=== PATIENT | female | born 1960 | race Caucasian/White ===

== ENCOUNTER → 2024-03-02 13:55 | Outpatient (REF) | payer OTHER, SELFPAY | LOC: RAD 13:55 | PROVIDERS: ATTENDING PHYSICIAN Nurse Practitioner Family; FAMILY PHYSICIAN Family Medicine | DX: R10.9 Unspecified abdominal pain (principal) | CPT/HCPCS: 76775 ==

== ENCOUNTER → 2024-04-20 11:39 | Outpatient (REF) | payer OTHER, SELFPAY | LOC: WDC 11:39 | PROVIDERS: ATTENDING PHYSICIAN Obstetrics & Gynecology; FAMILY PHYSICIAN Family Medicine | DX: Z12.31 Encounter for screening mammogram for malignant neoplasm of breast (principal) | CPT/HCPCS: 77063; 77067 ==

== ENCOUNTER → 2024-05-05 08:34 | Outpatient (REF) | payer OTHER, SELFPAY | LOC: WDC 08:34 | PROVIDERS: ATTENDING PHYSICIAN Obstetrics & Gynecology; FAMILY PHYSICIAN Family Medicine | DX: R92.8 Other abnormal and inconclusive findings on diagnostic imaging of breast (principal) | CPT/HCPCS: 76642 ==

== ENCOUNTER → 2024-05-20 08:13 | Outpatient (REF) | payer OTHER, SELFPAY ==
--- NOTE | 2024-05-20 13:37 | OID.BR.INTR ---
[facility] Breast Navigator - Initial
- -
Date of Contact: 05/20/24
Met with patient. Patient given written information on navigator services available at [facility]. Will follow up as needed per protocol.
== END ==
LOC: WDC 08:13
PROVIDERS: ATTENDING PHYSICIAN Obstetrics & Gynecology; FAMILY PHYSICIAN Family Medicine
DX: N63.14 Unspecified lump in the right breast, lower inner quadrant (principal)
CPT/HCPCS: 88305; 19083; 88341; 88342; 88360; A4648

== ENCOUNTER 2024-06-19 06:33 | Day surgery (SDC) | payer OTHER, SELFPAY ==
[2024-06-19] VITALS (10 sets, daily range): BP systolic 110–146; BP diastolic 57–82; BMI 22.5
[2024-06-19] MEDS: TYLENOL 1000 MG PO (09:55)
[2024-06-19] MEDS: VANCOCIN 200 IV (09:55)
[2024-06-19] MEDS: LOVENOX 40 MG SC (09:59)
== END 2024-06-19 13:19 | disposition home or self-care (01) ==
LOC: SDS 06:33
PROVIDERS: ATTENDING PHYSICIAN Surgery; FAMILY PHYSICIAN Family Medicine
DX: C50.911 Malignant neoplasm of unspecified site of right female breast (principal); N60.11 Diffuse cystic mastopathy of right breast; Z17.0 Estrogen receptor positive status [ER+]
CPT/HCPCS: 38525; 19301; 88305; 88307; 88332; 76098; 88331; 88333; 88342; A4648; L8000

== ENCOUNTER → 2024-07-16 13:53 | Outpatient (REF) | payer OTHER, SELFPAY | LOC: MRI 3T 13:53 | PROVIDERS: ATTENDING PHYSICIAN Physician Assistant; FAMILY PHYSICIAN Family Medicine | DX: D32.9 Benign neoplasm of meninges, unspecified (principal) | CPT/HCPCS: 70553; A9575 ==

== ENCOUNTER 2024-12-02 07:55 | Outpatient (RCR) | payer OTHER, SELFPAY | END 2024-12-02 23:59 | disposition home or self-care (01) | LOC: RPT 07:55 | PROVIDERS: ATTENDING PHYSICIAN Radiology Radiation Oncology; FAMILY PHYSICIAN Family Medicine | DX: C50.111 Malignant neoplasm of central portion of right female breast (principal); Z17.0 Estrogen receptor positive status [ER+]; L90.5 Scar conditions and fibrosis of skin; M62.81 Muscle weakness (generalized); Z98.890 Other specified postprocedural states | CPT/HCPCS: 97140; 97163; 97530 ==

== ENCOUNTER → 2024-12-04 09:37 | Outpatient (REF) | payer OTHER, SELFPAY | LOC: WOUND 09:37 | PROVIDERS: ATTENDING PHYSICIAN Surgery; FAMILY PHYSICIAN Family Medicine | DX: T81.31XA Disruption of external operation (surgical) wound, not elsewhere classified, initial encounter (principal); L59.8 Other specified disorders of the skin and subcutaneous tissue related to radiation; Z98.890 Other specified postprocedural states; Z86.011 Personal history of benign neoplasm of the brain; D25.9 Leiomyoma of uterus, unspecified; Y83.8 Other surgical procedures as the cause of abnormal reaction of the patient, or of later complication, without mention of misadventure at the time of the procedure | CPT/HCPCS: 99204 ==

== ENCOUNTER 2024-12-22 09:46 | Outpatient (RCR) | payer OTHER, SELFPAY | END 2024-12-22 23:59 | disposition home or self-care (01) | LOC: RPT 09:46 | PROVIDERS: ATTENDING PHYSICIAN Radiology Radiation Oncology; FAMILY PHYSICIAN Family Medicine | DX: C50.111 Malignant neoplasm of central portion of right female breast (principal); Z17.0 Estrogen receptor positive status [ER+]; L90.5 Scar conditions and fibrosis of skin; M62.81 Muscle weakness (generalized) | CPT/HCPCS: 97110; 97140 ==

== ENCOUNTER → 2025-01-26 11:23 | Outpatient (REF) | payer OTHER, SELFPAY | LOC: RAD 11:23 | PROVIDERS: ATTENDING PHYSICIAN Specialist; FAMILY PHYSICIAN Family Medicine | DX: N28.1 Cyst of kidney, acquired (principal) | CPT/HCPCS: 76775 ==

== ENCOUNTER → 2025-02-26 09:45 | Outpatient (REF) | payer OTHER, SELFPAY | LOC: RAD 09:45 | PROVIDERS: ATTENDING PHYSICIAN Obstetrics & Gynecology | DX: Z78.0 Asymptomatic menopausal state (principal) | CPT/HCPCS: 77080 ==

== ENCOUNTER → 2025-04-16 12:03 | Outpatient (REF) | payer OTHER, SELFPAY | LOC: MRI 12:03 | PROVIDERS: ATTENDING PHYSICIAN Specialist; FAMILY PHYSICIAN Family Medicine | DX: N28.89 Other specified disorders of kidney and ureter (principal) | CPT/HCPCS: 74183; A9575 ==

== ENCOUNTER → 2025-04-21 10:32 | Outpatient (REF) | payer OTHER, SELFPAY | LOC: WDC 10:32 | PROVIDERS: ATTENDING PHYSICIAN Family Medicine Geriatric Medicine; FAMILY PHYSICIAN Family Medicine | DX: Z12.31 Encounter for screening mammogram for malignant neoplasm of breast (principal); Z85.3 Personal history of malignant neoplasm of breast | CPT/HCPCS: 77063; 77067 ==

== ENCOUNTER → 2025-04-22 08:57 | Outpatient (REF) | payer OTHER, SELFPAY | LOC: RAD 08:57 | PROVIDERS: ATTENDING PHYSICIAN Obstetrics & Gynecology; FAMILY PHYSICIAN Family Medicine | DX: D21.9 Benign neoplasm of connective and other soft tissue, unspecified (principal); R14.0 Abdominal distension (gaseous) | CPT/HCPCS: 76830; 76856 ==

== ENCOUNTER → 2025-05-12 09:37 | Outpatient (REF) | payer OTHER, SELFPAY | LOC: WDC 09:37 | PROVIDERS: ATTENDING PHYSICIAN Family Medicine Geriatric Medicine; FAMILY PHYSICIAN Family Medicine | DX: R92.333 Mammographic heterogeneous density, bilateral breasts (principal) | CPT/HCPCS: 76641 ==

== ENCOUNTER 2025-07-07 17:36 | Inpatient (IN) | payer OTHER, SELFPAY ==
[2025-07-07] VITALS (14 sets, daily range): BP systolic 99–121; BP diastolic 45–83; BMI 24.6
[2025-07-07 12:17] LABS: Hematocrit 36.7 % (37.0-47.0); Hemoglobin 12.6 g/dL (12.0-16.0); Mean Corp Hgb Conc. 34.3 g/dL (33.0-37.0); Mean Corpuscular Volume 87.4 fL (81.0-99.0); Nucleated Red Blood Cells % 0 %; Platelet Count 259 10^3/uL (130-400); Red Cell Dist. Width 12.2 % (11.5-14.5)
[2025-07-07 12:35] LABS: ALT (SGPT) 29 U/L (0-35); AST (SGOT) 102 U/L (14-36); Albumin 4.3 g/dl (3.5-5.0); Alkaline Phosphatase 77 U/L (38-126); Blood Urea Nitrogen 26 mg/dl (7-17); Calcium 9.4 mg/dl (8.4-10.2); Carbon Dioxide 27 mmol/L (22-30); Chloride 101 mmol/L (98-107); Glucose 146 mg/dl (70-99); Lipase 96 U/L (23-300); Potassium 4.4 mmol/L (3.5-5.1); Sodium 136 mmol/L (135-145); Total Protein 6.9 g/dl (6.3-8.2); eGFR > 60.00
[2025-07-07 12:49] LABS: Troponin I 9.400 ng/ml
[2025-07-07 12:50] LABS: COVID-19 Antigen Negative (Negative)
[2025-07-07] MEDS: NSS 1000 IV (12:55)
[2025-07-07] MEDS: LOW STRENGTH ASPIRIN 324 MG PO (13:06)
[2025-07-07] MEDS: ZOFRAN 4 MG IV (13:06)
[2025-07-07] MEDS: MORPHINE SULFATE 2 MG IV (13:09)
--- NOTE | 2025-07-07 13:25 | ED.GENMED ---
History of Present Illness
<DO America Gupta Last Filed: 07/09/25 15:17>
General
Chief Complaint: Chest Pain
Time Seen by Provider: 07/07/25 12:19
History of Present Illness
History of Present Illness:
see MDM
Past History
<DO America Gupta Last Filed: 07/09/25 15:17>
Past History
ED Past Medical History: Other (Fibroids, diverticulosis)
ED Past Surgical History: Other (Neurosurgery at [facility] 2 resected meningioma on February 22.)
Social History
Tobacco: Non-smoker
Alcohol: Occasional
Drug: None
Personal:
Living: with family
Employment: Not employed
Family History
Family History: Other (Noncontributory)
Phy Exam
<DO America Gupta Last Filed: 07/09/25 15:17>
Physical Exam
Physical Exam:
see MDM
Scores
<DO America Gupta Last Filed: 07/09/25 15:17>
Heart Score for Chest Pain Patients
STEMI patient?: No
History: Highly Suspicious
ECG: Significant ST-Depression
Age: >45 - <65 years
Risk Factors: 1 or 2 Risk Factors
Troponin: >/= 3 x Normal Limit
Heart Score for Chest Pain Patients: 8
Heart Score Risk: 72.7 % MACE over next 6 weeks
<Julia Gonzalez PA-C - Last Filed: 07/10/25 15:41>
Heart Score for Chest Pain Patients
Heart Score for Chest Pain Patients: 8
Heart Score Risk: 72.7 % MACE over next 6 weeks
Course
<DO America Gupta Last Filed: 07/09/25 15:17>
Orders/Labs/Results
Orders:
Orders
07/07/25 11:48
Electrocardiogram (*1) Urgent
Reason for Study: Chest Pain
EKG- Treatment ONCE
07/07/25 12:07
Complete Blood Count/With Diff Urgent
Comprehensive Metabolic Panel Urgent
Lipase Urgent
Troponin I Urgent
07/07/25 12:08
COVID-19 Antigen Urgent
Source: Nasal Swab
Influenza A+B Rapid Molecular Urgent
PRASANTH Source: Nasal Swab
Specimen Description:
07/07/25 12:29
Electrocardiogram (*1) Urgent
Reason for Study: Chest Pain
EKG- Treatment ONCE
07/07/25 12:30
CT Head W/o Iv Contrast Urgent
Comment:
Reason For Exam: MENINGIOMA RESECTION, AMS, FEVER, L ARM WEAK
07/07/25 12:36
Lactic Acid Urgent
Blood Culture Q30M
PRASANTH Source: Blood/Venous
Specimen Description:
07/07/25 12:37
0.9% Sodium Chloride 1000 ml [Nss] 1,000 ml IV BOLUS
07/07/25 12:56
Aspirin Chewable [Low Strength Aspirin] 324 mg PO NOW STA
07/07/25 13:01
Morphine Sulfate 2 mg IV NOW STA
Ondansetron Injectable [Zofran] 4 mg IV NOW STA
07/07/25 13:06
CT Chest PE Study Urgent
Comment:
Reason For Exam: NSTEMI,
07/07/25 13:18
Blood Culture Q30M
PRASANTH Source: Blood/Venous
Specimen Description:
07/07/25 13:54
Echo 2D MMode Color/Doppler Urgent
Reason for Study: chest pain, Troponin 9
Cardiology Consult: Kwaku Quigley
07/07/25 14:[address] Non Medication Order As Directed
Physician Order: PTT 6 hours after initial start of Heparin infusion
Above order entered?: Yes
07/07/25 14:30
Heparin 99443 Units/250 ml 25,000 units in 250 ml IV PER PROTOCOL
Weight to be used for heparin protocol in kilograms (kg):: 59
Protocol:: Cardiac Tx/Acute Coronary
PTT Goal Range to be used:: PTT 73 to 111 seconds
Order type:: Initial
INITIAL Infusion Dose (UNITS/KG/hr) & then follow protocol:: 15 units/kg/hr
Infusion Dose in UNITS/hr & then follow protocol (UNITS/hr):: 900
INFUSION RATE in mL/hr & then follow protocol (mL/hr):: 9
PTT less than or equal to 64 seconds:: Increase rate by 200 units/hr (+ 2 mL/hr)
PTT 64.1 to 72.9 seconds:: Increase rate by 100 units/hr (+ 1 mL/hr)
PTT 73 to 111 seconds:: Target Range. No change in rate.
PTT 111.1 to 130.9 seconds:: Decrease rate by 100 units/hr (- 1 mL/hr)
PTT 131 to 199.9 seconds:: HOLD for 1 hr. Then decrease rate by 200 units/hr (- 2 mL/hr)
PTT greater than or equal to 200 seconds:: HOLD for 2 hrs & Notify Provider. Then decrease by 200 units/hr (-
2 mL/hr)
Lab follow-up:: Each change, PTT q6h until 2 consecutive are therapeutic. Then PTT
daily.
07/07/25 14:34
PTT Urgent
Comment: Obtain baseline before beginning heparin infusion if not already collected
Troponin I Urgent
07/07/25 14:35
Cefepime HCl [Maxipime] 1,000 mg IV NOW STA
Vancomycin [Vancocin] 1,500 mg 0.9% Sodium Chloride 500 ml [Nss] 500 ml IV NOW
07/07/25 14:57
Urinalysis Reflex To Culture Urgent
Date Specimen was Collected: 07/07/25
Time Specimen was Collected: 14:52
Urine Microscopic Reflex Cult Urgent
Urine Culture Urgent
PRASANTH Source: U
Specimen Description:
Date Specimen was Collected: 07/07/25
Time Specimen was Collected: 14:52
07/07/25 Dinner
Cholesterol Lowering
At Your Request: Limited Participation
Cholesterol Lowering: Sodium, 2 Gram
Cholesterol Lowering
At Your Request: Limited Participation
Cholesterol Lowering: Sodium, 2 Gram
07/07/25 15:01
Sterile Water [Sterile Water For Injection] 10 ml .ROUTE .STK-MED ONE
07/07/25 15:26
Verapamil Injectable [Isoptin/Verapamil Injection] 5 mg .ROUTE .STK-MED ONE
07/07/25 15:27
Fentanyl Citrate/Pf [Sublimaze] 100 mcg .ROUTE .STK-MED ONE
Heparin 10,000 units .ROUTE .STK-MED ONE
Heparin 1000 Units/500 ml [Heparin] 1,000 units in 500 ml .ROUTE .STK-MED
Heparin Sodium,Porcine/Ns/Pf [Heparin 2000 Units/1000 ml] 2,000 unit in 1,000 ml .ROUTE .STK-MED
Midazolam HCl [Versed] 2 mg .ROUTE .STK-MED ONE
Nitroglycerin [Tridil] 1,500 mcg .ROUTE .STK-MED ONE
07/07/25 15:28
Lidocaine HCl/Pf [Xylocaine-Mpf 1% Vial] See Dose Instructions .ROUTE .STK-MED ONE
07/07/25 15:39
Verapamil Injectable [Isoptin/Verapamil Injection] 5 mg .ROUTE .STK-MED ONE
07/07/25 15:40
Heparin 1000 Units/500 ml [Heparin] 1,000 units in 500 ml .ROUTE .STK-MED
Heparin Sodium,Porcine/Ns/Pf [Heparin 2000 Units/1000 ml] 2,000 unit in 1,000 ml .ROUTE .STK-MED
Nitroglycerin [Tridil] 1,500 mcg .ROUTE .STK-MED ONE
07/07/25 15:41
Lidocaine HCl/Pf [Xylocaine-Mpf 1% Vial] 50 mg .ROUTE .STK-MED ONE
07/07/25 16:34
Admit/Transfer Patient As Directed
Co-Sign Provider:
Level of Care: Inpatient admission
Assign to:: IVU
Physician / Group: Hospitalist
Diagnosis: NSTEMI
Reason for Hospitalization: NSTEMI
Expected length of stay greater than two midnights?: Yes
ELOS- Estimated Length of Stay in days: 3
I certify the patient meets the requirements for IP care: Yes
PRN Pain Medication Management As Directed
May give lesser potent ordered pain med per pt: Yes
preference::
Protocol:: Medication orders for pain may be administered in a
manner that supports deferring to patient preference
when the pt is:
- Requesting an ordered lesser potent pain medication.
Least to most potent pain medications are defined
as: acetaminophen < NSAID < tramadol < opioids
(morphine, oxycodone, hydromorphone).
- Requesting a lesser dose of the same medication IF
ORDERED.
- Requesting a less intrusive route of administration
if both routes are prescribed by the provider (PO <
IV).
07/07/25 16:36
Code Status As Directed
Resuscitation Status: Full Code
07/07/25 16:38
Lidocaine HCl/Pf [Xylocaine-Mpf 1% Vial] 100 mg .ROUTE .STK-MED ONE
07/07/25 17:06
Lactic Acid Urgent
07/07/25 17:18
Electrocardiogram (*1) Urgent
Reason for Study: Other
Other Reason for Exam: s/p intervention
Comment: dca
CARDIAC REHAB CONSULT Routine
Co-Sign Provider:
Cardiac Rehab & Exercise Evaluation Referral
Type of Cardiac Rehab Referral: Outpatient
Diagnosis: NSTEMI
Date of Diagnosis/Surgery: 07/07/25
Referring Provider: Kami Shearer
[facility]ensive Cardiac Rehab Exercise Prescription
The above named person is capable of participating in an intensive cardiac rehab exercise therapy program
under the guidance of the [facility] cardiac rehab staff, outpatient registered dieticians and
supervision of a physician.
ICR Program Objectives:
Provide supervised exercise, cooking classes, nutritional counseling and healthy mind-set education to
improve the function/symptom free work capacity to an optimal level as well as control risk factors to
prevent the progression of heart disease. During the supervised exercise therapy session some or all of
the following may be included in the cardiac rehab session: ECG telemetry, BP, heart rate, rate of
perceived exertion, symptoms/tolerance, cholesterol testing and education. Exercise modalities may
include: treadmill, upright or recumbent bike, spin bike, rowing machine, elliptical, recumbent
elliptical, arm-bike machine, recumbent stepper and free weights.
Intensity:
All CR staff will use ACSM guidelines: Most patients will exercise in the following range: Heart Rate
[place] range of 40% to 80% & Oxygen Uptake reserve range 40-80% (VO2R). Peak heart rate and VO2 are
derived from the cardiac rehab submaximal graded exercise test at RPE of 13/14 out of 20. Initial
intensity range: RPE 11 to 14/20 and may expand to 11 to 16/20.
Duration & Frequency:
If appropriate the patient will be progressed up to 40 minutes of exercise therapy. Patients will be
instructed to come three times a week in cardiac rehab and at a home/other gym to achieve optimal
physical activity/exercies i.e. 4000-10,000 steps per day.
Education:
The patient will receive one-on-one education during their orientation, initial exercise evaluation, ITP
reassessments and discharge session. Each exercise session will also include an education class (30-40
minutes).
Acetaminophen [Tylenol] 650 mg PO Q4HPRN PRN
Activity As Directed
Activity Level: Bedrest
Comment: refer to hemostasis device used for bedrest duration, then ambulate ad brittney
Site Project Manager Procedure As Directed
Cardiac Cath Procedure: percutaneous coronary intervention
Femoral Artery Hemostasis Method As Directed
Procedure performed:: Percutaneous Coronary Int
Type of femoral hemostasis method used:: Internal Closure Device
Duration of bedrest (hours):: 4
Call provider if:: hematoma present after hemostasis achieved
Head of Bed-Restrictions As Directed
Comment: may elevate head of bed 30 degrees
Intake/ Output As Directed
Frequency: Per unit guidelines
Notify MD As Directed
Notify physician if: immediately for chest pain or bleeding from access site(s)
Site Checks As Directed
Check access site for bleeding/hematoma: Yes
Comment: on arrival, Q15min x4, Q30min x2, Q1 hr x2, Q2 hr x2, Q4 hr or per
protocol
Vascular Checks As Directed
Location: distal to access site - pulse check
Frequency: Other
Comment: on arrival, Q15min x4, Q30min x2, Q1 hr x2, Q2 hr x2, Q4 hr or per protocol
Vital Signs As Directed
Frequency: Other
Additional Instructions:: on arrival, Q15min x4, Q30min x2, Q1 hr x2, Q2 hr x2, then Q4 hr or per unit
protocol
07/07/25 17:30
0.9% Sodium Chloride 1000 ml [Nss] 1,000 ml IV PER PROTOCOL
Infusion rate in mL/kg/hr:: 1.5
Infusion rate in mL/hr:: 89
Duration of infusion (hours):: 5
07/07/25 18:26
Acetaminophen [Tylenol] 1,000 mg PO Q6H PRN MILD PAIN
Bisacodyl [Dulcolax] 10 mg RECTAL [id number] PRN
CLONAZepam [CLONAZepam ODT] 0.5 mg PO DAILYPRN PRN SEIZURES
Docusate W/Senna [Senokot-S] 1 tablet PO BIDPRN PRN
Heparin 44664 Units/250 ml 25,000 units in 250 ml IV PER PROTOCOL
Weight to be used for heparin protocol in kilograms (kg):: 59
Protocol:: Cardiac Tx/Acute Coronary
PTT Goal Range to be used:: PTT 73 to 111 seconds
Order type:: Initial
INITIAL Infusion Dose (UNITS/KG/hr) & then follow protocol:: 12 units/kg/hr
Infusion Dose in UNITS/hr & then follow protocol (UNITS/hr):: 700
INFUSION RATE in mL/hr & then follow protocol (mL/hr):: 7
PTT less than or equal to 64 seconds:: Increase rate by 200 units/hr (+ 2 mL/hr)
PTT 64.1 to 72.9 seconds:: Increase rate by 100 units/hr (+ 1 mL/hr)
PTT 73 to 111 seconds:: Target Range. No change in rate.
PTT 111.1 to 130.9 seconds:: Decrease rate by 100 units/hr (- 1 mL/hr)
PTT 131 to 199.9 seconds:: HOLD for 1 hr. Then decrease rate by 200 units/hr (- 2 mL/hr)
PTT greater than or equal to 200 seconds:: HOLD for 2 hrs & Notify Provider. Then decrease by 200 units/hr (-
2 mL/hr)
Lab follow-up:: Each change, PTT q6h until 2 consecutive are therapeutic. Then PTT
daily.
Polyethylene Glycol Powder [Miralax] 17 grams PO DAILYPRN PRN
Rosuvastatin Calcium [Crestor] 10 mg PO QPM
VANCOMYCIN Pharmacy to Dose [VANCOCIN Pharmacy to Dose] 1 each Pharmacy To Prepare [Call Pharmacy To Prepare] 0 ml IV PER PROTOCOL
07/07/25 18:26
CARDIOLOGY CONSULT Urgent
Consulting Provider: Kwaku Quigley
Was physician already notified: Yes
INFECTIOUS DISEASE CONSULT Routine
Consulting Provider: Avelina Kapadia
Was physician already notified: Yes
Heparin Protocol- PTT Orders As Directed
PTT per Heparin protocol: -Obtain CBC and baseline PTT - if not already collected.
-Obtain PTT 6 hours from start of infusion. Then, every 6 hours until 2 consecutive
PTT's are therapeutic. Then, PTT Daily.
-With each rate change, obtain PTT every 6 hours until 2 consecutive PTT's are
therapeutic. Then, PTT Daily.
Activity As Directed
Activity Level: Out of Bed-Early Mobility
Intake/ Output As Directed
Frequency: Per unit guidelines
Notify MD As Directed
Notify physician if: PTT is greater than or equal to 200.
Vital Signs As Directed
Frequency: Per unit guidelines
Weight As Directed
Frequency: Daily
07/07/25 19:48
Lactic Acid Q6H
Troponin I Q6H
07/07/25 20:00
CefTRIAXone [Rocephin] 2,000 mg IV Q24H
Levetiracetam [Keppra] 750 mg PO BID
07/07/25 22:00
Gabapentin [Neurontin] 600 mg PO HS
07/08/25 00:44
Lactic Acid Q6H
Troponin I Q6H
07/08/25 06:00
Electrocardiogram (*1) IN AM
Reason for Study: Other
Other Reason for Exam: s/p intervention
Comment: dca
07/08/25 06:10
Complete Blood Count/With Diff IN AM
PTT IN AM
Troponin I Q6H
07/08/25 08:00
Ezetimibe [Zetia] 10 mg PO DAILY
Ticagrelor [Brilinta] 90 mg PO BID
07/09/25 04:29
Complete Blood Count/No Diff Q2D
Comment: Notify MD if platelet count is <130,000 or decreases by 50% from baseline
07/11/25 06:00
Complete Blood Count/No Diff Q2D
Comment: Notify MD if platelet count is <130,000 or decreases by 50% from baseline
07/13/25 06:00
Complete Blood Count/No Diff Q2D
Comment: Notify MD if platelet count is <130,000 or decreases by 50% from baseline
07/15/25 06:00
Complete Blood Count/No Diff Q2D
Comment: Notify MD if platelet count is <130,000 or decreases by 50% from baseline
07/17/25 06:00
Complete Blood Count/No Diff Q2D
Comment: Notify MD if platelet count is <130,000 or decreases by 50% from baseline
07/19/25 06:00
Complete Blood Count/No Diff Q2D
Comment: Notify MD if platelet count is <130,000 or decreases by 50% from baseline
07/21/25 06:00
Complete Blood Count/No Diff Q2D
Comment: Notify MD if platelet count is <130,000 or decreases by 50% from baseline
07/23/25 06:00
Complete Blood Count/No Diff Q2D
Comment: Notify MD if platelet count is <130,000 or decreases by 50% from baseline
Abnormal Lab Results
07/07/25 07/07/25 07/07/25
12:07 12:36 14:34
WBC 13.2 H 10^3/uL
(4.8-10.8)
Hct 36.7 L %
(37.0-47.0)
Abs Immat Gran (auto) 0.1 H 10^3/uL
(0-0.05)
Absolute Neuts (auto) 11.1 H 10^3/uL
(1.4-6.5)
Absolute Lymphs (auto) 1.1 L 10^3/uL
(1.2-3.4)
Absolute Monos (auto) 0.9 H 10^3/uL
(0.1-0.6)
Neutrophils % 84.0 H %
(42.2-75.2)
Lymphocytes % 8.6 L %
(20.5-51.1)
BUN 26 H mg/dl
(7-17)
Glucose 146 H mg/dl
(70-99)
Lactic Acid 2.7 H mmol/L
(0.7-2.0)
AST 102 H U/L
(14-36)
Troponin I 9.400 H* ng/ml 16.100 H* D ng/ml
Urine Ketones
Ur Occult Blood Reflex
Urine RBC
Urine WBC (Reflex)
Urine Bacteria (Reflex)
Urine Albumin (Reflex)
POC ACT Low Range
07/07/25 07/07/25 07/07/25
14:57 16:56 17:05
WBC
Hct
Abs Immat Gran (auto)
Absolute Neuts (auto)
Absolute Lymphs (auto)
Absolute Monos (auto)
Neutrophils %
Lymphocytes %
BUN
Glucose
Lactic Acid
AST
Troponin I
Urine Ketones 1+ A
(Negative)
Ur Occult Blood Reflex 4+ A
(Negative)
Urine RBC 21-25 A /HPF
(0-2)
Urine WBC (Reflex) 11-15 A /HPF
(0-5)
Urine Bacteria (Reflex) Few A
(Negative)
Urine Albumin (Reflex) 2+ A
(Neg - Trace)
POC ACT Low Range 216 H Seconds 276 H Seconds
(116-155) (116-155)
07/07/25
17:20
WBC
Hct
Abs Immat Gran (auto)
Absolute Neuts (auto)
Absolute Lymphs (auto)
Absolute Monos (auto)
Neutrophils %
Lymphocytes %
BUN
Glucose
Lactic Acid
AST
Troponin I
Urine Ketones
Ur Occult Blood Reflex
Urine RBC
Urine WBC (Reflex)
Urine Bacteria (Reflex)
Urine Albumin (Reflex)
POC ACT Low Range 295 H Seconds
(116-155)
07/07/25 12:07
07/07/25 12:07
Vital Signs
Initial and Last Documented VS:
Initial Vital Signs
Temp Pulse Resp BP Pulse Ox
36.9 C 58 18 106/58 99
07/07/25 11:56 07/07/25 11:56 07/07/25 11:56 07/07/25 11:56 07/07/25 11:56
Last Documented Vital Signs
Temp Pulse Resp BP Pulse Ox
37.2 C 87 18 97/55 98
07/10/25 12:16 07/10/25 13:00 07/10/25 12:16 07/10/25 12:18 07/10/25 12:16
<Julia Gonzalez PA-C - Last Filed: 07/10/25 15:41>
Orders/Labs/Results
Orders:
Orders
07/07/25 11:48
Electrocardiogram (*1) Urgent
Reason for Study: Chest Pain
EKG- Treatment ONCE
07/07/25 12:07
Complete Blood Count/With Diff Urgent
Comprehensive Metabolic Panel Urgent
Lipase Urgent
Troponin I Urgent
07/07/25 12:08
COVID-19 Antigen Urgent
Source: Nasal Swab
Influenza A+B Rapid Molecular Urgent
PRASANTH Source: Nasal Swab
Specimen Description:
07/07/25 12:29
Electrocardiogram (*1) Urgent
Reason for Study: Chest Pain
EKG- Treatment ONCE
07/07/25 12:30
CT Head W/o Iv Contrast Urgent
Comment:
Reason For Exam: MENINGIOMA RESECTION, AMS, FEVER, L ARM WEAK
07/07/25 12:36
Lactic Acid Urgent
Blood Culture Q30M
PRASANTH Source: Blood/Venous
Specimen Description:
07/07/25 12:37
0.9% Sodium Chloride 1000 ml [Nss] 1,000 ml IV BOLUS
07/07/25 12:56
Aspirin Chewable [Low Strength Aspirin] 324 mg PO NOW STA
07/07/25 13:01
Morphine Sulfate 2 mg IV NOW STA
Ondansetron Injectable [Zofran] 4 mg IV NOW STA
07/07/25 13:06
CT Chest PE Study Urgent
Comment:
Reason For Exam: NSTEMI,
07/07/25 13:18
Blood Culture Q30M
PRASANTH Source: Blood/Venous
Specimen Description:
07/07/25 13:54
Echo 2D MMode Color/Doppler Urgent
Reason for Study: chest pain, Troponin 9
Cardiology Consult: Kwaku Quigley
07/07/25 14:[address] Non Medication Order As Directed
Physician Order: PTT 6 hours after initial start of Heparin infusion
Above order entered?: Yes
07/07/25 14:30
Heparin [id number] Units/250 ml 25,000 units in 250 ml IV PER PROTOCOL
Weight to be used for heparin protocol in kilograms (kg):: 59
Protocol:: Cardiac Tx/Acute Coronary
PTT Goal Range to be used:: PTT 73 to 111 seconds
Order type:: Initial
INITIAL Infusion Dose (UNITS/KG/hr) & then follow protocol:: 15 units/kg/hr
Infusion Dose in UNITS/hr & then follow protocol (UNITS/hr):: 900
INFUSION RATE in mL/hr & then follow protocol (mL/hr):: 9
PTT less than or equal to 64 seconds:: Increase rate by 200 units/hr (+ 2 mL/hr)
PTT 64.1 to 72.9 seconds:: Increase rate by 100 units/hr (+ 1 mL/hr)
PTT 73 to 111 seconds:: Target Range. No change in rate.
PTT 111.1 to 130.9 seconds:: Decrease rate by 100 units/hr (- 1 mL/hr)
PTT 131 to 199.9 seconds:: HOLD for 1 hr. Then decrease rate by 200 units/hr (- 2 mL/hr)
PTT greater than or equal to 200 seconds:: HOLD for 2 hrs & Notify Provider. Then decrease by 200 units/hr (-
2 mL/hr)
Lab follow-up:: Each change, PTT q6h until 2 consecutive are therapeutic. Then PTT
daily.
07/07/25 14:34
PTT Urgent
Comment: Obtain baseline before beginning heparin infusion if not already collected
Troponin I Urgent
07/07/25 14:35
Cefepime HCl [Maxipime] 1,000 mg IV NOW STA
Vancomycin [Vancocin] 1,500 mg 0.9% Sodium Chloride 500 ml [Nss] 500 ml IV NOW
07/07/25 14:57
Urinalysis Reflex To Culture Urgent
Date Specimen was Collected: 07/07/25
Time Specimen was Collected: 14:52
Urine Microscopic Reflex Cult Urgent
Urine Culture Urgent
PRASANTH Source: U
Specimen Description:
Date Specimen was Collected: 07/07/25
Time Specimen was Collected: 14:52
07/07/25 Dinner
Cholesterol Lowering
At Your Request: Limited Participation
Cholesterol Lowering: Sodium, 2 Gram
Cholesterol Lowering
At Your Request: Limited Participation
Cholesterol Lowering: Sodium, 2 Gram
07/07/25 15:01
Sterile Water [Sterile Water For Injection] 10 ml .ROUTE .STK-MED ONE
07/07/25 15:26
Verapamil Injectable [Isoptin/Verapamil Injection] 5 mg .ROUTE .STK-MED ONE
07/07/25 15:27
Fentanyl Citrate/Pf [Sublimaze] 100 mcg .ROUTE .STK-MED ONE
Heparin 10,000 units .ROUTE .STK-MED ONE
Heparin 1000 Units/500 ml [Heparin] 1,000 units in 500 ml .ROUTE .STK-MED
Heparin Sodium,Porcine/Ns/Pf [Heparin 2000 Units/1000 ml] 2,000 unit in 1,000 ml .ROUTE .STK-MED
Midazolam HCl [Versed] 2 mg .ROUTE .STK-MED ONE
Nitroglycerin [Tridil] 1,500 mcg .ROUTE .STK-MED ONE
07/07/25 15:28
Lidocaine HCl/Pf [Xylocaine-Mpf 1% Vial] See Dose Instructions .ROUTE .STK-MED ONE
07/07/25 15:39
Verapamil Injectable [Isoptin/Verapamil Injection] 5 mg .ROUTE .STK-MED ONE
07/07/25 15:40
Heparin 1000 Units/500 ml [Heparin] 1,000 units in 500 ml .ROUTE .STK-MED
Heparin Sodium,Porcine/Ns/Pf [Heparin 2000 Units/1000 ml] 2,000 unit in 1,000 ml .ROUTE .STK-MED
Nitroglycerin [Tridil] 1,500 mcg .ROUTE .STK-MED ONE
07/07/25 15:41
Lidocaine HCl/Pf [Xylocaine-Mpf 1% Vial] 50 mg .ROUTE .STK-MED ONE
07/07/25 16:34
Admit/Transfer Patient As Directed
Co-Sign Provider:
Level of Care: Inpatient admission
Assign to:: IVU
Physician / Group: Hospitalist
Diagnosis: NSTEMI
Reason for Hospitalization: NSTEMI
Expected length of stay greater than two midnights?: Yes
ELOS- Estimated Length of Stay in days: 3
I certify the patient meets the requirements for IP care: Yes
PRN Pain Medication Management As Directed
May give lesser potent ordered pain med per pt: Yes
preference::
Protocol:: Medication orders for pain may be administered in a
manner that supports deferring to patient preference
when the pt is:
- Requesting an ordered lesser potent pain medication.
Least to most potent pain medications are defined
as: acetaminophen < NSAID < tramadol < opioids
(morphine, oxycodone, hydromorphone).
- Requesting a lesser dose of the same medication IF
ORDERED.
- Requesting a less intrusive route of administration
if both routes are prescribed by the provider (PO <
IV).
07/07/25 16:36
Code Status As Directed
Resuscitation Status: Full Code
07/07/25 16:38
Lidocaine HCl/Pf [Xylocaine-Mpf 1% Vial] 100 mg .ROUTE .STK-MED ONE
07/07/25 17:06
Lactic Acid Urgent
07/07/25 17:18
Electrocardiogram (*1) Urgent
Reason for Study: Other
Other Reason for Exam: s/p intervention
Comment: dca
CARDIAC REHAB CONSULT Routine
Co-Sign Provider:
Cardiac Rehab & Exercise Evaluation Referral
Type of Cardiac Rehab Referral: Outpatient
Diagnosis: NSTEMI
Date of Diagnosis/Surgery: 07/07/25
Referring Provider: Kami Shearer
[facility] Intensive Cardiac Rehab Exercise Prescription
The above named person is capable of participating in an intensive cardiac rehab exercise therapy program
under the guidance of the [facility] cardiac rehab staff, outpatient registered dieticians and
supervision of a physician.
ICR Program Objectives:
Provide supervised exercise, cooking classes, nutritional counseling and healthy mind-set education to
improve the function/symptom free work capacity to an optimal level as well as control risk factors to
prevent the progression of heart disease. During the supervised exercise therapy session some or all of
the following may be included in the cardiac rehab session: ECG telemetry, BP, heart rate, rate of
perceived exertion, symptoms/tolerance, cholesterol testing and education. Exercise modalities may
include: treadmill, upright or recumbent bike, spin bike, rowing machine, elliptical, recumbent
elliptical, arm-bike machine, recumbent stepper and free weights.
Intensity:
All CR staff will use ACSM guidelines: Most patients will exercise in the following range: Heart Rate
[place] range of 40% to 80% & Oxygen Uptake reserve range 40-80% (VO2R). Peak heart rate and VO2 are
derived from the cardiac rehab submaximal graded exercise test at RPE of 13/14 out of 20. Initial
intensity range: RPE 11 to 14/20 and may expand to 11 to 16/20.
Duration & Frequency:
If appropriate the patient will be progressed up to 40 minutes of exercise therapy. Patients will be
instructed to come three times a week in cardiac rehab and at a home/other gym to achieve optimal
physical activity/exercies i.e. 4000-10,000 steps per day.
Education:
The patient will receive one-on-one education during their orientation, initial exercise evaluation, ITP
reassessments and discharge session. Each exercise session will also include an education class (30-40
minutes).
Acetaminophen [Tylenol] 650 mg PO Q4HPRN PRN
Activity As Directed
Activity Level: Bedrest
Comment: refer to hemostasis device used for bedrest duration, then ambulate ad brittney
Site Project Manager Procedure As Directed
Cardiac Cath Procedure: percutaneous coronary intervention
Femoral Artery Hemostasis Method As Directed
Procedure performed:: Percutaneous Coronary Int
Type of femoral hemostasis method used:: Internal Closure Device
Duration of bedrest (hours):: 4
Call provider if:: hematoma present after hemostasis achieved
Head of Bed-Restrictions As Directed
Comment: may elevate head of bed 30 degrees
Intake/ Output As Directed
Frequency: Per unit guidelines
Notify MD As Directed
Notify physician if: immediately for chest pain or bleeding from access site(s)
Site Checks As Directed
Check access site for bleeding/hematoma: Yes
Comment: on arrival, Q15min x4, Q30min x2, Q1 hr x2, Q2 hr x2, Q4 hr or per
protocol
Vascular Checks As Directed
Location: distal to access site - pulse check
Frequency: Other
Comment: on arrival, Q15min x4, Q30min x2, Q1 hr x2, Q2 hr x2, Q4 hr or per protocol
Vital Signs As Directed
Frequency: Other
Additional Instructions:: on arrival, Q15min x4, Q30min x2, Q1 hr x2, Q2 hr x2, then Q4 hr or per unit
protocol
07/07/25 17:30
0.9% Sodium Chloride 1000 ml [Nss] 1,000 ml IV PER PROTOCOL
Infusion rate in mL/kg/hr:: 1.5
Infusion rate in mL/hr:: 89
Duration of infusion (hours):: 5
07/07/25 18:26
Acetaminophen [Tylenol] 1,000 mg PO Q6H PRN MILD PAIN
Bisacodyl [Dulcolax] 10 mg RECTAL [id number] PRN
CLONAZepam [CLONAZepam ODT] 0.5 mg PO DAILYPRN PRN SEIZURES
Docusate W/Senna [Senokot-S] 1 tablet PO BIDPRN PRN
Heparin 40552 Units/250 ml 25,000 units in 250 ml IV PER PROTOCOL
Weight to be used for heparin protocol in kilograms (kg):: 59
Protocol:: Cardiac Tx/Acute Coronary
PTT Goal Range to be used:: PTT 73 to 111 seconds
Order type:: Initial
INITIAL Infusion Dose (UNITS/KG/hr) & then follow protocol:: 12 units/kg/hr
Infusion Dose in UNITS/hr & then follow protocol (UNITS/hr):: 700
INFUSION RATE in mL/hr & then follow protocol (mL/hr):: 7
PTT less than or equal to 64 seconds:: Increase rate by 200 units/hr (+ 2 mL/hr)
PTT 64.1 to 72.9 seconds:: Increase rate by 100 units/hr (+ 1 mL/hr)
PTT 73 to 111 seconds:: Target Range. No change in rate.
PTT 111.1 to 130.9 seconds:: Decrease rate by 100 units/hr (- 1 mL/hr)
PTT 131 to 199.9 seconds:: HOLD for 1 hr. Then decrease rate by 200 units/hr (- 2 mL/hr)
PTT greater than or equal to 200 seconds:: HOLD for 2 hrs & Notify Provider. Then decrease by 200 units/hr (-
2 mL/hr)
Lab follow-up:: Each change, PTT q6h until 2 consecutive are therapeutic. Then PTT
daily.
Polyethylene Glycol Powder [Miralax] 17 grams PO DAILYPRN PRN
Rosuvastatin Calcium [Crestor] 10 mg PO QPM
VANCOMYCIN Pharmacy to Dose [VANCOCIN Pharmacy to Dose] 1 each Pharmacy To Prepare [Call Pharmacy To Prepare] 0 ml IV PER PROTOCOL
07/07/25 18:26
CARDIOLOGY CONSULT Urgent
Consulting Provider: Kwaku Quigley
Was physician already notified: Yes
INFECTIOUS DISEASE CONSULT Routine
Consulting Provider: Avelina Kapadia
Was physician already notified: Yes
Heparin Protocol- PTT Orders As Directed
PTT per Heparin protocol: -Obtain CBC and baseline PTT - if not already collected.
-Obtain PTT 6 hours from start of infusion. Then, every 6 hours until 2 consecutive
PTT's are therapeutic. Then, PTT Daily.
-With each rate change, obtain PTT every 6 hours until 2 consecutive PTT's are
therapeutic. Then, PTT Daily.
Activity As Directed
Activity Level: Out of Bed-Early Mobility
Intake/ Output As Directed
Frequency: Per unit guidelines
Notify MD As Directed
Notify physician if: PTT is greater than or equal to 200.
Vital Signs As Directed
Frequency: Per unit guidelines
Weight As Directed
Frequency: Daily
07/07/25 19:48
Lactic Acid Q6H
Troponin I Q6H
07/07/25 20:00
CefTRIAXone [Rocephin] 2,000 mg IV Q24H
Levetiracetam [Keppra] 750 mg PO BID
07/07/25 22:00
Gabapentin [Neurontin] 600 mg PO HS
07/08/25 00:44
Lactic Acid Q6H
Troponin I Q6H
07/08/25 06:00
Electrocardiogram (*1) IN AM
Reason for Study: Other
Other Reason for Exam: s/p intervention
Comment: dca
07/08/25 06:10
Complete Blood Count/With Diff IN AM
PTT IN AM
Troponin I Q6H
07/08/25 08:00
Ezetimibe [Zetia] 10 mg PO DAILY
Ticagrelor [Brilinta] 90 mg PO BID
07/09/25 04:29
Complete Blood Count/No Diff Q2D
Comment: Notify MD if platelet count is <130,000 or decreases by 50% from baseline
07/11/25 06:00
Complete Blood Count/No Diff Q2D
Comment: Notify MD if platelet count is <130,000 or decreases by 50% from baseline
07/13/25 06:00
Complete Blood Count/No Diff Q2D
Comment: Notify MD if platelet count is <130,000 or decreases by 50% from baseline
07/15/25 06:00
Complete Blood Count/No Diff Q2D
Comment: Notify MD if platelet count is <130,000 or decreases by 50% from baseline
07/17/25 06:00
Complete Blood Count/No Diff Q2D
Comment: Notify MD if platelet count is <130,000 or decreases by 50% from baseline
07/19/25 06:00
Complete Blood Count/No Diff Q2D
Comment: Notify MD if platelet count is <130,000 or decreases by 50% from baseline
07/21/25 06:00
Complete Blood Count/No Diff Q2D
Comment: Notify MD if platelet count is <130,000 or decreases by 50% from baseline
07/23/25 06:00
Complete Blood Count/No Diff Q2D
Comment: Notify MD if platelet count is <130,000 or decreases by 50% from baseline
Abnormal Lab Results
07/07/25 07/07/25 07/07/25
12:07 12:36 14:34
WBC 13.2 H 10^3/uL
(4.8-10.8)
Hct 36.7 L %
(37.0-47.0)
Abs Immat Gran (auto) 0.1 H 10^3/uL
(0-0.05)
Absolute Neuts (auto) 11.1 H 10^3/uL
(1.4-6.5)
Absolute Lymphs (auto) 1.1 L 10^3/uL
(1.2-3.4)
Absolute Monos (auto) 0.9 H 10^3/uL
(0.1-0.6)
Neutrophils % 84.0 H %
(42.2-75.2)
Lymphocytes % 8.6 L %
(20.5-51.1)
BUN 26 H mg/dl
(7-17)
Glucose 146 H mg/dl
(70-99)
Lactic Acid 2.7 H mmol/L
(0.7-2.0)
AST 102 H U/L
(14-36)
Troponin I 9.400 H* ng/ml 16.100 H* D ng/ml
Urine Ketones
Ur Occult Blood Reflex
Urine RBC
Urine WBC (Reflex)
Urine Bacteria (Reflex)
Urine Albumin (Reflex)
POC ACT Low Range
07/07/25 07/07/25 07/07/25
14:57 16:56 17:05
WBC
Hct
Abs Immat Gran (auto)
Absolute Neuts (auto)
Absolute Lymphs (auto)
Absolute Monos (auto)
Neutrophils %
Lymphocytes %
BUN
Glucose
Lactic Acid
AST
Troponin I
Urine Ketones 1+ A
(Negative)
Ur Occult Blood Reflex 4+ A
(Negative)
Urine RBC 21-25 A /HPF
(0-2)
Urine WBC (Reflex) 11-15 A /HPF
(0-5)
Urine Bacteria (Reflex) Few A
(Negative)
Urine Albumin (Reflex) 2+ A
(Neg - Trace)
POC ACT Low Range 216 H Seconds 276 H Seconds
(116-155) (116-155)
07/07/25
17:20
WBC
Hct
Abs Immat Gran (auto)
Absolute Neuts (auto)
Absolute Lymphs (auto)
Absolute Monos (auto)
Neutrophils %
Lymphocytes %
BUN
Glucose
Lactic Acid
AST
Troponin I
Urine Ketones
Ur Occult Blood Reflex
Urine RBC
Urine WBC (Reflex)
Urine Bacteria (Reflex)
Urine Albumin (Reflex)
POC ACT Low Range 295 H Seconds
([id number])
07/07/25 12:07
07/07/25 12:07
Vital Signs
Initial and Last Documented VS:
Initial Vital Signs
Temp Pulse Resp BP Pulse Ox
36.9 C 58 18 106/58 99
07/07/25 11:56 07/07/25 11:56 07/07/25 11:56 07/07/25 11:56 07/07/25 11:56
Last Documented Vital Signs
Temp Pulse Resp BP Pulse Ox
37.2 C 87 18 97/55 98
07/10/25 12:16 07/10/25 13:00 07/10/25 12:16 07/10/25 12:18 07/10/25 12:16
<Serafin Dixon, DO - Last Filed: 07/07/25 16:47>
Orders/Labs/Results
Orders:
Orders
07/07/25 11:48
Electrocardiogram (*1) Urgent
Reason for Study: Chest Pain
EKG- Treatment ONCE
07/07/25 12:07
Complete Blood Count/With Diff Urgent
Comprehensive Metabolic Panel Urgent
Lipase Urgent
Troponin I Urgent
07/07/25 12:08
COVID-19 Antigen Urgent
Source: Nasal Swab
Influenza A+B Rapid Molecular Urgent
PRASANTH Source: Nasal Swab
Specimen Description:
07/07/25 12:29
Electrocardiogram (*1) Urgent
Reason for Study: Chest Pain
EKG- Treatment ONCE
07/07/25 12:30
CT Head W/o Iv Contrast Urgent
Comment:
Reason For Exam: MENINGIOMA RESECTION, AMS, FEVER, L ARM WEAK
07/07/25 12:36
Lactic Acid Urgent
Blood Culture Q30M
PRASANTH Source: Blood/Venous
Specimen Description:
07/07/25 12:37
0.9% Sodium Chloride 1000 ml [Nss] 1,000 ml IV BOLUS
07/07/25 12:56
Aspirin Chewable [Low Strength Aspirin] 324 mg PO NOW STA
07/07/25 13:01
Morphine Sulfate 2 mg IV NOW STA
Ondansetron Injectable [Zofran] 4 mg IV NOW STA
07/07/25 13:06
CT Chest PE Study Urgent
Comment:
Reason For Exam: NSTEMI,
07/07/25 13:18
Blood Culture Q30M
PRASANTH Source: Blood/Venous
Specimen Description:
07/07/25 13:54
Echo 2D MMode Color/Doppler Urgent
Reason for Study: chest pain, Troponin 9
Cardiology Consult: Kwaku Quigley
07/07/25 14:[address] Non Medication Order As Directed
Physician Order: PTT 6 hours after initial start of Heparin infusion
Above order entered?: Yes
07/07/25 14:30
Heparin 43790 Units/250 ml 25,000 units in 250 ml IV PER PROTOCOL
Weight to be used for heparin protocol in kilograms (kg):: 59
Protocol:: Cardiac Tx/Acute Coronary
PTT Goal Range to be used:: PTT 73 to 111 seconds
Order type:: Initial
INITIAL Infusion Dose (UNITS/KG/hr) & then follow protocol:: 15 units/kg/hr
Infusion Dose in UNITS/hr & then follow protocol (UNITS/hr):: 900
INFUSION RATE in mL/hr & then follow protocol (mL/hr):: 9
PTT less than or equal to 64 seconds:: Increase rate by 200 units/hr (+ 2 mL/hr)
PTT 64.1 to 72.9 seconds:: Increase rate by 100 units/hr (+ 1 mL/hr)
PTT 73 to 111 seconds:: Target Range. No change in rate.
PTT 111.1 to 130.9 seconds:: Decrease rate by 100 units/hr (- 1 mL/hr)
PTT 131 to 199.9 seconds:: HOLD for 1 hr. Then decrease rate by 200 units/hr (- 2 mL/hr)
PTT greater than or equal to 200 seconds:: HOLD for 2 hrs & Notify Provider. Then decrease by 200 units/hr (-
2 mL/hr)
Lab follow-up:: Each change, PTT q6h until 2 consecutive are therapeutic. Then PTT
daily.
07/07/25 14:34
PTT Urgent
Comment: Obtain baseline before beginning heparin infusion if not already collected
Troponin I Urgent
07/07/25 14:35
Cefepime HCl [Maxipime] 1,000 mg IV NOW STA
Vancomycin [Vancocin] 1,500 mg 0.9% Sodium Chloride 500 ml [Nss] 500 ml IV NOW
07/07/25 14:57
Urinalysis Reflex To Culture Urgent
Date Specimen was Collected: 07/07/25
Time Specimen was Collected: 14:52
Urine Microscopic Reflex Cult Urgent
Urine Culture Urgent
PRASANTH Source: U
Specimen Description:
Date Specimen was Collected: 07/07/25
Time Specimen was Collected: 14:52
07/07/25 Dinner
Cholesterol Lowering
At Your Request: Limited Participation
Cholesterol Lowering: Sodium, 2 Gram
Cholesterol Lowering
At Your Request: Limited Participation
Cholesterol Lowering: Sodium, 2 Gram
07/07/25 15:01
Sterile Water [Sterile Water For Injection] 10 ml .ROUTE .STK-MED ONE
07/07/25 15:26
Verapamil Injectable [Isoptin/Verapamil Injection] 5 mg .ROUTE .STK-MED ONE
07/07/25 15:27
Fentanyl Citrate/Pf [Sublimaze] 100 mcg .ROUTE .STK-MED ONE
Heparin 10,000 units .ROUTE .STK-MED ONE
Heparin 1000 Units/500 ml [Heparin] 1,000 units in 500 ml .ROUTE .STK-MED
Heparin Sodium,Porcine/Ns/Pf [Heparin 2000 Units/1000 ml] 2,000 unit in 1,000 ml .ROUTE .STK-MED
Midazolam HCl [Versed] 2 mg .ROUTE .STK-MED ONE
Nitroglycerin [Tridil] 1,500 mcg .ROUTE .STK-MED ONE
07/07/25 15:28
Lidocaine HCl/Pf [Xylocaine-Mpf 1% Vial] See Dose Instructions .ROUTE .STK-MED ONE
07/07/25 15:39
Verapamil Injectable [Isoptin/Verapamil Injection] 5 mg .ROUTE .STK-MED ONE
07/07/25 15:40
Heparin 1000 Units/500 ml [Heparin] 1,000 units in 500 ml .ROUTE .STK-MED
Heparin Sodium,Porcine/Ns/Pf [Heparin 2000 Units/1000 ml] 2,000 unit in 1,000 ml .ROUTE .STK-MED
Nitroglycerin [Tridil] 1,500 mcg .ROUTE .STK-MED ONE
07/07/25 15:41
Lidocaine HCl/Pf [Xylocaine-Mpf 1% Vial] 50 mg .ROUTE .STK-MED ONE
07/07/25 16:34
Admit/Transfer Patient As Directed
Co-Sign Provider:
Level of Care: Inpatient admission
Assign to:: IVU
Physician / Group: Hospitalist
Diagnosis: NSTEMI
Reason for Hospitalization: NSTEMI
Expected length of stay greater than two midnights?: Yes
ELOS- Estimated Length of Stay in days: 3
I certify the patient meets the requirements for IP care: Yes
PRN Pain Medication Management As Directed
May give lesser potent ordered pain med per pt: Yes
preference::
Protocol:: Medication orders for pain may be administered in a
manner that supports deferring to patient preference
when the pt is:
- Requesting an ordered lesser potent pain medication.
Least to most potent pain medications are defined
as: acetaminophen < NSAID < tramadol < opioids
(morphine, oxycodone, hydromorphone).
- Requesting a lesser dose of the same medication IF
ORDERED.
- Requesting a less intrusive route of administration
if both routes are prescribed by the provider (PO <
IV).
07/07/25 16:36
Code Status As Directed
Resuscitation Status: Full Code
07/07/25 16:38
Lidocaine HCl/Pf [Xylocaine-Mpf 1% Vial] 100 mg .ROUTE .STK-MED ONE
07/07/25 17:06
Lactic Acid Urgent
07/07/25 17:18
Electrocardiogram (*1) Urgent
Reason for Study: Other
Other Reason for Exam: s/p intervention
Comment: dca
CARDIAC REHAB CONSULT Routine
Co-Sign Provider:
Cardiac Rehab & Exercise Evaluation Referral
Type of Cardiac Rehab Referral: Outpatient
Diagnosis: NSTEMI
Date of Diagnosis/Surgery: 07/07/25
Referring Provider: Kami Shearer
[facility]ensive Cardiac Rehab Exercise Prescription
The above named person is capable of participating in an intensive cardiac rehab exercise therapy program
under the guidance of the [facility] cardiac rehab staff, outpatient registered dieticians and
supervision of a physician.
ICR Program Objectives:
Provide supervised exercise, cooking classes, nutritional counseling and healthy mind-set education to
improve the function/symptom free work capacity to an optimal level as well as control risk factors to
prevent the progression of heart disease. During the supervised exercise therapy session some or all of
the following may be included in the cardiac rehab session: ECG telemetry, BP, heart rate, rate of
perceived exertion, symptoms/tolerance, cholesterol testing and education. Exercise modalities may
include: treadmill, upright or recumbent bike, spin bike, rowing machine, elliptical, recumbent
elliptical, arm-bike machine, recumbent stepper and free weights.
Intensity:
All CR staff will use ACSM guidelines: Most patients will exercise in the following range: Heart Rate
[place] range of 40% to 80% & Oxygen Uptake reserve range 40-80% (VO2R). Peak heart rate and VO2 are
derived from the cardiac rehab submaximal graded exercise test at RPE of 13/14 out of 20. Initial
intensity range: RPE 11 to 14/20 and may expand to 11 to 16/20.
Duration & Frequency:
If appropriate the patient will be progressed up to 40 minutes of exercise therapy. Patients will be
instructed to come three times a week in cardiac rehab and at a home/other gym to achieve optimal
physical activity/exercies i.e. 4000-10,000 steps per day.
Education:
The patient will receive one-on-one education during their orientation, initial exercise evaluation, ITP
reassessments and discharge session. Each exercise session will also include an education class (30-40
minutes).
Acetaminophen [Tylenol] 650 mg PO Q4HPRN PRN
Activity As Directed
Activity Level: Bedrest
Comment: refer to hemostasis device used for bedrest duration, then ambulate ad brittney
Site Project Manager Procedure As Directed
Cardiac Cath Procedure: percutaneous coronary intervention
Femoral Artery Hemostasis Method As Directed
Procedure performed:: Percutaneous Coronary Int
Type of femoral hemostasis method used:: Internal Closure Device
Duration of bedrest (hours):: 4
Call provider if:: hematoma present after hemostasis achieved
Head of Bed-Restrictions As Directed
Comment: may elevate head of bed 30 degrees
Intake/ Output As Directed
Frequency: Per unit guidelines
Notify MD As Directed
Notify physician if: immediately for chest pain or bleeding from access site(s)
Site Checks As Directed
Check access site for bleeding/hematoma: Yes
Comment: on arrival, Q15min x4, Q30min x2, Q1 hr x2, Q2 hr x2, Q4 hr or per
protocol
Vascular Checks As Directed
Location: distal to access site - pulse check
Frequency: Other
Comment: on arrival, Q15min x4, Q30min x2, Q1 hr x2, Q2 hr x2, Q4 hr or per protocol
Vital Signs As Directed
Frequency: Other
Additional Instructions:: on arrival, Q15min x4, Q30min x2, Q1 hr x2, Q2 hr x2, then Q4 hr or per unit
protocol
07/07/25 17:30
0.9% Sodium Chloride 1000 ml [Nss] 1,000 ml IV PER PROTOCOL
Infusion rate in mL/kg/hr:: 1.5
Infusion rate in mL/hr:: 89
Duration of infusion (hours):: 5
07/07/25 18:26
Acetaminophen [Tylenol] 1,000 mg PO Q6H PRN MILD PAIN
Bisacodyl [Dulcolax] 10 mg RECTAL [id number] PRN
CLONAZepam [CLONAZepam ODT] 0.5 mg PO DAILYPRN PRN SEIZURES
Docusate W/Senna [Senokot-S] 1 tablet PO BIDPRN PRN
Heparin 21499 Units/250 ml 25,000 units in 250 ml IV PER PROTOCOL
Weight to be used for heparin protocol in kilograms (kg):: 59
Protocol:: Cardiac Tx/Acute Coronary
PTT Goal Range to be used:: PTT 73 to 111 seconds
Order type:: Initial
INITIAL Infusion Dose (UNITS/KG/hr) & then follow protocol:: 12 units/kg/hr
Infusion Dose in UNITS/hr & then follow protocol (UNITS/hr):: 700
INFUSION RATE in mL/hr & then follow protocol (mL/hr):: 7
PTT less than or equal to 64 seconds:: Increase rate by 200 units/hr (+ 2 mL/hr)
PTT 64.1 to 72.9 seconds:: Increase rate by 100 units/hr (+ 1 mL/hr)
PTT 73 to 111 seconds:: Target Range. No change in rate.
PTT 111.1 to 130.9 seconds:: Decrease rate by 100 units/hr (- 1 mL/hr)
PTT 131 to 199.9 seconds:: HOLD for 1 hr. Then decrease rate by 200 units/hr (- 2 mL/hr)
PTT greater than or equal to 200 seconds:: HOLD for 2 hrs & Notify Provider. Then decrease by 200 units/hr (-
2 mL/hr)
Lab follow-up:: Each change, PTT q6h until 2 consecutive are therapeutic. Then PTT
daily.
Polyethylene Glycol Powder [Miralax] 17 grams PO DAILYPRN PRN
Rosuvastatin Calcium [Crestor] 10 mg PO QPM
VANCOMYCIN Pharmacy to Dose [VANCOCIN Pharmacy to Dose] 1 each Pharmacy To Prepare [Call Pharmacy To Prepare] 0 ml IV PER PROTOCOL
07/07/25 18:26
CARDIOLOGY CONSULT Urgent
Consulting Provider: Kwaku Quigley
Was physician already notified: Yes
INFECTIOUS DISEASE CONSULT Routine
Consulting Provider: Avelina Kapadia
Was physician already notified: Yes
Heparin Protocol- PTT Orders As Directed
PTT per Heparin protocol: -Obtain CBC and baseline PTT - if not already collected.
-Obtain PTT 6 hours from start of infusion. Then, every 6 hours until 2 consecutive
PTT's are therapeutic. Then, PTT Daily.
-With each rate change, obtain PTT every 6 hours until 2 consecutive PTT's are
therapeutic. Then, PTT Daily.
Activity As Directed
Activity Level: Out of Bed-Early Mobility
Intake/ Output As Directed
Frequency: Per unit guidelines
Notify MD As Directed
Notify physician if: PTT is greater than or equal to 200.
Vital Signs As Directed
Frequency: Per unit guidelines
Weight As Directed
Frequency: Daily
07/07/25 19:48
Lactic Acid Q6H
Troponin I Q6H
07/07/25 20:00
CefTRIAXone [Rocephin] 2,000 mg IV Q24H
Levetiracetam [Keppra] 750 mg PO BID
07/07/25 22:00
Gabapentin [Neurontin] 600 mg PO HS
07/08/25 00:44
Lactic Acid Q6H
Troponin I Q6H
07/08/25 06:00
Electrocardiogram (*1) IN AM
Reason for Study: Other
Other Reason for Exam: s/p intervention
Comment: dca
07/08/25 06:10
Complete Blood Count/With Diff IN AM
PTT IN AM
Troponin I Q6H
07/08/25 08:00
Ezetimibe [Zetia] 10 mg PO DAILY
Ticagrelor [Brilinta] 90 mg PO BID
07/09/25 04:29
Complete Blood Count/No Diff Q2D
Comment: Notify MD if platelet count is <130,000 or decreases by 50% from baseline
07/11/25 06:00
Complete Blood Count/No Diff Q2D
Comment: Notify MD if platelet count is <130,000 or decreases by 50% from baseline
07/13/25 06:00
Complete Blood Count/No Diff Q2D
Comment: Notify MD if platelet count is <130,000 or decreases by 50% from baseline
07/15/25 06:00
Complete Blood Count/No Diff Q2D
Comment: Notify MD if platelet count is <130,000 or decreases by 50% from baseline
07/17/25 06:00
Complete Blood Count/No Diff Q2D
Comment: Notify MD if platelet count is <130,000 or decreases by 50% from baseline
07/19/25 06:00
Complete Blood Count/No Diff Q2D
Comment: Notify MD if platelet count is <130,000 or decreases by 50% from baseline
07/21/25 06:00
Complete Blood Count/No Diff Q2D
Comment: Notify MD if platelet count is <130,000 or decreases by 50% from baseline
07/23/25 06:00
Complete Blood Count/No Diff Q2D
Comment: Notify MD if platelet count is <130,000 or decreases by 50% from baseline
Abnormal Lab Results
07/07/25 07/07/25 07/07/25
12:07 12:36 14:34
WBC 13.2 H 10^3/uL
(4.8-10.8)
Hct 36.7 L %
(37.0-47.0)
Abs Immat Gran (auto) 0.1 H 10^3/uL
(0-0.05)
Absolute Neuts (auto) 11.1 H 10^3/uL
(1.4-6.5)
Absolute Lymphs (auto) 1.1 L 10^3/uL
(1.2-3.4)
Absolute Monos (auto) 0.9 H 10^3/uL
(0.1-0.6)
Neutrophils % 84.0 H %
(42.2-75.2)
Lymphocytes % 8.6 L %
(20.5-51.1)
BUN 26 H mg/dl
(7-17)
Glucose 146 H mg/dl
(70-99)
Lactic Acid 2.7 H mmol/L
(0.7-2.0)
AST 102 H U/L
(14-36)
Troponin I 9.400 H* ng/ml 16.100 H* D ng/ml
Urine Ketones
Ur Occult Blood Reflex
Urine RBC
Urine WBC (Reflex)
Urine Bacteria (Reflex)
Urine Albumin (Reflex)
POC ACT Low Range
07/07/25 07/07/25 07/07/25
14:57 16:56 17:05
WBC
Hct
Abs Immat Gran (auto)
Absolute Neuts (auto)
Absolute Lymphs (auto)
Absolute Monos (auto)
Neutrophils %
Lymphocytes %
BUN
Glucose
Lactic Acid
AST
Troponin I
Urine Ketones 1+ A
(Negative)
Ur Occult Blood Reflex 4+ A
(Negative)
Urine RBC 21-25 A /HPF
(0-2)
Urine WBC (Reflex) 11-15 A /HPF
(0-5)
Urine Bacteria (Reflex) Few A
(Negative)
Urine Albumin (Reflex) 2+ A
(Neg - Trace)
POC ACT Low Range 216 H Seconds 276 H Seconds
(116-155) (116-155)
07/07/25
17:20
WBC
Hct
Abs Immat Gran (auto)
Absolute Neuts (auto)
Absolute Lymphs (auto)
Absolute Monos (auto)
Neutrophils %
Lymphocytes %
BUN
Glucose
Lactic Acid
AST
Troponin I
Urine Ketones
Ur Occult Blood Reflex
Urine RBC
Urine WBC (Reflex)
Urine Bacteria (Reflex)
Urine Albumin (Reflex)
POC ACT Low Range 295 H Seconds
(116-155)
07/07/25 12:07
07/07/25 12:07
Vital Signs
Initial and Last Documented VS:
Initial Vital Signs
Temp Pulse Resp BP Pulse Ox
36.9 C 58 18 106/58 99
07/07/25 11:56 07/07/25 11:56 07/07/25 11:56 07/07/25 11:56 07/07/25 11:56
Last Documented Vital Signs
Temp Pulse Resp BP Pulse Ox
37.2 C 87 18 97/55 98
07/10/25 12:16 07/10/25 13:00 07/10/25 12:16 07/10/25 12:18 07/10/25 12:16
<Julia Gonzalez PA-C - Last Filed: 07/10/25 15:41>
MDM/Problems Addressed
Differential Diagnosis Includes:
see MDM
MDM/Problems Addressed:
Note:
CHIEF COMPLAINT(S)
Persistent focal aware seizures, fever, and chest heaviness.
HISTORY OF PRESENT ILLNESS
The patient 65 y/o F with a history of a meningioma brain tumor, which was surgically resected twice within the past decade, most recently in October of this year. Following the surgery, the patient has experienced focal aware seizures, typically
occurring a couple of times per month, which manifest as paralysis on the left side due to focal seizure from the right-sided meningioma.
over the past monh pt has been having more of these seizures.
Recently, she developed a fever of 101-102�F starting yesterday, and despite administration of Tylenol, the fever persisted. She vomited this morning after attempting to consume tea and toast, and her left-sided paralysis appears to be more
prolonged or occurring as multiple episodes instead of resolving in the usual 20 minutes. The patient tried a rescue medication, clonazepam, for the first time last night, with unknown effectiveness.
She has a past surgical history of breast cancer treated with a lumpectomy last year. The patient is scheduled for revision surgery due to incomplete healing of a cranial wound, which has led to some exposure of hardware.
She reports having undergone recent neuroimaging, including MRIs and a CT scan, with clean results apart from the unhealed wound.
PAST MEDICAL AND SURIGICAL HISTORY
- Meningioma brain tumor resection twice in the past decade
- Breast cancer with lumpectomy last year
- Gamma Knife radiation for meningioma treatment
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
The patient received her flu shot but has not had recent COVID-19 vaccination.
MEDICATIONS
- Keppra: taken one tablet in the morning, but the effectiveness today is uncertain due to vomiting.
- Clonazepam: used for seizures as a rescue medication.
PHYSICAL EXAM
- Vital signs reviewed.
GENERAL: Alert , in no apparent distress, generalized discomfort
head: open incision top of scalp, no leakage currently
EYE: pupils equal and reactive
NECK: Supple
ENT: o/p clr, dry mouth
CARDIAC: Regular rate and rhythm .
LUNGS: Clear breath sounds bilaterally, no acute respiratory distress, no wheezes/rales/rhonchi
ABDOMEN: Soft, without focal tenderness, no r/g, no cvat, normal bowel sounds
NEUROLOGICAL: Alert and oriented, LUE weakness; RUE normal, RLE normal, mild L facial fold flattening and L eyebrow weakness;
SKIN: Warm and dry, skin intact.
MUSCULOSKELETAL: No edema, well perfused. neg zaira's sign
PSYCH: Normal and appropriate interaction.
PROBLEM LIST
Acute:
- Fever
- Persistent seizures
- Chest heaviness
Chronic:
- Meningioma
- Seizure disorder
- Breast cancer history
PLAN
- Repeat EKG as previous results indicated possible abnormal findings, recommended by cardiology.
- Continue to monitor neurological status and seizure activity.
- Evaluate fever with consideration of potential infectious causes due to exposed cranial hardware.
- Prepare for revision surgery on the cranial wound as scheduled.
DIFFERENTIAL DIAGNOSIS
The Differential Diagnosis includes, in no particular order and is not limited to:
1. Infection related to cranial hardware
2. Recurrent meningioma
3. Seizure exacerbation
4. Medication-related side effects
5. Cardiac abnormalities
6. Myocardial infarction
7. Stroke
8. Temporal lobe epilepsy
9. Viral infection
10. Intracranial hemorrhage
65 y/o F
h/o cranciotomy for meningioma, [facility] october 2024 [facility]
here with fever, nausea/vomiting, lethargy, worse LUE weakness than normal weakness
has open scalp crani inicision that neeeds revision next week
but mild headache, no neck stiffness
not acutely altered
has h/o focal LUE seizures which feel more freuqnelty happening and worse today
she also developed chest pressure last night that has been constant today as well 11/12
no pleurutic pain, sob, cough
here afebrlie
mildly weak
her LUE weakness is noticeable
no abd tendenrses
lungs clear
no meningismus
ekg in the WR was concerning to cards who read it and noticed st elevation III, avF
we repeated to find the same pattern of mild ST elevation and T wave inv I, AVL
this is new for pt
her trop was 9
spoke with kwasi supervisor cell operation who recommended that we speak with NSG regarding heparinization; yuri did not feelt his was STEMI
i spoke with dr. pantoja from [place] who said ok to anticoagluate, no heparin bolus
cards in with patient
ed attending saw pt as well
she has soft bp, and inferior changes, holding nitro
morphien for pain
also note leukotcytosis and lactic, so josie straight cath and give IV abx
Note that her head CT read postoperative changes of right frontoparietal craniotomy with a 6.6 mm hypodense collection which could be chronic collection versus postoperative infection. Patient is awake and alert. This finding was not reviewed with
the neurosurgeon on-call as the CT scan was not resulted. Patient says she has a chronic problem with this incision and was scheduled for wound revision next week. Initially it seemed as if the hospitalist and the mixing engineer would prefer to
transfer the patient but ultimately patient was able to stay for her cath which would be probably done more timely here than if we transferred her. At this point it seems like this is the more pressing concern for ACS. I will empirically give her
antibiotics. She may need to be transferred for neurosurgery consultation in the future
<DO America Gupta Filed: 07/09/25 15:17>
*Pulse Oximetry
SaO2: 99
Oxygen Mode of Delivery: Room air
Patient hypoxic: no
*Critical Care Note
Total Time (30-74mins, 75-104mins- exclusive of procedures): 47
comment:
The high probability of a clinically significant, sudden or life threatening deterioration of the cardiac system(s), ACS, required my full and direct attention, intervention and personal management. The aggregate critical care time was 47 minutes.
This time is in addition to time spent performing reported procedures but includes the following:
[x] Data Review and interpretation
[x] Patient assessment and monitoring of vital signs
[x] Documentation
[x] Medication orders and management
ED Attending Note
<DO America Gupta Filed: 07/09/25 15:17>
ED Attending Note
Patient seen and examined by attending physician: Yes
I performed the substantive portion of visit, reviewed & personally made and approve the management plan that is documented in note by myself or LAY.: Yes
I performed a history and physical exam of patient and discussed management with resident, I reviewed resident's note and agree with documented findings and plan of care.: Yes
ED Attending Note:
65-year-old female with complex past medical history including meningioma status post resection (however inappropriate healing, scheduled for revision surgery next week with [facility]), history of breast cancer status post lumpectomy,
history of focal seizures from right sided meningioma (to L-UE) presenting to the emergency department for multiple issues. Patient reports last evening she started to have severe chest pressure with nausea. at bedside also notes fever of
102. She has been having chronic issues with the meningioma with leakage of CSF, however has been ongoing issue since October, scheduled for revision next week. and patient deny any change to the drainage. No report of any cough. Denying
any abdominal pain, some upper abdominal discomfort. Denies any known history of cardiac events or issues. Vital signs on arrival are normal.
Patient initially evaluated in triage with EKG obtained. EKG abnormal with some slight ST elevation inferiorly with T wave inversions laterally. Without STEMI criteria, however abnormal, particularly in a patient with active chest pain.
Examination room EKG repeated. Dyspnea interval change. At this time however, patient is continued chest pain, now 4 out of 10, concern for acute coronary syndrome. Lungs are clear to auscultation. On examination of the scalp, scabbing to the
right superior portion of the scalp. No active drainage. Currently afebrile, however family does note antipyretics prior to arrival. Unclear etiology of the fever. During evaluation, troponin came back elevated at 9. Cardiology subsequently
consulted, agree that it is non-STEMI criteria, suspected NSTEMI. Will come to evaluate, recommending neurosurgery input regarding heparin.
14:00 -physician procurement assistant did discuss case with patient's neurosurgeon, cleared for heparin and dual antiplatelet therapy. Cardiology at bedside. Plan for urgent echo and plan for admission for NSTEMI. Lactate noted to be elevated, so infection
remains a consideration. Starting fluids. Culture sent. Pending urinalysis
-
Portions of this chart may have been created with voice recognition software.� Occasional wrong word or��sound alike� substitutions may have occurred due to the inherent limitations of voice recognition software.
<Serafin Dixon, DO - Last Filed: 07/07/25 16:47>
ED Attending Note
ED Attending Note:
I spoke to neurosurgeon at [facility] given the CT findings from today of the brain. Neurosurgeon is not concerned and doubt infectious etiology. Recommends patient stay at [facility] for cath and no clear indication for transfer at this time depending.
Discharge Plan
Departure
Patient Disposition: Admit
Date of Disposition: 07/07/25
Time of Disposition: 14:10
Admit to: IVU
Presentation/result/management discussed w/ accepting MD/DO: Hospitalist
Patient with high blood pressure during this ER visit?: No
Condition: Fair
Discharge Problem:
Non-ST elevation OR (NSTEMI), SIRS (systemic inflammatory response syndrome)
Interventions
Interventions:
*General Assessment Last Done: 07/07/25 11:56
*Neglect/Abuse Screening Last Done: 07/07/25 16:44
*ED Influenza Vaccine History Last Done: 07/07/25 11:56
*Nursing Disposition Last Done: 07/07/25 16:44
ED- Cardiac Assessment Last Done: 07/07/25 15:00
Discharge Date and Time
Discharge Date/Time: 07/07/25 16:44
--- NOTE | 2025-07-07 13:59 | CON.CAR ---
Addendum entered and electronically signed by Kwaku Quigley MD 07/07/25 15:04:
I saw and examined the patient.
The DIRECTOR HUMAN SERVICES or PA's note was reviewed and I agree with the note.
Comment: General: Well developed, well nourished in NAD.
Neck: Supple, no JVD, HJR, carotids +2 B/L, no bruits bilaterally.
Heart: Non displaced PMI, RRR, no murmurs, No S3, S4, no rubs.
Lungs: Clear to auscultation bilaterally, no wheeze, rhonchi, rubs bilaterally,
normal expiratory phase.
Extremities: No clubbing, cyanosis or edema bilaterally.
Neuro: Grossly nonfocal, awake, alert and oriented x3.
Deanna has a history of meningioma with craniotomy and resection in October 2024 at [facility], focal seizures, breast cancer status postlumpectomy. She presents for evaluation of fever, nausea, vomiting. Also had chest discomfort in center of chest and
right side of chest. Troponin was 9 and cardiology consulted. She feels her pain has improved but she continues with chest pain.
Echocardiogram at the bedside was normal.
Discussed in detail with ER staff, , [facility] neurosurgery. They are okay with heparin and okay with boluses. We initially discussed possibly transferring to [facility] but elected to keep her here for now. Neurosurgery is willing to take her if
needed. Will plan on cardiac catheterization if continues with chest discomfort. Will follow troponins. Neurosurgery felt there were no contraindications to getting blood thinners at the current time. Of note she has elective procedure planned
for a poorly healing craniotomy wound that may have to be delayed. She will be admitted to the hospital service with nausea vomiting and fever as well.
Original Note:
Consultation
Consultation Request
Date/Time Consultation Requested: 07/07/25
Date/Time Consultation Performed: 07/07/25
Requesting Provider: Dr. Johnson
Performing Provider: Dr. Qiugley
Reason for Consultation: Chest pain, elevated Troponin
Medical History
-
History of Present Illness:
Patient came to the ER today with chest pain and cardiology consulted for elevated Troponin. Patient's helps with bulk of HPI. Patient had initial right frontal craniotomy for meningioma in 2013 and had a recurrent craniotomy and resection
10/2024. Patient's wound didn't heal well superficially and patient has had continued drainage of CSF so she is scheduled to have incision revision procedure at [facility] 07/13/25. Also since her last craniotomy patient developed focal seizures with
symptoms of paresthesias and paralysis of her LUE and sometimes face. Patient follows with a neurologist at [facility] and is now on Keppra. Patient started with one of her focal seizures yesterday afternoon, but she also had symptoms of central and right
sided chest pain. Symptoms lasted for hours and patient's noted that she was lethargic and not acting herself. This morning patient started with nausea and vomiting and so her called their care team at [facility], but didn't feel
comfortable driving her to [facility] ER so they came here. Initial ECG was concerning for inferior infarct. Initial Troponin 9.
PMH:
FH premature CAD with h/o calcium score of 66 05/31/23
Recurrent meningioma
s/p right frontal craniotomy and XRT at [facility] 2013
s/p repeat right frontal craniotomy at [facility] 10/2024
Focal seizures
following with neurology at [facility], symptoms are left arm paralysis and paresthesias
h/o right breast lumpectomy and XRT
Past Medical History
Past Medical History: Other (in HPI)
Past Surgical History: Brain (meningioma resection 2013 and 10/2024) and Gynecological (right lumpectomy 2023)
Social History
Tobacco: Non-Smoker
Alcohol: None
Drug: None
Personal:
Living: With Family
Family History
Family History: CAD (brother with PCI) and Other (sister with frontal lobe dementia)
Allergies / Home Medications
Allergy/AdvReac Type Severity Reaction Status Date / Time
nitrofurantoin (From Allergy Severe Shortness Verified 07/07/25 12:01
Macrobid) of Breath
nitrofurantoin Allergy Severe Shortness Verified 07/07/25 12:01
macrocrystalline (From of Breath
Macrobid)
Latex, Natural Rubber Allergy Mild Rash Verified 07/07/25 12:01
ampicillin Allergy Rash Verified 07/07/25 12:01
erythromycin base Allergy RASH,ITCHIN Verified 07/07/25 12:01
(Erythromycin Base) G
Penicillins Allergy RASH,ITCHIN Verified 07/07/25 12:01
G
Sulfa (Sulfonamide Allergy ITCHING,JEFERSON Verified 07/07/25 12:01
Antibiotics) (Sulfa H
(Sulfonamides))
�Medication �Instructions �Recorded �Confirmed �Type
rosuvastatin 10 mg tablet 10 mg PO QPM 10/20/18 07/07/25 History
ezetimibe 10 mg tablet (Zetia) 10 mg PO DAILY 06/16/24 07/07/25 History
acetaminophen 500 mg tablet 1,000 mg PO Q6H PRN MILD PAIN 07/07/25 07/07/25 History
(Tylenol Extra Strength)
clonazepam 0.5 mg disintegrating 0.5 mg PO DAILYPRN PRN SEIZURES 07/07/25 07/07/25 History
tablet
gabapentin 300 mg capsule 600 mg PO HS 07/07/25 07/07/25 History
levetiracetam 750 mg tablet 750 mg PO BID Seizures 07/07/25 07/07/25 History
Review of Systems
-
History Source: Patient and Family (bulk of HPI obtained with help of sitting bedside)
All other systems: Negative unless noted
Physical Exam
Vital Signs
Temp Pulse Resp BP Pulse Ox
98.5 F 58 18 106/58 99
07/07/25 11:56 07/07/25 11:56 07/07/25 11:56 07/07/25 11:56 07/07/25 13:25
GEN: NAD. AAOx3
HEENT: EOMI, MMM
LUNGS: RA. Clear anterolaterally without wheeze
CV: SR on tele. Reg, S1/S2, no murmur
ABD: ND
EXT: No edema B/L LE
NEURO: Gross non-focal
SKIN: No rash
Lab Results
07/07/25 12:07
07/07/25 12:07
Troponin I 9.400 ng/ml H* 07/07/25 12:07
Impression / Plan
-
PCP: Dr. Benítez
Card: Dr. Leslie Anglin
Neurosurgeon: Dr. Hussein Biggs
Impression:
Admitted with chest pain and elevated Troponin
Chest pain, possible ACS
Elevated Troponin
FH premature CAD with h/o calcium score of 66 05/31/23
Recurrent meningioma
s/p right frontal craniotomy and XRT at [facility] 2013
s/p repeat right frontal craniotomy at [facility] 10/2024
Focal seizures
following with neurology at [facility], symptoms are left arm paralysis and paresthesias
h/o right breast lumpectomy and XRT
Echo 08/02/23: EF 55-60%, no WMA, mild MR
Echo 07/07/25: Prelim report, preserved EF without WMA
Plan:
-Patient came to the ER today with chest pain and cardiology consulted for elevated Troponin. Patient's helps with bulk of HPI. Patient had initial right frontal craniotomy for meningioma in 2013 and had a recurrent craniotomy and resection
10/2024. Patient's wound didn't heal well superficially and patient has had continued drainage of CSF so she is scheduled to have incision revision procedure at [facility] 07/13/25. Also since her last craniotomy patient developed focal seizures with
symptoms of paresthesias and paralysis of her LUE and sometimes face. Patient follows with a neurologist at [facility] and is now on Keppra. Patient started with one of her focal seizures yesterday afternoon, but she also had symptoms of central and right
sided chest pain. Symptoms lasted for hours and patient's noted that she was lethargic and not acting herself. This morning patient started with nausea and vomiting and so her called their care team at [facility], but didn't feel
comfortable driving her to [facility] ER so they came here. Initial ECG was concerning for inferior infarct. Initial Troponin 9.
-ECG with inferior ST changes and possible old inferior infarct
-Initial Troponin 9. Check another Troponin at 1500.
-Patient with ongoing pain. ER called and spoke with patient's neurosurgeon and they gave permission for patient to receive heparin without bolus.
-Case reviewed with interventional cardiology and informed that patient will need clearance to receive heparin boluses for cardiac cath, I called and talked with Dr. Biggs and he feels that patient is 9 months out from craniotomy and is low risk
at this point so that benefits of heparin outweigh risks and patient can have boluses if needed for cath. Patient can also receive DAPT.
-No BB given due to hypotension.
-Check urgent echo, prelim noted above
-Check CVE, cont Crestor and Zetia.
--- NOTE | 2025-07-07 14:38 | HPS.HSE ---
Addendum entered and electronically signed by Rosanna Winter MD 07/07/25 18:58:
This is an addendum to the H&P written by Miranda Kim on 07/07/25. �Patient seen examined dependently with resident.
65-year-old female past medical history of meningioma status postresection 10 years ago and October 2024 done at [facility], chronic weakness of left side/facial droop, history of focal aware seizures every month, spinal stenosis, diverticulosis, breast
cancer, osteoporosis, hyperlipidemia, presenting with fever of 102, nausea vomiting, chest pressure mild headache.
Yesterday she had a focal aware seizure and gets numbness in her left upper extremity with worsening weakness, left lower extremity resolving within 20 minutes usually but lasted longer yesterday. �Also weakness in the legs.
Complaining of neck stiffness now.�
She is scheduled for craniotomy repair next week.
Vital signs unremarkable.
Labs show leukocytosis of 13. �Lactic acid 2.7. �Troponin of 9.4. �EKG shows sinus bradycardia heart rate 58, nonspecific T wave inversions in leads V4, V5. �Second EKG shows sinus bradycardia with premature supraventricular complexes. �COVID and
influenza negative. �CT head shows postoperative changes of right frontoparietal craniotomy. �There is underlying 6.6 mm predominantly hyperdense extra-axial collection with mild linear hyperdensity medially. �No mass effect. �This may represent a
chronic postoperative collection with underlying dural thickening infection cannot be excluded. �CT chest unremarkable.
Echo today shows moderate tricuspid regurgitation.
Urinalysis shows 11-15 WBC.
Patient with NSTEMI. �Aspirin given. �Heparin drip. �Check A1c and lipid panel. �Trend troponins. �Check echocardiogram. �Cardiology consulted. �Patient taken to [facility] today.
Patient with sepsis unclear etiology. �Possible source of infection could be�fluid collection from meningioma resection although emergency room spoke with neurosurgery at [facility] and they state that finding is stable and patient does not require
transfer for this indication. �Possible meningitis. �Check blood cultures. �IV fluids. �Vancomycin/ceftriaxone.� ID consulted and check lactate.�
Discussed MRI and LP with her but they are not interested in pursuing this at this time.�
Original Note:
Family Physician
-
Family Physician: Elgin Benítez
Chief Complaint
-
Headache, vomiting
History of Present Illness
65-year-old female with recurrent meningioma s/p recent resection in October 2024, first resection was 10 years ago, focal aware seizures, hyperlipidemia presents with headache, vomiting, fever. History obtained from patient and her . Patient
has been noted in the past 24 hours patient has progressive decline she started to have a headache yesterday and had an episode of vomiting. She started to have focal aware seizures which developed after second resection of meningioma. She usually
has these episodes/seizures for about 20 minutes but yesterday this lasted for more than 20 minutes. Patient was extremely weak in her bilateral lower extremities and was not able to stand on her own. Patient has been also noted that she was
lethargic and not acting herself. This morning patient started to have nausea and vomiting and right-sided chest pain. Pain was pressure like and non radiating. and her called care team at [facility] but did not feel comfortable driving her at
[facility] ER so they came to [facility] ED.
Medical History
Past Medical History
Past Medical History: Reports Other (Meningioma brain tumor resection twice in the past decade - Breast cancer with lumpectomy last year - Gamma Knife radiation for meningioma treatment)
Past Surgical History: Reports Other (Meningioma resection 10/2024)
Social History
Tobacco: Non-smoker
Alcohol: None
Drug: None
Personal:
Living: With Family
Family History
Family History: Not pertinent
Allergies / Home Medications
Allergies reflects when Allergies were last updated in [facility].
Home Medications with original date entered in [facility]
Allergy/Medication List:
Allergies
Allergy/AdvReac Type Severity Reaction Status Date / Time
nitrofurantoin (From Allergy Severe Shortness Verified 07/07/25 12:01
Macrobid) of Breath
nitrofurantoin Allergy Severe Shortness Verified 07/07/25 12:01
macrocrystalline (From of Breath
Macrobid)
Latex, Natural Rubber Allergy Mild Rash Verified 07/07/25 12:01
ampicillin Allergy Rash Verified 07/07/25 12:01
erythromycin base Allergy RASH,ITCHIN Verified 07/07/25 12:01
(Erythromycin Base) G
Penicillins Allergy RASH,ITCHIN Verified 07/07/25 12:01
G
Sulfa (Sulfonamide Allergy ITCHING,JEFERSON Verified 07/07/25 12:01
Antibiotics) (Sulfa H
(Sulfonamides))
Home Medications
rosuvastatin 10 mg tablet 10 mg PO QPM 10/20/18
ezetimibe 10 mg tablet (Zetia) 10 mg PO DAILY 06/16/24
acetaminophen 500 mg tablet (Tylenol Extra Strength) 1,000 mg PO Q6H PRN MILD PAIN 07/07/25
clonazepam 0.5 mg disintegrating tablet 0.5 mg PO DAILYPRN PRN SEIZURES 07/07/25
gabapentin 300 mg capsule 600 mg PO HS 07/07/25
levetiracetam 750 mg tablet 750 mg PO BID Seizures 07/07/25
Review of Systems
-
History Source: Patient
A 12 point ROS was completed and negative except as noted: Yes
Physical Exam
Vital Signs
Vital Signs
Temp Pulse Resp BP Pulse Ox
98.5 F 58 18 106/58 99
07/07/25 11:56 07/07/25 11:56 07/07/25 11:56 07/07/25 11:56 07/07/25 13:25
Physical Exam
General: Conversant and Appears Chronically Ill
HEENT: NormoCephalic, Anicteric and Other (Head/scalp: open incision top of scalp, no leakage currently)
Respiratory: Clear
Cardiac: S1/S2 and Regular Rhythm
GI: Soft, Non Tender and Non Distended
Musculoskeletal: No Edema
Neuro: AO x 3 and Other (Chronic left upper extremity and lower extremity motor deficit, 2/5 motor strength, weak actuarial mathematician strength left , no sensory deficits, chronic left facial droop mild.)
Hematologic/Lymphatic: No Lymphadenopathy
Psych: Calm
Laboratory Results
-
07/07/25 12:07
07/07/25 12:07
Laboratory Results
Lactic Acid 2.7 mmol/L (0.7-2.0) H 07/07/25 12:36
Total Bilirubin 0.8 mg/dl (0.2-1.3) 07/07/25 12:07
AST 102 U/L (14-36) H 07/07/25 12:07
ALT 29 U/L (0-35) 07/07/25 12:07
Alkaline Phosphatase 77 U/L (38-126) 07/07/25 12:07
Troponin I 9.400 ng/ml H* 07/07/25 12:07
Lipase 96 U/L (23-300) 07/07/25 12:07
Data Reviewed
-
CT Scan: Report Reviewed by me and Discussed with Physician
Medical Tests (Nuc Med, Echo, EKG etc): Report Reviewed by me and Discussed with Physician
Lab Data: Labs Reviewed by me and Discussed with Physician
Impression/Plan
-
IMPRESSION:
Chest pain, nausea, vomiting
Sepsis with unclear source.
Lactic acidosis
History of recurrent meningioma s/p meningioma resection in October 2024
History of focal aware seizures
Hyperlipidemia
Anxiety
PLAN:
Chest pain/nausea/vomiting
Suspect NSTEMI vs stable angina
EKG no acute changes, no ST elevation or depression
Elevated troponin. Initial troponin 9, second troponin at 3 pm is 16
Patient taken to Elevator Worker
Chest CT negative for PE
IV heparin, aspirin, Plavix
Soft BP, hold beta-heidi
Check echocardiogram
Continue Crestor and Zetia
Sepsis with Unclear source
Lactic acidosis. Afebrile. Leukocytosis 13,200
Came to hospital with GAVIRIA, nausea, vomiting. No fever, chills, neck stiffness or acute focal deficit.
Recent craniotomy in October 2024 for recurrent meningioma. Previous craniotomy 10 years ago.
Questionable for meningitis vs encephalitis
Consult ID for further evaluation
Start IV ceftriaxone and vancomycin
Trend lactic acid.
Await blood culture and urine culture results
Monitor WBC and temperature curve
History of recurrent meningioma
Initial resection 10 years ago
second resection in October 2024
History of focal aware seizure
This started after second craniotomy
Chronic, no acute focal deficit
Continue Keppra
Hyperlipidemia
Continue Zetia and Crestor
Anxiety
Continue home dose clonazepam
Full code
IV heparin
Cholesterol-lowering diet
[2025-07-07] MEDS: HEPARIN 25000 UNITS/250 ML IV (14:40)
[2025-07-07 14:55] LABS: APTT 28.2 Sec (23.4-35.0)
[2025-07-07] MEDS: MAXIPIME 1000 MG IV (15:02)
[2025-07-07 15:18] LABS: Urine Character Slightly Cloudy (Clear)
[2025-07-07] MEDS: VANCOCIN 530 MG IV (15:30)
[2025-07-07 15:44] LABS: Troponin I 16.100 ng/ml
[2025-07-07 16:19] LABS: Urine Red Blood Cell 21-25 /HPF (0-2)
[2025-07-07 16:57] LABS: ACT-LR - POC 137 Seconds (116-155)
[2025-07-07 17:12] LABS: ACT-LR - POC 216 Seconds (116-155)
[2025-07-07 17:36] LABS: ACT-LR - POC 295 Seconds (116-155)
--- NOTE | 2025-07-07 18:05 | ITS.CL.CATH ---
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
Cardiac Catheterization
Procedure Report:
LEFT AND RIGHT HEART CATHETERIZATION
Date of Procedure: July 07, 2025
Referring: Kwaku Quigley MD
PROCEDURES:
1. Left heart catheterization, coronary angiogram.
2. Moderate sedation.
3. Right heart catheterization.
4. Successful percutaneous coronary artery intervention of 100% proximally occluded RCA (Type C lesion, LIZET 0 flow) with 1 IVUS guided 3.0 x 34 mm Medtronic Yusuf frontier drug-eluting stent, postdilated using a 3.0 mm NC balloon at high pressures
with an excellent angiographic result.
5. Intravascular Ultrasound (IVUS)
INDICATION: Late presenting inferior PA
ACCESS: Right radial artery access was attempted but we could not advance the wire so this was aborted. Right common femoral arterial access was obtained using a 6 Colombian sheath and a micropuncture kit under ultrasound guidance. Right common
femoral vein, 6 Colombian sheath, under ultrasound guidance using a micropuncture kit.
HEMODYNAMICS : (mmHg)
RA (m) : 16
RV (s/d,m) : 33/12, 21
PA (s/d, m) : 32/19, 24
PCWP (m) : 16
PA saturation: 70.4% on room air
AO saturation: 97.6% on room air
Cardiac Output : 4.51 L/min
Cardiac Index : 2.86 L/min/m-2
Systemic vascular resistance: 1508 dsc^(-5)
Pulmonary vascular resistance: 1.78 davila unit
AO (s/d) : 142/70
LVEDP : 20
No significant gradient across the aortic valve to suggest aortic stenosis.
CORONARY FINDINGS
Dominance: Right
Left Main Trunk (LMT): Large caliber vessel that gives rise to the LAD and LCx branches and is free of angiographic disease.
Left Anterior Descending Artery (LAD): Large caliber vessel that gives off 2 major diagonal branches as it courses along the anterior inter-ventricular groove before wrapping around the cardiac apex. Mid LAD just distal to the takeoff of D2 has a
focal 80% stenosis just distal to the takeoff of D2. D2 is a small to medium caliber vessel. Ostial D2 has a 70% stenosis and proximal D2 has 60 to 70% stenosis.
Left Circumflex Artery (LCx): Large caliber vessel that gives off 2 major obtuse marginal (OM) branches as it courses along the atrio-ventricular (AV) groove. Ostial left circumflex has a 20% stenosis. There is mild diffuse atherosclerotic plaque.
Right Coronary Artery (RCA): Large caliber dominant vessel that gives rise to the posterior descending artery (RPDA) and postero-lateral ventricular (RPLV) branches distally. The proximal RCA is 100% occluded with LIZET 0.
CORONARY INTERVENTION: Additional heparin was given to maintain a therapeutic ACT throughout the case. Given the EKG findings with ongoing chest pain and rising troponins, decision was made to proceed with percutaneous coronary artery intervention
of 100% proximal RCA occlusion with LIZET 0 flow. A 6 Colombian JR4 guide catheter was utilized to selectively engaged the right coronary artery. A 190 cm 0.014 run-through wire was carefully navigated across the proximal occlusion into the distal
vessel. The lesion was predilated using a 2.5 x 12 mm semi-compliant balloon with full expansion. The lesion was subsequently stented using a 3.0 x 34 mm Medtronic Yusuf frontier drug-eluting stent and postdilated using IVUS guidance with a 3.0 x
20 mm NC balloon at 16 kan distally and 20 kan proximally with an excellent angiographic and IVUS based result. The patient tolerated the procedure well and was loaded with 180 mg of Brilinta at the end of the case. No acute complications
SEDATION: 57 minutes of procedural sedation was utilized. IV Midazolam and IV Fentanyl were administered. An independent medical center representative was present to assist with and help manage the patient's level of consciousness and physiologic status.
Closure Device: 6Fr angioseal over RCFA with successful hemostasis. Manual pressure was held over the right common femoral venous access site with successful hemostasis.
CONCLUSIONS
1. Successful percutaneous coronary artery intervention of 100% proximally occluded RCA (Type C lesion, LIZET 0 flow) with 1 IVUS guided 3.0 x 34 mm Medtronic [place] frontier drug-eluting stent, postdilated using a 3.0 mm NC balloon at high pressures
with an excellent angiographic result.
RECOMMENDATIONS
1. Wean radial band per protocol. Monitor right hand perfusion and for bleeding from the radial site following removal of the vascular-band following trans-radial access.
2. Continue aggressive medical therapy and risk factor modification for secondary CAD prevention.
3. Continue ASA 81 mg daily for life.
4. Continue Brilinta for at least 12 months of uninterrupted dual anti-platelet therapy given drug-eluting stent (JASON) implantation to mitigate the risk of stent thrombosis. This is not to be stopped for any reason without the guidance of a
coordinator of online programs.
5. Hydrate with normal saline to mitigate the risk of contrast-induced acute kidney injury.
6. Referral for outpatient cardiac rehab.
7.Plan for staged LAD PCI as an outpatient after ensuring that patient tolerates dual antiplatelet therapy and after discussion with neurosurgery.
Kami Shearer MD, [facility], [facility]
Copy to: Kwaku Quigley MD and Leslie Anglin MD
[2025-07-07] MEDS: KEPPRA 750 MG PO (19:22)
[2025-07-07] MEDS: TYLENOL 650 MG PO (20:44)
[2025-07-07] MEDS: CRESTOR 10 MG PO (20:44)
[2025-07-07 20:45] LABS: Troponin I 90.900 ng/ml
[2025-07-07] MEDS: ROCEPHIN 2000 MG IV (20:45)
[2025-07-07] MEDS: NEURONTIN 600 MG PO (20:45)
[2025-07-07] MEDS: STERILE WATER FOR INJECTION 20 ML IV (20:45)
--- NOTE | 2025-07-07 22:03 | PHA.VAN.IN ---
Assessment
- Assessment
Renal Function: Appears similar to baseline
Concomitant Antimicrobials: CEFTRIAXONE
AUC Dosing Plan
- Dosing Variables
Dosing Weight (kg): 59
Dosing CrCl (ml/min): 54
Vd coefficient (L/kg): 0.7
- Empiric Dosing
Initial / Loading Dose: VANCOMYCIN 1500 MG IV ~ 1530
Maintenance Regimen: VANCOMYCIN 1000 MG IV Q24H
Estimated AUC (mcg*h/mL): 504
Estimated Peak (mcg*h/mL): 34.9
Estimated Trough (mcg/ml): 11.3
Estimated Half Life (H): 14
- Monitoring
No levels ordered at this time: Please consider levels in next few days.
Pharmacokinetics Vancomycin I
- -
Patient Age: 65
Patient Sex: Female
Vancomycin Day #: 1
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
Requesting Provider: Dr Edinson Jean (Resident)
Pertinent Antimicrobial Allergies:
Pcn, sulfa, erythromycin w. rash and itching. Ampicillin w. rash and Nitrofurantoin w. shortness of breath.
Height / Weight:
Height 5 ft 1 in
Actual Weight 59 kg
Pertinent Past Medical History: Sepsis with unclear source.
- Vital Signs / Lab Results
Temp Pulse Resp BP Pulse Ox
98.6 F 58 20 99/57 100
07/07/25 19:58 07/07/25 19:15 07/07/25 19:58 07/07/25 19:00 07/07/25 19:58
Lab Results - Hematology
07/07/25 07/07/25
12:07 18:26
WBC 13.2 H Cancelled
Lab Results - Chemistry
07/07/25
12:07
BUN 26 H
Creatinine 0.8
Albumin 4.3
07/07/25 07/07/25 07/07/25
12:36 17:06 19:48
Lactic Acid 2.7 H 0.9 1.7
Lab Results - Urine
07/07/25
14:57
Urine Nitrite (Reflex) Negative
Leukocyte Esterase Rfl Negative
Urine WBC (Reflex) 11-15 A
Ur Squamous Epith Cells 6-10
Urine Bacteria (Reflex) Few A
Microbiology Results
07/07/25 12:08 Influenza Types A & B (JOHN) - Final
Nasal Swab Negative for Influenza A & B, NAAT
Negative results must be combined with clinical observations
and patient history.
Nucleic Acid Amplification test (NAAT)performed on the
[employer] platform.
--- NOTE | 2025-07-07 23:00 | PTCARENOTE ---
report received from previous RN, walking rounds done. pt in bed, sleeping. VSS. SR/SB on monitor, HR 50s-60s. +peripheral pulses. B/L breath sounds present. POX 98% on room air. R radial site and R groin site stable, CDI. PIV x2 intact and patent.
see worklist for full assessment, VS, and interventions.
--- NOTE | 2025-07-07 23:04 | PTCARENOTE ---
Received pt @ change of shift. Pt on bed rest post cath-- right groin clean, dry, and intact. No ecchymosis, oozing, or hematoma present at this time. Discussed staying flat, keeping leg straight, and expected ambulation time of 2144. Pt verbalizes
understanding. Assessment completed, medication given-- see OCT. Seizure precautions in place-- bed rails padded w/ blanket, lights kept low, bed in lowest position, high fall risk protocol initiated-- no bed alarm needed as pt is AAOx3 and calls
appropriately. Discussed care for the morning. Plan of care ongoing. Call esparza within reach.
[2025-07-08] VITALS (8 sets, daily range): BP systolic 99–119; BP diastolic 48–65; BMI 24.4
[2025-07-08 01:35] LABS: Troponin I 50.500 ng/ml
[2025-07-08] MEDS: VANCOCIN 200 IV (06:14)
[2025-07-08 06:36] LABS: APTT 20.7 Sec (23.4-35.0)
[2025-07-08 06:41] LABS: Hematocrit 32.4 % (37.0-47.0); Hemoglobin 10.8 g/dL (12.0-16.0); Mean Corp Hgb Conc. 33.3 g/dL (33.0-37.0); Mean Corpuscular Volume 88.8 fL (81.0-99.0); Nucleated Red Blood Cells % 0 %; Red Cell Dist. Width 12.3 % (11.5-14.5)
[2025-07-08 07:11] LABS: Troponin I 37.900 ng/ml
[2025-07-08] MEDS: BRILINTA 90 MG PO ×2 (07:47→19:42)
[2025-07-08] MEDS: TYLENOL 650 MG PO ×2 (07:48→15:32)
[2025-07-08] MEDS: KEPPRA 750 MG PO ×2 (07:48→19:43)
[2025-07-08 07:59] LABS: ACT-LR - POC 276 Seconds (116-155)
--- NOTE | 2025-07-08 08:16 | W.PN.CARDCBS ---
Addendum entered and electronically signed by Jerad Vela MD 07/08/25 16:40:
I saw and examined the patient.
The Payroll Master's note was reviewed and I agree with the note.
Comment: Briefly, 65-year-old woman who presented yesterday following a seizure with nausea vomiting and chest discomfort who was found to have late presentation of an inferior STEMI and subsequently underwent RCA PCI 07/07/2025.
Overall she is doing well today and does not have recurrent symptoms
Troponin peaked overnight at 90, no need to trend further
Echo showed normal LV function
No evidence of acute heart failure on physical exam
Maintaining sinus rhythm on telemetry
Recommend aspirin/Brilinta, high intensity statin and metoprolol
Tentative plan to address residual disease in the LAD as a staged procedure
Eventual cardiac rehab
Will defer management of antibiotics to primary team and infectious disease
Addendum entered and electronically signed by Tiff Vann PA-C 07/08/25 14:35:
I called and talked with the nurse at Dr. Cotto's office, the patient's neurosurgeon at [facility], to make them aware that the patient had PCI and will now be on aspirin and Brilinta therapy. The patient had already called as well and talked with
the nurse at the neurosurgery office and was told that surgery might be delayed. No additional information was taken from me then I was told that the doctor was aware.
Original Note:
Today's Communication / Plan
-
Increase Crestor to 20 mg daily
Start aspirin 81 mg daily
Check follow-up echo study
Will discuss with her neurosurgeon at [facility] later today the results of cardiac cath and try to get a sense of whether or not her previously planned craniotomy incision revision surgery for this upcoming Saturday needs to be rescheduled
Impression / Plan
-
PCP: Dr. Benítez
Card: Dr. Leslie Anglin
Neurosurgeon: Dr. Hussein Biggs
Impression:
Admitted with chest pain and elevated Troponin 07/07/25
Late presentation of acute IWMI, peak troponin 90.9
CAD
s/p 3 mm Currie JASON to 100% proximal occlusion of the RCA 07/07/2025
Residual 80% mid LAD lesion by cardiac cath 07/07/2025
FH premature CAD with h/o calcium score of 66 05/31/23
Recurrent meningioma
s/p right frontal craniotomy and XRT at [facility] 2013
s/p repeat right frontal craniotomy at [facility] 10/2024
Focal seizures
following with neurology at [facility], symptoms are left arm paralysis and paresthesias
h/o right breast lumpectomy and XRT
Echo 08/02/23: EF 55-60%, no WMA, mild MR
Echo 07/07/25: EF 55 to 60%, normal LV size and function, no WMA, no significant change compared to echo 07/2023
Plan:
-Patient came to the ER with symptoms of chest pain, nausea and vomiting and was admitted with a troponin of 9 and cardiology was consulted.
-Symptoms on admission included chest pain, nausea and vomiting. Initial troponin was 9. Bedside echo showed preserved EF, but ECG with inferior ST changes. Following consultation with the patient's primary neurosurgeon at [facility] the patient was
allowed to start heparin gtt including boluses for cardiac catheterization. Due to ongoing chest pain, increasing troponin and ECG changes the patient was taken to the Sales Leader where she was found to have 100% occlusion of the proximal RCA with
LIZET 0 flow. Patient had PTCA and stenting with a 3 mm Yusuf JASON.
-Patient noted to have residual 80% mid LAD lesion by cardiac cath 07/07/2025 and plan at this time is for staged intervention as an outpatient in the next several weeks to allow for healing following late presentation IN and to ensure that the
patient is tolerating DAPT.
-Patient is new to aspirin 81 mg daily and Brilinta 90 mg BID.
-Troponin peaked at 90.9. Echo from 07/07/2025 prior to cardiac catheterization showed preserved EF without WMA. Recheck echo as a follow-up study on 07/08/2025 to reassess EF and look for any WMA. Orders placed by me.
-Cardiac rehab consulted
-Check CVE, orders placed by me 07/08/2025. Outpatient doses of Crestor 10 mg daily and Zetia 10 mg daily were continued on admission, will increase Crestor to 20 mg daily, orders placed by me.
-BP a bit improved compared to 07/07/2025, will try adding Toprol-XL 12.5 mg daily.
-Pending response to the addition of BB we can consider adding KWESI/ARB on 07/09/2025
-Check HgbA1c, orders placed by me
-Patient's updated at the bedside by me on 07/08/2025. Follow on telemetry for another 24 hours and pending telemetry review, echo and labs patient can likely be discharged to home on 07/09/2025. Await discussion with the patient's
neurosurgeon at [facility], Dr. Biggs, later on 07/08/2025 to see if patient is still going to have her craniotomy incision revision procedure that had been scheduled for 07/13/2025.
HPI: Patient came to the ER today with chest pain and cardiology consulted for elevated Troponin. Patient's helps with bulk of HPI. Patient had initial right frontal craniotomy for meningioma in 2013 and had a recurrent craniotomy and
resection 10/2024. Patient's wound didn't heal well superficially and patient has had continued drainage of CSF so she is scheduled to have incision revision procedure at [facility] 07/13/25. Also since her last craniotomy patient developed focal seizures
with symptoms of paresthesias and paralysis of her LUE and sometimes face. Patient follows with a neurologist at [facility] and is now on Keppra. Patient started with one of her focal seizures yesterday afternoon, but she also had symptoms of central and
right sided chest pain. Symptoms lasted for hours and patient's noted that she was lethargic and not acting herself. This morning patient started with nausea and vomiting and so her called their care team at [facility], but didn't feel
comfortable driving her to [facility] ER so they came here. Initial ECG was concerning for inferior infarct. Initial Troponin 9.
Progress Note - Basketball Commentator
Subjective
Date of Service: July 08, 2025
Patient reports some ongoing chest discomfort that is different than her symptoms from admission, patient also noting right toe paresthesias
Objective
Labs:
07/08/25 06:10
Labs
Hgb 10.8 g/dL (12.0-16.0) L 07/08/25 06:10
Hct 32.4 % (37.0-47.0) L 07/08/25 06:10
Plt Count Cancelled 07/07/25 18:26
APTT 20.7 Sec (23.4-35.0) L 07/08/25 06:10
Sodium Cancelled 07/08/25 06:10
Potassium Cancelled 07/08/25 06:10
BUN Cancelled 07/08/25 06:10
Creatinine Cancelled 07/08/25 06:10
Glucose Cancelled 07/08/25 06:10
Troponins
07/07/25 07/07/25 07/07/25
12:07 14:34 19:48
Troponin I 9.400 H* 16.100 H* D 90.900 H* D
07/08/25 07/08/25
00:44 06:10
Troponin I 50.500 H* D 37.900 H*
Vital Signs and I&O:
Vital Signs
Temp Pulse Resp BP Pulse Ox
98.5 F 71 20 115/53 100
07/08/25 06:54 07/08/25 07:00 07/08/25 06:54 07/08/25 06:54 07/08/25 07:56
Vital Signs
Temp Pulse Resp BP Pulse Ox
98.5 F 71 20 115/53 100
07/08/25 06:54 07/08/25 07:00 07/08/25 06:54 07/08/25 06:54 07/08/25 07:56
Intake & Output
07/06/25 07/07/25 07/08/25 07/09/25
06:59 06:59 06:59 06:59
Intake Total 240 / 240
Balance 240 / 240
Physical Exam
Physical Exam
GEN: NAD. AAOx3
HEENT: EOMI, MMM
LUNGS: RA. No wheeze
CV: SR on tele.
[2025-07-08 08:17] LABS: Platelet Count 205 10^3/uL (130-400)
[2025-07-08 09:23] LABS: Blood Urea Nitrogen 20 mg/dl (7-17); Calcium 9.0 mg/dl (8.4-10.2); Carbon Dioxide 28 mmol/L (22-30); Chloride 106 mmol/L (98-107); Estimated Creatinine Clearance 62 ml/min; Glucose 115 mg/dl (70-99); HDL Cholesterol 55 mg/dl; LDL Cholesterol, Calculated 33 mg/dl; Potassium 4.1 mmol/L (3.5-5.1); Sodium 137 mmol/L (135-145); Very Low Density Lipoprotein 15 mg/dl (0-30); eGFR > 60.00
[2025-07-08] MEDS: LOW STRENGTH ASPIRIN 81 MG PO (10:25)
[2025-07-08] MEDS: TOPROL XL 12.5 MG PO (10:25)
--- NOTE | 2025-07-08 10:44 | CON.ID ---
Consultation
-
Date/Time Consultation Requested: 07/07/25 18:26
Date/Time Consultation Performed: 07/07/25 10:45
Requesting Provider: Dr Neves
Performing Provider: Dr Kapadia
Reason for Consultation: fever
Chief Complaint / Past History
Chief Complaint
headache, vomiting
History of Present Illness
Ms Johnson is a 65 year old female with recurrent meningioma s/p resection October 2024 at [facility] with focal aware seizure who presented here yesterday for fever (101-102) on and off for several hours, headache and vomiting. Symptoms began the day
before arrival with headache and episode of vomiting. She had a seizure that was longer than her typical 20 minutes. She typically has a few seizures per month. She noted weakness in the bilateral lower extremities and was not able to stand, she
was lethargic. Then the am of arrival she developed nausea, vomiting and right sided chest pain. These symptoms lasted for hours so she presented here. She admits to being around a toddler with a cold as recently as last saturday, she was visiting
family in [place] and flew back saturday. Denies: sinus tenderness, sore throat, cough, sputum production, diarrhea, constipation, dysuria, new rashes or joint pains. She has noticed some new numbness in the toes of the right foot.
Note poor healing of her right frontal craniotomy. She has a scab in the scalp about 1 cm x about 2 cm, not currently with any active CSF leaking. She estimates that it last leaked about 2 weeks ago, the scab came off and a screw was visible, then
it spontaneously scabbed over again- there is no visible hardwear at this moment. She has no neck stiffness or photophobia. She is currently planned for craniotomy incision revision surgery next saturday.
Since arrival here she has been afebrile, bp overall stable, wbc 8.6, hgb 10.8, plt 205, no L shift, na 137, cr 0.7, initial troponin 9 with a peak at 90 yesterday. lactic acid initially 2.7 which normalized quickly, t bili 0.8, ast 102, alt 29,
alk phos 77, ua 11-15 wbc/hpf, EKG with inferior ST changes. Echo without wall motion abnormalities, She was taken to the cardiac catheterization technician where 100% occlusion of the proximal RCA with LIZET 0 flow was noted, had PTCA and stenting, also with 80% mid LAD
lesion with plan for staged intervention as outpatient, CT PE no acute PE of changes in the chest, CT head without IV contrast: 6.6 mm hypodense extra-axial collection without mass effect - possibly a chronic collection with underlying dural
thickening, infection cannot be excluded. ER and cardiology services spoke with her [facility] neurosurgery team and indicated that the extra-axial collection is stable and transfer is not required. blood cultures x2 in progress, urine culture no growth,
influenza negative, covid ag negative, MRI and LP were discussed in the ER and refused by patient. She was started on cefepime/vancomycin initially and then switched to ceftriaxone 2 gm IV q24 and vancomycin.
Past History
Additional Past Medical History:
Meningioma brain tumor resection twice in the past decade - Breast cancer with lumpectomy last year - Gamma Knife radiation for meningioma treatment
Additional Past Surgical History:
as per hpi
Allergy History:
ampicillin Allergy (Verified 07/07/25 12:01)
Rash
erythromycin base (Erythromycin Base) Allergy (Verified 07/07/25 12:01)
RASH,ITCHING
Latex, Natural Rubber Allergy (Verified 07/07/25 18:29)
Rash-nose red and itchy
nitrofurantoin (From Macrobid) Allergy (Verified 07/07/25 18:29)
Shortness of Breath
nitrofurantoin macrocrystalline (From Macrobid) Allergy (Verified 07/07/25 18:29)
Shortness of Breath
Penicillins Allergy (Verified 07/07/25 12:01)
RASH,ITCHING
Sulfa (Sulfonamide Antibiotics) (Sulfa (Sulfonamides)) Allergy (Verified 07/07/25 12:01)
ITCHING,RASH
Medications Reviewed: Yes
Social History
Tobacco: Non-Smoker
Alcohol: None
Drug: None
Family History
Family History: Not Pertinent
Review of Systems
Vital Signs
Temp Pulse Resp BP Pulse Ox
98.5 F 78 20 99/56 100
07/08/25 06:54 07/08/25 10:25 07/08/25 06:54 07/08/25 10:25 07/08/25 07:56
Physical Exam
Physical Exam
Constitutional: No Acute Distress
Head: Other (crusting about 1 cm x about 2 cm, no visible drainage or hardwear, no surrounding erythema; neck is supple, lights are on in the room)
Cardiovascular: Regular Rate and S1/S2; Negative Murmur or Rub
Pulmonary: Clear and Symmetric; Negative Wheezes, Rales or Rhonchi
Gastrointestinal: Soft, Non Tender, Non Distended and Normal Bowel Sounds
Skin: Warm and Dry; Negative Rash or Jaundice
Lab / Diagnostic Study Results
07/08/25 06:10
07/08/25 08:20
Abs Immat Gran (auto) 0.0 10^3/uL (0-0.05) 07/08/25 06:10
Absolute Neuts (auto) 5.8 10^3/uL (1.4-6.5) 07/08/25 06:10
Absolute Lymphs (auto) 1.5 10^3/uL (1.2-3.4) 07/08/25 06:10
Absolute Monos (auto) 1.1 10^3/uL (0.1-0.6) H 07/08/25 06:10
Absolute Basos (auto) 0.0 10^3/uL (0-0.2) 07/08/25 06:10
Immature Gran % 0.5 % (0-0.5) 07/08/25 06:10
Neutrophils % 68.0 % (42.2-75.2) 07/08/25 06:10
Lymphocytes % 17.8 % (20.5-51.1) L 07/08/25 06:10
Monocytes % 12.7 % (1.7-9.3) H 07/08/25 06:10
Eosinophils % 0.5 % (0-6) 07/08/25 06:10
Basophils % 0.5 % (0-2) 07/08/25 06:10
Lactic Acid 1.1 mmol/L (0.7-2.0) 07/08/25 00:44
Ur Squamous Epith Cells 6-10 /LPF (Few) 07/07/25 14:57
Microbiology Results
Micro:
07/07/25 13:18 Blood Culture - Pending
Blood/Venous
07/07/25 14:57 Urine Culture - Pending
Urine
07/07/25 12:36 Blood Culture - Pending
Blood/Venous
07/07/25 12:08 Influenza Types A & B (JOHN) - Final
Nasal Swab Negative for Influenza A & B, NAAT
Negative results must be combined with clinical observations
and patient history.
Nucleic Acid Amplification test (NAAT)performed on the
[employer] platform.
Assessment / Plan
Fever - possibly resolved
Intermittent CSF leak - no leakage for the last two weeks
chronic extraaxial collection - reportedly unchanged
Allergies: penicillin/ampicillin, erythromycin, sulfa and latex - rash and itching; nitrofurantoin - shortness of breath
- no focal symptoms at this time, also no fevers have been identified in the last 24 hours on vancomycin and cefepime
- does report recent exposure to a toddler with a cold
- no active CSF leakage for about 2 weeks, no stiff neck or photo phobia - no compelling need for LP at this moments and risks would include her need for brillanta post cardiac stenting
- blood cultures x2 in progress no growth to date
- UA minimal pyuria, urine culture negative
- covid and influenza screens negative
- would observe overnight on vancomycin and ceftriaxone, if further fevers would consider additional workup, if no further fevers and cultures remain negative could consider discharge off of antibiotics; she understands that she should return to the
ER if fevers relapse
--- NOTE | 2025-07-08 10:49 | CM ---
Reviewed chart. Met with and Mrs. Johnson to review discharge plans. She states prior to admission she resides with her spouse in a two story home with one step to enter. She states she has a full flight of steps to get to bedroom/full
bathroom. She states she has a powder room on the first floor. She states prior to admission she was independent with ambulation and adls. She states she does not have any DME in the home. She has a prescription pplan and uses [facility].
Telephone call to call to [facility] to check on co-pay for Brilinta/ Ticagrelor 90 mg po bid. [facility] has Ticagrelor in stock and she has a zero co-pay for Ticagrelor. Medical work-up in progress. The discharge plan is to return home with
her spiuse when medically stable.
[2025-07-08 14:07] LABS: Glycohemoglobin (HgbA1c) 5.5 % (4.0-5.9)
--- NOTE | 2025-07-08 14:29 | W.PN.HOSP.TC ---
Today's Communication/Plan
-
Assessment / Plan
Assessment / Plan
NAD
Scleral Anicteric
MMM
No JVD
CTABL
RRR, S1/S2
Soft, NT, ND, BS+
Warm, Dry
AAOx3
Calm
NSTEMI secondary CAD s/p JASON to RCA on 07/07
mLAD pci to be completed as and outpatient
Continue bb, dapt, statin and zetia
Sepsis unclear source
Evaluated by infectious disease there is no further fevers no further CSF leak following 2 weeks
Monitor off of antibiotics
If no fevers then likely able to discharge tomorrow otherwise if noted fevers then will need
History of recurrent meningioma
Second resection October 2024
Outpatient neurosurgery follow-up
Focal unaware seizure
Started after second cranial neurotomy
Continue Keppra
Hyperlipidemia
Continue statin
Anxiety
Continue clonazepam
Anticipated Discharge: 24 - 48 hours
Subjective/Interval History
-
Date of Service: July 08, 2025
Seen and examined. No new complaints. No acute overnight events
Objective Data
-
Labs:
Laboratory Results
07/08/25 07/08/25
06:10 08:20
WBC 8.6
Hgb 10.8 L
Hct 32.4 L
Plt Count 205 D
APTT 20.7 L
Sodium Cancelled 137
Potassium Cancelled 4.1
Chloride Cancelled 106
Carbon Dioxide Cancelled 28
BUN Cancelled 20 H
Creatinine Cancelled 0.7
Glucose Cancelled 115 H
Calcium Cancelled 9.0
Vital Signs:
Vital Signs
Temp Pulse Resp BP Pulse Ox
97.9 F 75 20 110/59 97
07/08/25 11:10 07/08/25 11:10 07/08/25 11:10 07/08/25 11:10 07/08/25 11:10
I&O
07/07/25 07/08/25 07/09/25
06:59 06:59 06:59
Intake Total 240 / 240
Balance 240 / 240
--- NOTE | 2025-07-08 16:55 | PHA.VAN.FU ---
Vancomycin Assessment / Plan
- Assessment
Renal Function: Stable
WBC's are: WNL
In the past 24 hrs, patient has been: Afebrile
Concomitant Antimicrobials: ceftriaxone
- Dosing Plan
Continue: Vanc 1000mg Q24H
- Monitoring Plan
No level(s) ordered at this time: consider levels in next few days
- Follow Up
Pharmacy will continue to follow.
Vancomycin Follow UP
- -
Patient Age: 65
Patient Sex: Female
Vancomycin Day #: 2
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
Requesting Provider: Dr Edinson Jean (Resident)
Pertinent Antimicrobial Allergies:
ampicillin - rash
erythromycin - rash, itching
nitrofurantoin - SOB
penicillin - rash, itching
sulfonamide antibiotics - itching, rash
Height / Weight:
Height 5 ft 1 in
Actual Weight 58.6 kg
Pertinent Past Medical History: BMI ~24
- Vital Signs / Lab Results
Temp Pulse Resp BP Pulse Ox
99.4 F 76 20 119/59 99
07/08/25 15:08 07/08/25 15:09 07/08/25 15:08 07/08/25 15:09 07/08/25 15:08
Lab Results - Hematology
07/07/25 07/07/25 07/08/25
12:07 18:26 06:10
WBC 13.2 H Cancelled 8.6
Lab Results - Chemistry
07/07/25 07/08/25 07/08/25
12:07 06:10 08:20
BUN 26 H Cancelled 20 H
Creatinine 0.8 Cancelled 0.7
Estimated Creat Clear Cancelled 62
Albumin 4.3
07/07/25 07/07/25 07/07/25
12:36 17:06 19:48
Lactic Acid 2.7 H 0.9 1.7
07/08/25
00:44
Lactic Acid 1.1
Microbiology Results
07/07/25 13:18 Blood Culture - Preliminary
Blood/Venous No Growth in 24 hours- Final report to follow
07/07/25 12:36 Blood Culture - Preliminary
Blood/Venous No Growth in 24 hours- Final report to follow
07/07/25 14:57 Urine Culture - Final
Urine NO GROWTH
07/07/25 12:08 Influenza Types A & B (JOHN) - Final
Nasal Swab Negative for Influenza A & B, NAAT
Negative results must be combined with clinical observations
and patient history.
Nucleic Acid Amplification test (NAAT)performed on the
[employer] platform.
[2025-07-08] MEDS: CRESTOR 20 MG PO (18:43)
[2025-07-08] MEDS: ZETIA 10 MG PO (18:43)
--- NOTE | 2025-07-08 19:22 | PTCARENOTE ---
Pt c/o headache on top of her head which improved after tylenol, pt also reported some vague chest discomfort in the morning which waxed and waned and resolved. Pt also reports tingling in her feet. Pt encouraged to walk in halls which she did with
her without problem. Telemetry shows sinus rhythm with one run of 4bts NSVT. Antibiotics continue, maximum temp today 99.4.
[2025-07-08 19:36] LABS: Hepatitis C Antibody Negative (Negative)
[2025-07-08] MEDS: STERILE WATER FOR INJECTION 20 ML IV (19:44)
[2025-07-08] MEDS: ROCEPHIN 2000 MG IV (19:44)
[2025-07-08] MEDS: NEURONTIN 600 MG PO (21:05)
--- NOTE | 2025-07-08 21:56 | PTCARENOTE ---
Pt. complaining of intermittent SOB at rest, worse when she lays on her left side,as well as intermittent chest pressure. Room air pulse ox 97-99%, lungs diminished with very faint crackles left base. States pressure comes and goes and is not the
same discomfort she had with initial NSTEMI. NSR on the monitor. 2L O2 applied for comfort and hospitalist APPLICATION PROGRAMMER ANALYST Carlee Loomis notified. Pro-BNP ordered for AM. Pt. states O2 helps, currently resting quietly in bed.
[2025-07-09 04:20] VITALS: BP 110/63
[2025-07-09 04:33] VITALS: BMI 23.8
[2025-07-09 04:46] LABS: Hematocrit 28.6 % (37.0-47.0); Hemoglobin 9.9 g/dL (12.0-16.0); Mean Corp Hgb Conc. 34.6 g/dL (33.0-37.0); Mean Corpuscular Volume 88.0 fL (81.0-99.0); Platelet Count 194 10^3/uL (130-400); Red Cell Dist. Width 12.3 % (11.5-14.5)
[2025-07-09] MEDS: VANCOCIN 200 IV (06:26)
[2025-07-09 07:18] VITALS: BP 113/63
[2025-07-09] MEDS: TOPROL XL 12.5 MG PO (08:08)
[2025-07-09] MEDS: LOW STRENGTH ASPIRIN 81 MG PO (08:08)
[2025-07-09] MEDS: KEPPRA 750 MG PO ×2 (08:08→19:38)
[2025-07-09] MEDS: BRILINTA 90 MG PO ×2 (08:09→20:00)
--- NOTE | 2025-07-09 09:01 | W.PN.ID1 ---
Date of Service
Date of Service: July 09, 2025
Today's Communication
- no further fevers and cultures remain negative - could consider discharge off of antibiotics; she understands that she should return to the ER if fevers relapse
Assessment / Plan
Fever - likely resolved
Intermittent CSF leak - no leakage for the last two weeks
chronic extraaxial collection - reportedly unchanged
Allergies: penicillin/ampicillin, erythromycin, sulfa and latex - rash and itching; nitrofurantoin - shortness of breath
- no definite evidence of infection, some intermittent headache responsive to tylenol and intermittent shortness of breath with elevated pro-BNP, blood cultures remain negative, also no fevers have been identified in the last 2 days on vancomycin
and cefepime - stopped
-slight rash on the forearm only while vancomycin was being infused - nothing visible at this time, not likely to be allergic
- fevers are occasionally associated with WI
- no further fevers and cultures remain negative - could consider discharge off of antibiotics; she understands that she should return to the ER if fevers relapse
Chief Complaint
-: Fever
Subjective / Review of Systems
remains afebrile
bp stable
had some intermittent shortness of breath at rest
headache last night resolved with tyenol, minimal headache today, no neck stiffness or photophobia
vague chest discomfort that waxed and waned
slight rash on the forearm only while vancomycin was being infused - nothing visible at this time, not likely to be allergic
Vital Signs / Physical Exam
Vital Signs
Vital Signs
Temp Pulse Resp BP Pulse Ox
98.9 F 71 20 113/63 98
07/09/25 07:18 07/09/25 07:18 07/09/25 07:18 07/09/25 08:08 07/09/25 08:02
Physical Exam
Constitutional: No Acute Distress
Cardiovascular: Regular Rate and S1/S2; Negative Murmur or Rub
Pulmonary: Clear and Symmetric; Negative Wheezes or Rales
Gastrointestinal: Soft, Non Tender, Non Distended and Normal Bowel Sounds
Skin: Warm and Dry; Negative Rash or Jaundice
Wound: Other (scab on the scalp remains, no drainage or erythema)
Objective Data
Lab Data
Lab Results
07/09/25 04:29
07/08/25 08:20
APTT 20.7 Sec (23.4-35.0) L 07/08/25 06:10
Estimated Creat Clear 62 ml/min 07/08/25 08:20
Lactic Acid 1.1 mmol/L (0.7-2.0) 07/08/25 00:44
Total Bilirubin 0.8 mg/dl (0.2-1.3) 07/07/25 12:07
AST 102 U/L (14-36) H 07/07/25 12:07
ALT 29 U/L (0-35) 07/07/25 12:07
Alkaline Phosphatase 77 U/L (38-126) 07/07/25 12:07
Most recent labs reviewed.
Micro Results:
07/07/25 13:18 Blood Culture - Preliminary
Blood/Venous No Growth in 24 hours- Final report to follow
07/07/25 12:36 Blood Culture - Preliminary
Blood/Venous No Growth in 24 hours- Final report to follow
07/07/25 14:57 Urine Culture - Final
Urine NO GROWTH
07/07/25 12:08 Influenza Types A & B (JOHN) - Final
Nasal Swab Negative for Influenza A & B, NAAT
Negative results must be combined with clinical observations
and patient history.
Nucleic Acid Amplification test (NAAT)performed on the
[employer] platform.
Care Review
Plan reviewed with: Physician (Dr Precious Presley - gaudencioo)
[2025-07-09] MEDS: PROTONIX 40 MG PO (10:30)
--- NOTE | 2025-07-09 11:31 | CM ---
Reviewed chart. Met with and Mrs. Johnson to review discharge plans. She state she is feeling better but still some chest discomfort. She has been ambulating in the hallway with her spouse. Prior to admission she resides with her spouse in a two
story home with one step to enter. She has a full flight of steps to get to bedroom/full bathroom. She has a powder room on the first floor. She Prior to admission she was independent with ambulation and adls. She does not have any DME in the
home. She has a prescription plan and uses [facility]. Telephone call to call to [facility] to check on co-pay for Brilinta/ Ticagrelor 90 mg po bid. [facility] has Ticagrelor in stock and she has a zero co-pay for Ticagrelor. Medical
work-up in progress. The discharge plan is to return home with her spouse when medically stable.
Initialized on 07/08/25 10:49 - END OF NOTE
[2025-07-09 12:01] VITALS: BP 107/71
--- NOTE | 2025-07-09 13:20 | PN.CDI ---
CDI
- -
CDI:
Physician Documentation Request
Admit Date: 07/07/25 17:36
Dear Doctor Fernandez,
Please review the following and provide your response in the progress notes.
Clinical Indicators:
Pt admitted with Nausea/Vomiting /chest pressure
There is potentially conflicting documentation in the record regarding WI.
Progress note 07/08, ' NSTEMI secondary CAD s/p JASON to RCA on AD pci to be completed as and outpatientContinue bb, dapt, statin and zetia,,,'
Cardiology note 07/08, 'Late presentation of acute IWMI, peak troponin 90.9... was found to have late presentation of an inferior STEMI and subsequently underwent RCA PCI 07/07/2025....'
Please clarify the following regarding the documented myocardial infarction:
STEMI
NSTEMI ( no change in documentation)
Other (please specify)
Use of terms such as suspected, likely, concern for, or probable (associated with a specific diagnosis that is being evaluated, monitored, or treated as if it exists) are acceptable and can be coded in the inpatient setting, when documented at the
time of discharge.
Thank you,
Sary Melissa RN
CDI Specialist
[place] [employer]
Please use your independent medical judgment in providing your response.
--- NOTE | 2025-07-09 13:23 | W.PN.CARDCBS ---
Addendum entered and electronically signed by Mamie Bernardo DO 07/10/25 07:00:
I saw and examined the patient 07/09/25
The Veterinary Surgeon's note was reviewed and I agree with the note.
Comment: Late entry. Patient was seen and examined with her and RN at bedside. Reporting a mild constant discomfort in her chest which worsens when she takes a deep breath. Denies abdominal pain or dysuria. She denies gross hematuria.
Denies melena at home; has not had a bowel movement here. No fevers or headaches. No further nausea or vomiting. Patient provided me phone number to her neurosurgical coordinator Katelyn Hayden, .
GEN: No distress, awake, alert, oriented x3
HEENT: mmm
LUNGS: no audible wheezes, no tachypnea
CV: Reg, S1/S2, no murmur or rub
ABD: soft, BS+, NT/ND
EXT: No cyanosis, clubbing, edema
NEURO: Gross non-focal
Plan:
Medically complex 65-year-old female who presented with chest pain/nausea and vomiting found to have inferior ST elevations status post cardiac catheterization finding 100% occlusion of the proximal RCA status post successful PTCA and placement of a
3/34 mm Medtronic [place] frontier drug-eluting stent 07/07/2025. During this procedure patient was also noted to have focal 80% stenosis in the mid LAD just distal to the takeoff of D2. Ostial D2 has a 70% stenosis and a proximal 60 to 70% stenosis.
Circumflex artery has mild diffuse disease with a 20% ostial stenosis.
- Troponin peak at 90 and downward trending
- Continue new aspirin 81 mg daily and Brilinta 90 mg twice daily
-Continue ezetimibe 10 mg daily, rosuvastatin 20 mg daily, metoprolol succinate 12-1/2 mg daily
-Lipid profile 07/08/2025: Triglycerides 76, total cholesterol 103, LDL 33, HDL 55.
-Hemoglobin A1c 5.5%
-Post procedure BUN/creatinine 13/0.6, sodium 138, potassium 4.1.
-Post procedure hemoglobin this admission went from 12.6-10 0.8-9.9 this morning. No obvious bleeding. Groin and radial sites look intact. UA positive blood. Will repeat H&H later today, send iron studies and heme check.
- Atypical chest discomfort may be related to post DE pericarditis. If persist could consider adding colchicine
- 2D echocardiogram 07/08/2025 with EF 57%, no reported regional wall motion abnormality and no pericardial effusion.
- Patient is also complaining of tingling in her right toes post procedure. Groin site intact. Foot examination with normal coloring, good cap refill, intact sensation and motion and no edema. Will continue to monitor.
Will need to determine timing of LAD intervention. Cardiac PA called her neurosurgical nurse coordinator Faiza as patient had previously been scheduled for an MRI on and a procedure to address a CSF leak on with Dr. Cotto for
history of recurrent meningioma status post right frontal craniotomy and radiation at [facility] in 2013 and a repeat right frontal craniotomy in October 2024 complicated by focal seizures. Also reviewed plan with clinic mgr and
patient/family. Tentative plan for LAD PCI on Saturday if tolerating aspirin/Brilinta.
Original Note:
Today's Communication / Plan
-
complex case
follow hgb - hemetest, add PPI, check iron studies, repeat UA in AM
consider timing of LAD PCI - possibly as inpatient pending above and neurosurg input
continue asa, brilinta, toprol, crestor, zetia
Impression / Plan
-
PCP: Dr. Benítez
Card: Dr. Leslie Anglin
Neurosurgeon: Dr. Hussein Biggs, [facility]
Impression:
Admitted with chest pain and elevated Troponin 07/07/25
Late presentation of acute IWMI, peak troponin 90.9
CAD
s/p 3 mm Yusuf JASON to 100% proximal occlusion of the RCA 07/07/2025
Residual 80% mid LAD lesion by cardiac cath 07/07/2025
FH premature CAD with h/o calcium score of 66 05/31/23
Recurrent meningioma
s/p right frontal craniotomy and XRT at [facility] 2013
s/p repeat right frontal craniotomy at [facility] 10/2024
Focal seizures
following with neurology at [facility], symptoms are left arm paralysis and paresthesias
h/o right breast lumpectomy and XRT
Echo 08/02/23: EF 55-60%, no WMA, mild MR
Echo 07/07/25: EF 55 to 60%, normal LV size and function, no WMA, no significant change compared to echo 07/2023
ECHO 07/08/25: EF 57%, no regional wall motion abnormalities noted
Plan:
-She is a very complex case
-Patient came to the ER with symptoms of chest pain, nausea and vomiting and was admitted with a troponin of 9 and cardiology was consulted. EKG showed inferior ST changes despite bedside echo showing preserved EF. Patient had meningioma status
post right frontal craniotomy in 2013 with repeat 10/2024. Since that time she has had an open area which has been managed through her neurosurgeon, and was planned for revision on Friday 07/13. Was okayed by neurosurgery to proceed with cardiac
catheterization including IV heparin drip including boluses. During cath noted to have 100% occlusion of proximal RCA and underwent PTCA and JASON placement. Also noted to have residual 80% mid LAD lesion with plan for staged intervention, but
wanted to ensure patient tolerating DAPT prior to additional stent placement.
-Trop peaked at 90.0
-Patient is new to aspirin 81 mg daily and Brilinta 90 mg BID.
-remains with some chest discomfort, mostly with taking deep breath, possibly more pleuritic. EKG 07/09 SR with evidence of inferior changes, appearing consistent with evolving infarct
-hgb downtrending to 9.9 on 07/09. ordered hemetest, iron studies, PPI, and repeat UA for AM. she did have suspected traumatic straight cath in ER which was felt to be etiology of 4+ occult blood noted on UA 07/07.
-called and discussed with neurosurgery nurse coordinator, Faiza at [phone] on 07/09. Patient MRI for 07/12 cancelled and procedure 07/13 also cancelled at this time. they plan to follow up with patient once discharged to discuss options/timing
for craniotomy revision. we discussed that from cardiac standpoint, patient now at risk for in stent restenosis if DAPT is interrupted. Faiza relayed that they had been attempting to manage incision conservatively for several months, had no wound
care recs, have just been advising to keep clean and dry. updated Faiza on above, and that patient will need additional stent placement to LAD. Given her complexity, we discussed possibly completing LAD stent while inpatient as at this point
already committed to DAPT, but awaiting input from Dr. Biggs regarding treatment options and if stent timing would alter surgical timing. Then discussed with IC, who want to ensure that patient tolerating DAPT prior to placement of additional
stent particularly given LAD location. we will trend hgb over next 24-48 hours and make determination of LAD PCI timing based on this and neurosurg input. this was all discussed with patient and at bedside, as well as nursing. we will
continue communication with neurosurgery
-continue crestor at increased dose and OP zetia
-toprol 12.5mg daily added and tolerating. hypotension precludes further uptitration
-eventual cardiac rehab
HPI: Patient came to the ER today with chest pain and cardiology consulted for elevated Troponin. Patient's helps with bulk of HPI. Patient had initial right frontal craniotomy for meningioma in 2013 and had a recurrent craniotomy and
resection 10/2024. Patient's wound didn't heal well superficially and patient has had continued drainage of CSF so she is scheduled to have incision revision procedure at [facility] 07/13/25. Also since her last craniotomy patient developed focal seizures
with symptoms of paresthesias and paralysis of her LUE and sometimes face. Patient follows with a neurologist at [facility] and is now on Keppra. Patient started with one of her focal seizures yesterday afternoon, but she also had symptoms of central and
right sided chest pain. Symptoms lasted for hours and patient's noted that she was lethargic and not acting herself. This morning patient started with nausea and vomiting and so her called their care team at [facility], but didn't feel
comfortable driving her to [facility] ER so they came here. Initial ECG was concerning for inferior infarct. Initial Troponin 9.
Progress Note - Paper Mill Supervisor
Subjective
Date of Service: July 09, 2025
reports some mild chest discomfort with taking deep breath.
Objective
Labs:
07/09/25 04:29
07/08/25 08:20
Labs
Hgb 9.9 g/dL (12.0-16.0) L 07/09/25 04:29
Hct 28.6 % (37.0-47.0) L 07/09/25 04:29
Plt Count 194 10^3/uL (130-400) 07/09/25 04:29
APTT 20.7 Sec (23.4-35.0) L 07/08/25 06:10
Sodium 137 mmol/L (135-145) 07/08/25 08:20
Potassium 4.1 mmol/L (3.5-5.1) 07/08/25 08:20
BUN 20 mg/dl (7-17) H 07/08/25 08:20
Creatinine 0.7 mg/dL (0.6-1.0) 07/08/25 08:20
Glucose 115 mg/dl (70-99) H 07/08/25 08:20
Troponins
07/07/25 07/07/25 07/07/25
12:07 14:34 19:48
Troponin I 9.400 H* 16.100 H* D 90.900 H* D
07/08/25 07/08/25
00:44 06:10
Troponin I 50.500 H* D 37.900 H*
Vital Signs and I&O:
Vital Signs
Temp Pulse Resp BP Pulse Ox
99 F 77 20 107/71 99
07/09/25 12:01 07/09/25 12:01 07/09/25 12:01 07/09/25 12:01 07/09/25 12:01
Vital Signs
Temp Pulse Resp BP Pulse Ox
99 F 77 20 107/71 99
07/09/25 12:01 07/09/25 12:01 07/09/25 12:01 07/09/25 12:01 07/09/25 12:01
Intake & Output
07/07/25 07/08/25 07/09/25 07/10/25
07:59 07:59 07:59 07:59
Intake Total 1120 / 1120
Balance 1120 / 1120
Physical Exam
Physical Exam
GEN: No distress, awake, alert, oriented x3
HEENT: supple, anicteric, mmm, eomi
LUNGS: no audible wheezes, no tachypnea
CV: Reg, S1/S2, no murmur
ABD: soft, BS+, NT/ND
EXT: No cyanosis, clubbing, edema
NEURO: Gross non-focal
SKIN: Warm, pink, dry. No rash
--- NOTE | 2025-07-09 13:30 | PN.CDI ---
CDI
- -
CDI:
Physician Documentation Request
Admit Date: 07/07/25 17:[address] Presley,
[facility] is using an adapted version of the 2016 Third International Consensus Definitions for Sepsis and Septic Shock (Sepsis-3) where sepsis is defined as life threatening organ dysfunction caused by a deregulated host response to infection.
Please reference the official [facility] Sepsis Recognition Tool for further information, which can be found on the Intranet under Infection Prevention.
Clinical Indicators Include:
Documented per H&P, ' Sepsis with unclear source......Lactic acidosis...'
Progress Notes: 07/08 , 'Sepsis unclear source Evaluated by infectious disease there is no further fevers no further CSF leak following 2 weeks Monitor off of antibiotics...'
ID progress note 07/09,' Fever - likely resolved Intermittent CSF leak - no leakage for the last two weeks...- no definite evidence of infection, some intermittent headache responsive to tylenol and intermittent shortness of breath with elevated
pro-BNP, blood cultures remain negative, also no fevers have been identified in the last 2 days on vancomycin and cefepime - stopped...fevers are occasionally associated with CT...'
Lactate: 2.7
Based on your medical judgment, can you further clarify the diagnosis being monitored/treated this admission?
� Sepsis due to unclear source with organ dysfunction of lactic acidosis
� Sepsis ruled out
� Other
Use of terms such as suspected, likely, concern for, or probable (associated with a specific diagnosis that is being evaluated, monitored, or treated as if it exists) are acceptable and can be coded in the inpatient setting when documented at the
time of discharge.
Please use your independent medical judgement in providing your response.
Thank you,
Sary Melissa RN
CDI Specialist
[place] [facility]
[2025-07-09 15:35] VITALS: BP 117/58
--- NOTE | 2025-07-09 17:45 | W.PN.HOSP.TC ---
Today's Communication/Plan
-
Assessment / Plan
Assessment / Plan
NAD
Scleral Anicteric
MMM
No JVD
CTABL
RRR, S1/S2
Soft, NT, ND, BS+
Warm, Dry
AAOx3
Calm
NSTEMI secondary CAD s/p JASON to RCA on 07/07
mLAD pci to be completed as and outpatient
Continue bb, dapt, statin and zetia
Sepsis unclear source
Evaluated by infectious disease there is no further fevers no further CSF leak following 2 weeks
Monitor off of antibiotics
If no fevers then likely able to discharge tomorrow otherwise if noted fevers then will need
History of recurrent meningioma
Second resection October 2024
Outpatient neurosurgery follow-up
Focal unaware seizure
Started after second cranial neurotomy
Continue Keppra
Hyperlipidemia
Continue statin
Anxiety
Continue clonazepam
Anemia, normocytic, likely chronic, hemodynamically stable
Hemoglobin trended down slightly
Will monitor especially since started on antiplatelet
Anticipated Discharge: 24 - 48 hours
Subjective/Interval History
-
Date of Service: July 09, 2025
Seen and examined. No new complaints. No acute overnight events.
Objective Data
-
Vital Signs:
Vital Signs
Temp Pulse Resp BP Pulse Ox
99.3 F 77 20 117/58 99
07/09/25 15:36 07/09/25 17:21 07/09/25 15:36 07/09/25 15:35 07/09/25 17:33
I&O
07/08/25 07/09/25 07/10/25
06:59 06:59 06:59
Intake Total 1120 / 1120 400 / 400
Balance 1120 / 1120 400 / 400
[2025-07-09 18:29] VITALS: BP 128/64
--- NOTE | 2025-07-09 19:23 | PTCARENOTE ---
Pt c/o chest heaviness and mild SOB, breath sounds are clear with oxygen sat. of 99% on room air . H/H slightly lower, awaiting a stool to heme test. Pt up in room and walking in halls without problem. Telemetry shows sinus rhythm. Pt reported light
pink 'blotches' on her left arm @07:00 which she stated had appeared during the vancomycin infusion. Vancomycin dose stopped and skin discoloration resolved completely. aware.
[2025-07-09] MEDS: CRESTOR 20 MG PO (19:38)
[2025-07-09] MEDS: ZETIA 10 MG PO (19:45)
[2025-07-09] MEDS: NEURONTIN 600 MG PO (19:48)
[2025-07-09 19:51] LABS: Hematocrit 35.4 % (37.0-47.0); Hemoglobin 11.8 g/dL (12.0-16.0)
[2025-07-09 22:16] VITALS: BP 109/56
[2025-07-10] VITALS (9 sets, daily range): BP systolic 94–113; BP diastolic 50–80; BMI 23.8
--- NOTE | 2025-07-10 00:54 | PTCARENOTE ---
Pt. has not complained of chest heaviness/pain or SOB so far this shift, VSS, NSR on the monitor. Repeat H&H in evening improved from morning. No BM yet to hemetest; pt. aware urine sample needed for morning. Currently sleeping.
[2025-07-10 04:45] LABS: Hematocrit 31.0 % (37.0-47.0); Hemoglobin 10.5 g/dL (12.0-16.0); Mean Corp Hgb Conc. 33.9 g/dL (33.0-37.0); Mean Corpuscular Volume 89.9 fL (81.0-99.0); Platelet Count 229 10^3/uL (130-400); Red Cell Dist. Width 12.1 % (11.5-14.5)
[2025-07-10 05:02] LABS: Urine Character Clear (Clear)
[2025-07-10 05:14] LABS: Urine White Cell 26-30 /HPF (0-5)
[2025-07-10 05:15] LABS: Blood Urea Nitrogen 13 mg/dl (7-17); Calcium 8.8 mg/dl (8.4-10.2); Carbon Dioxide 30 mmol/L (22-30); Chloride 108 mmol/L (98-107); Estimated Creatinine Clearance 72 ml/min; Glucose 98 mg/dl (70-99); Iron 35 ug/dl (37-170); Potassium 4.1 mmol/L (3.5-5.1); Sodium 138 mmol/L (135-145); eGFR > 60.00
[2025-07-10 05:24] LABS: Total Iron Binding Capacity 285 ug/dl (265-497)
[2025-07-10 05:57] LABS: Ferritin 34.0 ng/ml (11.1-264.0)
--- NOTE | 2025-07-10 09:04 | W.PN.CARDCBS ---
Addendum entered and electronically signed by Torito Loyola MD 07/10/25 11:32:
65-year-old admitted July 07 with nausea, chest discomfort and inferior ST segment elevation DC with 100% occlusion of the proximal RCA treated with 3 x 34 Medtronic [place] drug-eluting stent. She has 80% mid LAD stenosis and 70% ostial D2
stenosis followed by 60-70% proximal stenosis. Luminal irregularities of ostial circumflex and mild diffuse disease distal. Now with chest discomfort that could be pericardial, Peak troponin 90, EF by echo 57% without regional wall motion
abnormalities
PMH/PSH: Meningioma, treated with craniotomy 2013 and October 2024, CSF leak, plan for neurosurgical procedure for the same, seizures disorder, right breast cancer status post lumpectomy and XRT
Current medications: Ticagrelor 90 mg twice daily, gabapentin 600 mg at bedtime, Keppra 750 mg twice daily, ezetimibe 10 mg at bedtime, aspirin 81 mg a day, rosuvastatin 20 mg daily, metoprolol ER 12.5 mg daily, pantoprazole
Some shortness of breath, pleuritic anterior chest pain
109/60, pulse 72, respiratory rate 16, afebrile, weight is 57.2 kg weight on admission was 59 kg, lungs are clear, regular rate and rhythm, no obvious murmurs, no gallops or rubs, JVD okay not much edema
ECG: Sinus rhythm, inferior DC, anterolateral T inversions, anterior infarct
Hemoglobin 10.5, white count 7.3, BUN and creatinine 13 and 0.6, potassium 4.1, proBNP yesterday 1740, last troponin 37.9 on the fourth, she is iron deficient
Impression
Late presentation of acute ST elevation IWMI, peak troponin 90.9
CAD
s/p 3 mm Yusuf JASON to 100% proximal occlusion of the RCA 07/07/2025
Residual 80% mid LAD lesion by cardiac cath 07/07/2025FH premature CAD with h/o calcium score of 66 05/31/23
Recurrent meningioma
s/p right frontal craniotomy and XRT at [place] 2013
s/p repeat right frontal craniotomy at [place] 10/2024Focal seizures
following with neurology at [place], symptoms are left arm paralysis and paresthesiash/o right breast lumpectomy and XRT
Plan:
Have texted Dr. Shearer. While we have been [id number] about timing of LAD PCI, Dr. Shearer would like to wait for 1 to 2 weeks given complexity of her case anemia, DAPT, etc. Apparently neurosurgical procedure is not urgent. We will schedule
outpatient PCI.
Patient is not feeling well today, so I would like to keep her 1 more day. I think there may be an element of HFpEF will treat with IV Lasix. Otherwise maximization of GDMT may be challenging, given blood pressure. EF is preserved, so KWESI/ARB not
mandatory. We could consider SGLT2 antagonist but will hold off for now.
She is iron deficient and would favor iron dextran if hospitalist is in agreements.
For could be an element of pericarditis, would favor colchicine. I think it is unlikely that her current chest symptoms represents LAD or diagonal ischemia.
Hopefully okay for discharge in a.m.
Have discussed with Dr. Presley and patient/
Original Note:
Today's Communication / Plan
-
Give Lasix 20 mg IV x 1
Continue ASA, Brilinta, low dose Toprol and Zetia
Continue to trend H&H
Start colchicine 0.3 mg twice daily
Ongoing discussion with interventional cardiology regarding timing of staged PCI. Ideally would like to see patient on DAPT and tolerating for 1 to 2 weeks prior to LAD stent
Do not feel patient is stable for discharge today, will continue to optimize medical therapy and hopeful discharge within next 24 to 48 hours if patient remains stable
Impression / Plan
-
PCP: Dr. Benítez
Card: Dr. Leslie Anglin
Neurosurgeon: Dr. Hussein Biggs, [place]
Impression:
Admitted with chest pain and elevated Troponin 07/07/25
Late presentation of acute IWMI, peak troponin 90.9
CAD
s/p 3 mm [place] JASON to 100% proximal occlusion of the RCA 07/07/2025
Residual 80% mid LAD lesion by cardiac cath 07/07/2025
FH premature CAD with h/o calcium score of 66 05/31/23
Recurrent meningioma
s/p right frontal craniotomy and XRT at [place] 2013
s/p repeat right frontal craniotomy at [place] 10/2024
Focal seizures
following with neurology at [place], symptoms are left arm paralysis and paresthesias
h/o right breast lumpectomy and XRT
Echo 08/02/23: EF 55-60%, no WMA, mild MR
Echo 07/07/25: EF 55 to 60%, normal LV size and function, no WMA, no significant change compared to echo 07/2023
ECHO 07/08/25: EF 57%, no regional wall motion abnormalities noted
Plan:
-She is a very complex case
-Patient came to the ER with symptoms of chest pain, nausea and vomiting and was admitted with a troponin of 9 and cardiology was consulted. EKG showed inferior ST changes despite bedside echo showing preserved EF. Patient had meningioma status
post right frontal craniotomy in 2013 with repeat 10/2024. Since that time she has had an open area which has been managed through her neurosurgeon, and was planned for revision on Friday 07/13. Was okayed by neurosurgery to proceed with cardiac
catheterization including IV heparin drip including boluses. During cath noted to have 100% occlusion of proximal RCA and underwent PTCA and JASON placement. but wanted to ensure patient tolerating DAPT prior to additional stent placement.
-Also noted to have residual 80% mid LAD lesion with plan for staged intervention, Will need staged PCI. Ongoing discussion with interventional cardiology regarding timing. Ideally would like to see patient on DAPT for 1-2 weeks to make sure she
is tolerating prior to performing LAD PCI. Ongoing discussion regarding timing but likely patient to be discharged once stable medically and to return late next week or week after.
-EKG 12/5 SR with evidence of inferior changes, appearing consistent with evolving infarct; repeat EKG 07/10/2025 due to ongoing complaints of mild shortness of breath and chest tightness shows sinus rhythm with evolving inferior DC and some
nonspecific T wave abnormalities in lateral leads.
-Concern for possible post DC pericarditis. Will start colchicine 0.3 mg twice daily. Reduced dose given patient is on Brilinta.
-Trop peaked at 90.0
-Echocardiograms performed this admission show preserved ejection fraction with no regional wall motion abnormality despite inferior DC.
-Patient is new to aspirin 81 mg daily and Brilinta 90 mg BID post PCI
-New to low-dose Toprol this admission. Unfortunately hypotension continues to preclude initiation of KWESI/ARB.
-Elevated proBNP 1740 with some mild shortness of breath. Weight overall stable and actually down a few pounds since admission. Lungs clear. Give 1 dose of IV Lasix 20 mg now
-Lipid profile 07/08/2025: Triglycerides 76, total cholesterol 103, LDL 33, HDL 55. Continue ezetimibe 10 mg daily, rosuvastatin 20 mg daily, metoprolol succinate 12-1/2 mg daily
-Hemoglobin A1c 5.5%
-Post procedure hemoglobin this admission went from 12.6->10.8->9.9->11.8->10.5 this morning. No obvious bleeding. Groin and radial sites look intact. UA positive blood likely from traumatic straight cath in ED. Hematuria resolved now and UA
negative. Iron studies iron 35, TIBC 285, %saturation 12, ferritin 34. Would repeat CBC 1 to 2 weeks as outpatient.
-Postprocedural chest pain with mild shortness of breath, mostly with taking deep breath. May be related to post DC pericarditis. Could consider colchicine.
-Noted to have low-grade fever early in admission now resolved with negative blood cultures. Antibiotics have been discontinued per ID.
-Eventual cardiac rehab
-From 07/09/2025:Ester Cunningham PA-C 'called and discussed with neurosurgery nurse coordinator, Faiza at [phone] on 07/09. Patient MRI for 07/12 cancelled and procedure 07/13 also cancelled at this time.Tthey plan to follow up with patient once
discharged to discuss options/timing for craniotomy revision. we discussed that from cardiac standpoint, patient now at risk for in stent restenosis if DAPT is interrupted. Faiza relayed that they had been attempting to manage incision
conservatively for several months, had no wound care recs, have just been advising to keep clean and dry. updated Faiza on above, and that patient will need additional stent placement to LAD. Given her complexity, we discussed possibly completing
LAD stent while inpatient as at this point already committed to DAPT, but awaiting input from Dr. Biggs regarding treatment options and if stent timing would alter surgical timing. Then discussed with IC, who want to ensure that patient
tolerating DAPT prior to placement of additional stent particularly given LAD location. we will trend hgb over next 24-48 hours and make determination of LAD PCI timing based on this and neurosurg input. this was all discussed with patient and
at bedside, as well as nursing. we will continue communication with neurosurgery.'
Do not feel patient is stable for discharge on 07/10/2025. Would continue to monitor for another 24 hours for further adjustments in medications and monitoring of symptom
HPI: Patient came to the ER today with chest pain and cardiology consulted for elevated Troponin. Patient's helps with bulk of HPI. Patient had initial right frontal craniotomy for meningioma in 2013 and had a recurrent craniotomy and
resection 10/2024. Patient's wound didn't heal well superficially and patient has had continued drainage of CSF so she is scheduled to have incision revision procedure at [place] 07/13/25. Also since her last craniotomy patient developed focal seizures
with symptoms of paresthesias and paralysis of her LUE and sometimes face. Patient follows with a neurologist at [place] and is now on Keppra. Patient started with one of her focal seizures yesterday afternoon, but she also had symptoms of central and
right sided chest pain. Symptoms lasted for hours and patient's noted that she was lethargic and not acting herself. This morning patient started with nausea and vomiting and so her called their care team at [place], but didn't feel
comfortable driving her to [place] ER so they came here. Initial ECG was concerning for inferior infarct. Initial Troponin 9.
Progress Note - High Worker
Subjective
Date of Service: July 10, 2025
Patient seen and examined. Patient reporting some mild shortness of breath and chest discomfort this morning while sitting in bed. Feels very tired. Also reporting constipation.
Objective
Labs:
07/10/25 04:36
07/10/25 04:36
Labs
Hgb 10.5 g/dL (12.0-16.0) L 07/10/25 04:36
Hct 31.0 % (37.0-47.0) L 07/10/25 04:36
Plt Count 229 10^3/uL (130-400) 07/10/25 04:36
APTT 20.7 Sec (23.4-35.0) L 07/08/25 06:10
Sodium 138 mmol/L (135-145) 07/10/25 04:36
Potassium 4.1 mmol/L (3.5-5.1) 07/10/25 04:36
BUN 13 mg/dl (7-17) 07/10/25 04:36
Creatinine 0.6 mg/dL (0.6-1.0) 07/10/25 04:36
Glucose 98 mg/dl (70-99) 07/10/25 04:36
Troponins
07/07/25 07/07/25 07/07/25
12:07 14:34 19:48
Troponin I 9.400 H* 16.100 H* D 90.900 H* D
07/08/25 07/08/25
00:44 06:10
Troponin I 50.500 H* D 37.900 H*
Vital Signs and I&O:
Vital Signs
Temp Pulse Resp BP Pulse Ox
98.9 F 83 16 94/50 96
07/10/25 08:38 07/10/25 09:00 07/10/25 08:38 07/10/25 08:40 07/10/25 08:38
Vital Signs
Temp Pulse Resp BP Pulse Ox
98.9 F 83 16 94/50 96
07/10/25 08:38 07/10/25 09:00 07/10/25 08:38 07/10/25 08:40 07/10/25 08:38
Intake & Output
07/08/25 07/09/25 07/10/25 07/11/25
06:59 06:59 06:59 06:59
Intake Total 1120 / 1120 880 / 880
Output Total 450 / 450
Balance 1120 / 1120 430 / 430
Physical Exam
Physical Exam
GEN: No distress, awake, Ox3
HEENT: supple, anicteric, mmm
LUNGS: CTA, no wheezes/rales
CV: Reg, S1/S2, no murmur, rub or gallop
ABD: soft, BS+, NT/ND
EXT: Trace edema, no clubbing or cyanosis
NEURO: Gross non-focal
SKIN: No rash, warm, dry, pink
[2025-07-10] MEDS: LOW STRENGTH ASPIRIN 81 MG PO (09:44)
[2025-07-10] MEDS: PROTONIX 40 MG PO (09:44)
[2025-07-10] MEDS: KEPPRA 750 MG PO ×2 (09:45→19:49)
[2025-07-10] MEDS: BRILINTA 90 MG PO ×2 (09:45→19:49)
[2025-07-10] MEDS: SENOKOT-S 1 TABLET PO (09:56)
[2025-07-10] MEDS: TOPROL XL 12.5 MG PO (09:56)
--- NOTE | 2025-07-10 10:28 | PTCARENOTE ---
Patient assisted oob to the bathroom this morning, gait steady. Still having tingling from her feet to her knees and some chest heaviness. Patient seen by hospitalist and cardiology PA, EKG done as ordered. Patient anxious about upcoming PCI and
when it will be done, numerous questions about medications which were answered, asking for assistance with joining patient portal.
--- NOTE | 2025-07-10 11:25 | W.PN.ID1 ---
Date of Service
Date of Service: July 10, 2025
Today's Communication
- complains of progression of new numbness of the right toes to include the foot
was planned for outpatient MRI for her [facility] neurosurgeon saturday - believe hardwear is compatible
- no further fevers and cultures remain negative - will follow clinically off of antibiotics at this time
Assessment / Plan
Fever - likely resolved
Intermittent CSF leak - no leakage for the last two weeks
chronic extraaxial collection - reportedly unchanged
Allergies: penicillin/ampicillin, erythromycin, sulfa and latex - rash and itching; nitrofurantoin - shortness of breath
- no definite evidence of infection and remains afebrile thus far off of antibiotics
- fevers are occasionally associated with RI
- complains of progression of new numbness of the right toes to include the foot
was planned for outpatient MRI for her [facility] neurosurgeon saturday - believe hardwear is compatible
- no further fevers and cultures remain negative - will follow clinically off of antibiotics at this time
Chief Complaint
-: Fever
Subjective / Review of Systems
remains afebrile
bp stable
minimal headache at this time
no photophobia
progression of new numbness of the right toes to include the foot
was planned for outpatient MRI for her [facility] neurosurgeon saturday - believe hardwear is compatible
some positional dyspnea
Vital Signs / Physical Exam
Vital Signs
Vital Signs
Temp Pulse Resp BP Pulse Ox
98.9 F 72 16 109/60 96
07/10/25 08:38 07/10/25 09:56 07/10/25 08:38 07/10/25 09:56 07/10/25 08:38
Physical Exam
Constitutional: No Acute Distress
Cardiovascular: Regular Rate and S1/S2; Negative Murmur or Rub
Pulmonary: Clear and Symmetric; Negative Wheezes or Rales
Gastrointestinal: Soft, Non Tender, Non Distended and Normal Bowel Sounds
Skin: Warm and Dry; Negative Rash or Jaundice
Objective Data
Lab Data
Lab Results
07/10/25 04:36
07/10/25 04:36
APTT 20.7 Sec (23.4-35.0) L 07/08/25 06:10
Estimated Creat Clear 72 ml/min 07/10/25 04:36
Lactic Acid 1.1 mmol/L (0.7-2.0) 07/08/25 00:44
Total Bilirubin 0.8 mg/dl (0.2-1.3) 07/07/25 12:07
AST 102 U/L (14-36) H 07/07/25 12:07
ALT 29 U/L (0-35) 07/07/25 12:07
Alkaline Phosphatase 77 U/L (38-126) 07/07/25 12:07
Most recent labs reviewed.
Micro Results:
07/07/25 13:18 Blood Culture - Preliminary
Blood/Venous No Growth in 48 hours- Final report to follow
07/07/25 12:36 Blood Culture - Preliminary
Blood/Venous No Growth in 48 hours- Final report to follow
07/07/25 14:57 Urine Culture - Final
Urine NO GROWTH
07/07/25 12:08 Influenza Types A & B (JOHN) - Final
Nasal Swab Negative for Influenza A & B, NAAT
Negative results must be combined with clinical observations
and patient history.
Nucleic Acid Amplification test (NAAT)performed on the
Tier 3 platform.
[2025-07-10] MEDS: COLCHICINE 0.3 MG PO ×2 (12:18→19:48)
[2025-07-10] MEDS: LASIX 20 MG IV (12:18)
[2025-07-10] MEDS: FLUSH (NSS) 1 FLUSH IV (12:19)
--- NOTE | 2025-07-10 13:44 | W.PN.HOSP.TC ---
Addendum entered and electronically signed by Leander Presley MD 07/11/25 15:19:
Sepsis ruled out
NSTEMI ( no change in documentation)
Original Note:
Today's Communication/Plan
-
Assessment / Plan
Assessment / Plan
NAD
Scleral Anicteric
MMM
No JVD
CTABL
RRR, S1/S2
Soft, NT, ND, BS+
Warm, Dry
AAOx3
Calm
NSTEMI secondary CAD s/p JASON to RCA on 07/07
mLAD pci to be completed as and outpatient in 2 weeks
Continue bb, dapt, statin and zetia
Sepsis unclear source
Evaluated by infectious disease there is no further fevers no further CSF leak following 2 weeks
Monitor off of antibiotics
If no fevers then likely able to discharge tomorrow otherwise if noted fevers then will need
Right toe with ascending paresthesias
Started on show left heart catheterization, access right groin
Could be related to nerve injury
ID concern once MRI brain.
Suspected pericarditis
Start colchicine
?HFpEF
Cardiology started IV Lasix
History of recurrent meningioma
Second resection October 2024
Outpatient neurosurgery follow-up
Focal unaware seizure
Started after second cranial neurotomy
Continue Keppra
Hyperlipidemia
Continue statin
Anxiety
Continue clonazepam
Anemia, normocytic, likely chronic, hemodynamically stable
Hemoglobin trended down slightly
Will monitor especially since started on antiplatelet
Anticipated Discharge: 24 - 48 hours
Subjective/Interval History
-
Date of Service: July 10, 2025
Seen and examined. No new complaints. No acute overnight events.
Objective Data
-
Labs:
Laboratory Results
07/10/25
04:36
WBC 7.3
Hgb 10.5 L
Hct 31.0 L
Plt Count 229
Sodium 138
Potassium 4.1
Chloride 108 H
Carbon Dioxide 30
BUN 13
Creatinine 0.6
Glucose 98
Calcium 8.8
Vital Signs:
Vital Signs
Temp Pulse Resp BP Pulse Ox
99.0 F 87 18 97/55 98
07/10/25 12:16 07/10/25 13:00 07/10/25 12:16 07/10/25 12:18 07/10/25 12:16
I&O
07/09/25 07/10/25 07/11/25
06:59 06:59 06:59
Intake Total 1120 / 1120 880 / 880 240 / 240
Output Total 450 / 450 800 / 800
Balance 1120 / 1120 430 / 430 -560 / -560
--- NOTE | 2025-07-10 17:57 | PTCARENOTE ---
Patient given IV lasix as ordered, diuresing well and saving urine in the bathroom. Ambulating in the alanis several times this afternoon with her , gait steady. MRI ordered, spoke with nursing banking supervisor, MRI will not be done unless ordered
stat and team called in, patient is aware.
[2025-07-10] MEDS: CRESTOR 20 MG PO (18:26)
[2025-07-10] MEDS: MIRALAX 17 GRAMS PO (18:26)
[2025-07-10] MEDS: NEURONTIN 600 MG PO (19:50)
[2025-07-10] MEDS: ZETIA 10 MG PO (19:51)
--- NOTE | 2025-07-10 22:21 | PTCARENOTE ---
Received patient at change of shift. SR on the monitor, HR in the 70s. Pt with small bowel movement, Hematest negative. Gabapentin and Zetia administered early per pt request. No complaints from pt at this time, call esparza within reach.
[2025-07-11 02:36] VITALS: BP 97/66
[2025-07-11 02:52] VITALS: BMI 23.4
[2025-07-11 03:05] LABS: Hematocrit 33.5 % (37.0-47.0); Hemoglobin 11.4 g/dL (12.0-16.0); Mean Corp Hgb Conc. 34.0 g/dL (33.0-37.0); Mean Corpuscular Volume 89.8 fL (81.0-99.0); Platelet Count 271 10^3/uL (130-400); Red Cell Dist. Width 11.9 % (11.5-14.5)
[2025-07-11 03:26] LABS: Blood Urea Nitrogen 18 mg/dl (7-17); Calcium 8.9 mg/dl (8.4-10.2); Carbon Dioxide 27 mmol/L (22-30); Chloride 103 mmol/L (98-107); Estimated Creatinine Clearance 62 ml/min; Glucose 99 mg/dl (70-99); Potassium 4.0 mmol/L (3.5-5.1); Sodium 138 mmol/L (135-145); eGFR > 60.00
[2025-07-11 08:07] VITALS: BP 99/52
[2025-07-11] MEDS: LOW STRENGTH ASPIRIN 81 MG PO (08:07)
[2025-07-11] MEDS: BRILINTA 90 MG PO (08:07)
[2025-07-11] MEDS: PROTONIX 40 MG PO (08:07)
[2025-07-11] MEDS: COLCHICINE 0.3 MG PO (08:07)
[2025-07-11] MEDS: KEPPRA 750 MG PO (08:09)
[2025-07-11] MEDS: TOPROL XL 12.5 MG PO (08:09)
[2025-07-11] MEDS: FLUSH (NSS) 1 FLUSH IV (08:10)
--- NOTE | 2025-07-11 08:40 | W.PN.CARDCBS ---
Addendum entered and electronically signed by Maryanne Fernández PA-C 07/12/25 12:31:
In response to CDI query: Patient has acute heart failure with preserved ejection fraction, diastolic heart failure
Original Note:
Today's Communication / Plan
-
Furosemide 20 mg IV x 1 now (even though blood pressure marginal)
Otherwise no change in medications
If feeling well okay for discharge later today
See below for medication recommendations
Impression / Plan
-
PCP: Dr. Benítez
Card: Dr. Leslie Anglin
Neurosurgeon: Dr. Hussein Biggs, [place]
Impression:
Admitted with chest pain and elevated Troponin 07/07/25
Late presentation of acute IWMI, peak troponin 90.9
CAD
s/p 3 mm [place] JASON to 100% proximal occlusion of the RCA 07/07/2025
Residual 80% mid LAD lesion by cardiac cath 07/07/2025
FH premature CAD with h/o calcium score of 66 05/31/23
Recurrent meningioma
s/p right frontal craniotomy and XRT at [place] 2013
s/p repeat right frontal craniotomy at [place] 10/2024
Focal seizures
following with neurology at [place], symptoms are left arm paralysis and paresthesias
h/o right breast lumpectomy and XRT
Echo 08/02/23: EF 55-60%, no WMA, mild MR
Echo 07/07/25: EF 55 to 60%, normal LV size and function, no WMA, no significant change compared to echo 07/2023
ECHO 07/08/25: EF 57%, no regional wall motion abnormalities noted
Plan:
Overall she is doing reasonably well.
She had symptoms that sound like pericarditis post NV, these are somewhat improved, possibly related to colchicine
Still with symptoms that sound like orthopnea. For now we will assume that this is related to volume, though it is possible that ticagrelor is contributing to dyspnea. If so, we should switch to prasugrel.
Will give IV Lasix again x 1. Blood pressure marginal but I think she will tolerate. If she goes home, would favor low-dose of furosemide, perhaps 20 mg Saturday and Saturday.
Based on blood pressure would not start spironolactone, KWESI, etc.
Not sure I would pursue her various symptoms at this time, let things settle out
We will arrange for follow-up PCI in the next week or 2.
If she is feeling well I would not object to discharge later this morning or this afternoon.
Recommended cardiac meds at discharge:
Ticagrelor, 90 mg twice daily.
Ezetimibe 10 mg daily
Aspirin 81 mg a day
Rosuvastatin 20 mg a day
Metoprolol ER 12.5 mg daily
Colchicine 0.3 mg p.o. twice daily x 3 months
Furosemide 20 mg Saturday and Saturday
Please arrange for proBNP and BMP in 5 to 7 days
HPI: Patient came to the ER today with chest pain and cardiology consulted for elevated Troponin. Patient's helps with bulk of HPI. Patient had initial right frontal craniotomy for meningioma in 2013 and had a recurrent craniotomy and
resection 10/2024. Patient's wound didn't heal well superficially and patient has had continued drainage of CSF so she is scheduled to have incision revision procedure at [place] 07/13/25. Also since her last craniotomy patient developed focal seizures
with symptoms of paresthesias and paralysis of her LUE and sometimes face. Patient follows with a neurologist at [place] and is now on Keppra. Patient started with one of her focal seizures yesterday afternoon, but she also had symptoms of central and
right sided chest pain. Symptoms lasted for hours and patient's noted that she was lethargic and not acting herself. This morning patient started with nausea and vomiting and so her called their care team at [place], but didn't feel
comfortable driving her to [place] ER so they came here. Initial ECG was concerning for inferior infarct. Initial Troponin 9.
Progress Note - Software Release Manager
Subjective
Date of Service: July 11, 2025:
65-year-old admitted July 07 with nausea, chest discomfort and inferior ST segment elevation NV with 100% occlusion of the proximal RCA treated with 3 x 34 Medtronic [place] drug-eluting stent. She has 80% mid LAD stenosis and 70% ostial D2
stenosis followed by 60-70% proximal stenosis. Luminal irregularities of ostial circumflex and mild diffuse disease distal. Now with chest discomfort that could be pericardial, Peak troponin 90, EF by echo 57% without regional wall motion
abnormalities
PMH/PSH: Meningioma, treated with craniotomy 2013 and October 2024, CSF leak, plan for neurosurgical procedure for the same, seizures disorder, right breast cancer status post lumpectomy and XRT
Sensation of numbness in the right toe is better, she now has some discomfort along her left lateral thigh, pleuritic substernal discomfort is improved but not resolved, colchicine has been added, still with some dyspnea lying flat.
Current medications:Reviewed, ticagrelor, gabapentin, Keppra 750 twice daily, ezetimibe 10 mg a day, aspirin 81 mg a day, rosuvastatin 20 mg a day, metoprolol ER 12.5 mg daily, pantoprazole, colchicine 0.3 mg twice daily, she received furosemide IV
x 1 yesterday
99/52, pulse 81, respiratory rate 18, afebrile, intake and output -2.2 L, weight is 56.1 kg, which is down 1.1 kg, no distress, lungs are clear neck veins okay, possible click on exam? No murmurs, extremities without clubbing cyanosis or edema
right great intact
Hemoglobin 11.4, white count 8.3, platelets are 271, BUN is 18, creatinine 0. 7
Objective
Labs:
07/11/25 02:45
07/11/25 02:45
Labs
Hgb 11.4 g/dL (12.0-16.0) L 07/11/25 02:45
Hct 33.5 % (37.0-47.0) L 07/11/25 02:45
Plt Count 271 10^3/uL (130-400) 07/11/25 02:45
APTT 20.7 Sec (23.4-35.0) L 07/08/25 06:10
Sodium 138 mmol/L (135-145) 07/11/25 02:45
Potassium 4.0 mmol/L (3.5-5.1) 07/11/25 02:45
BUN 18 mg/dl (7-17) H 07/11/25 02:45
Creatinine 0.7 mg/dL (0.6-1.0) 07/11/25 02:45
Glucose 99 mg/dl (70-99) 07/11/25 02:45
Vital Signs and I&O:
Vital Signs
Temp Pulse Resp BP Pulse Ox
36.8 C 81 18 99/52 96
07/11/25 02:51 07/11/25 08:09 07/11/25 02:51 07/11/25 08:09 07/11/25 02:51
Vital Signs
Temp Pulse Resp BP Pulse Ox
36.8 C 81 18 99/52 96
07/11/25 02:51 07/11/25 08:09 07/11/25 02:51 07/11/25 08:09 07/11/25 02:51
Intake & Output
07/09/25 07/10/25 07/11/25 07/12/25
07:59 07:59 07:59 07:59
Intake Total 1120 / 1120 880 / 880 480 / 480
Output Total 450 / 450 2750 / 2750
Balance 1120 / 1120 430 / 430 -2270 / -2270
Physical Exam
Physical Exam
See above
[2025-07-11] MEDS: LASIX 20 MG IV (09:38)
[2025-07-11] MEDS: KCL 20 MEQ PO (09:38)
--- NOTE | 2025-07-11 09:56 | PTCARENOTE ---
Patient resting in bed, at the bedside. Seen by cardiology and given IV lasix as ordered, saving output in the bathroom. Patient is anxious to have MRI before possible discharge. States she still has numbness and tingling of her right foot,
pedal pulse palpable, trace calf edema. TT to Dr. Montemayor re: MRI order.
--- NOTE | 2025-07-11 11:20 | W.PN.ID1 ---
Date of Service
Date of Service: July 11, 2025
Today's Communication
await MRI brain
Assessment / Plan
Fever - likely resolved
Intermittent CSF leak - no leakage for the last two weeks
chronic extraaxial collection - reportedly unchanged
Allergies: penicillin/ampicillin, erythromycin, sulfa and latex - rash and itching; nitrofurantoin - shortness of breath
- no definite evidence of infection and remains afebrile thus far off of antibiotics
- fevers are occasionally associated with OK
- new mild abdominal tenderness, no BM for a week, has PRN bowel regimen discussed with RN
- complains of progression of new numbness of the right toes to include the foot
- MRI today
- no further fevers and cultures remain negative - will follow clinically off of antibiotics at this time
Chief Complaint
-: Fever
Subjective / Review of Systems
afebrile
bp stable
some LLQ abdominal tenderness, no BM for about 1 week
Vital Signs / Physical Exam
Vital Signs
Vital Signs
Temp Pulse Resp BP Pulse Ox
98.3 F 74 18 99/52 96
07/11/25 09:55 07/11/25 09:00 07/11/25 09:55 07/11/25 08:09 07/11/25 09:55
Physical Exam
Constitutional: No Acute Distress
Cardiovascular: Regular Rate and S1/S2; Negative Murmur or Rub
Pulmonary: Clear and Symmetric; Negative Wheezes or Rales
Gastrointestinal: Soft, Non Tender, Non Distended and Normal Bowel Sounds
Skin: Warm, Dry and Other (eschar on the scalp stable, no drainage); Negative Rash or Jaundice
Objective Data
Lab Data
Lab Results
07/11/25 02:45
07/11/25 02:45
APTT 20.7 Sec (23.4-35.0) L 07/08/25 06:10
Estimated Creat Clear 62 ml/min 07/11/25 02:45
Lactic Acid 1.1 mmol/L (0.7-2.0) 07/08/25 00:44
Total Bilirubin 0.8 mg/dl (0.2-1.3) 07/07/25 12:07
AST 102 U/L (14-36) H 07/07/25 12:07
ALT 29 U/L (0-35) 07/07/25 12:07
Alkaline Phosphatase 77 U/L (38-126) 07/07/25 12:07
Most recent labs reviewed.
Micro Results:
07/07/25 13:18 Blood Culture - Preliminary
Blood/Venous No Growth in 72 hours- Final report to follow
07/07/25 12:36 Blood Culture - Preliminary
Blood/Venous No Growth in 72 hours- Final report to follow
07/07/25 14:57 Urine Culture - Final
Urine NO GROWTH
07/07/25 12:08 Influenza Types A & B (JOHN) - Final
Nasal Swab Negative for Influenza A & B, NAAT
Negative results must be combined with clinical observations
and patient history.
Nucleic Acid Amplification test (NAAT)performed on the
[employer] platform.
[2025-07-11 12:10] VITALS: BP 96/70
--- NOTE | 2025-07-11 13:24 | PTCARENOTE ---
Patient taken for her MRI, waiting for copy of disc and plan is for discharge this afternoon.
--- NOTE | 2025-07-11 14:30 | W.DCSUMMARY ---
Addendum entered and electronically signed by Leander Presley MD 07/11/25 14:41:
stop crestor 10mg HS
Original Note:
Discharge Summary
Discharge Data
Date of Admission: 07/07/25
Date of Discharge: 07/11/25
-
Pending Results: No
Hospital Course
65 F hx of Meningioma brain tumor resection twice in the past decade - Breast cancer with lumpectomy last year - Gamma Knife radiation for meningioma treatmen
Presented with headache vomiting fever along with chest discomfort and found to have a late presentation of an inferior STEMI with [facility] demonstrating multivessel disease. Since this was a inferior STEMI culprit lesion of the RCA was stented and plan
to return to [facility] in the near future as a staged procedure for LAD PCI. Will continue aspirin 81 mg daily for life and Brilinta for at least 12 months of uninterrupted dual antiplatelet therapy given JASON implantation to mitigate the risk of
stent thrombosis. This is not to be stopped for any reason without the guidance of cardiology. Will need outpatient cardiology follow-up to plan for staged LAD PCI as an outpatient after ensuring toleration of dual antiplatelet therapy and after
discussion with neurosurgery. 2D echocardiogram was completed report as below. Was also evaluated by infectious diseases however did not recommend any further antibiotics and recommended to monitor off. If afebrile would not do any other
infectious workup and no antibiotics. Additionally should be noted found to have normocytic anemia without evidence of active bleeding. Will need continued outpatient PCP follow-up. Since started on dual antiplatelet therapy will need to continue
to monitor for bleeding and if present will need to return to the hospital and call PCP for emergent blood work.
Should be noted that she did have right toe/right lower extremity paraesthesias. Discussed case with cardiology, suspect related to access of right groin during the lhc causing nerve injury. MRI was obtained to rule out cva for which there was no
acute abnormality. MRI as below.
LHC
Inferior ST elevations status post cardiac catheterization finding 100% occlusion of the proximal RCA status post successful PTCA and placement of a 3/34 mm Medtronic [place] frontier drug-eluting stent 07/07/2025. During this procedure patient was
also noted to have focal 80% stenosis in the mid LAD just distal to the takeoff of D2. Ostial D2 has a 70% stenosis and a proximal 60 to 70% stenosis. Circumflex artery has mild diffuse disease.
with a 20% ostial stenosis.
CORONARY FINDINGS
Dominance: Right
Left Main Trunk (LMT): Large caliber vessel that gives rise to the LAD and LCx branches and is free of angiographic disease.
Left Anterior Descending Artery (LAD): Large caliber vessel that gives off 2 major diagonal branches as it courses along the anterior inter-ventricular groove before wrapping around the cardiac apex. Mid LAD just distal to the takeoff of D2 has a
focal 80% stenosis just distal to the takeoff of D2. D2 is a small to medium caliber vessel. Ostial D2 has a 70% stenosis and proximal D2 has 60 to 70% stenosis.
Left Circumflex Artery (LCx): Large caliber vessel that gives off 2 major obtuse marginal (OM) branches as it courses along the atrio-ventricular (AV) groove. Ostial left circumflex has a 20% stenosis. There is mild diffuse atherosclerotic plaque.
Right Coronary Artery (RCA): Large caliber dominant vessel that gives rise to the posterior descending artery (RPDA) and postero-lateral ventricular (RPLV) branches distally. The proximal RCA is 100% occluded with LIZET 0.
2d echo
SUMMARY
1. Left ventricular ejection fraction is normal with an ejection fraction of 57 % by Waters's biplane method of discs.
2. Normal left ventricular size, wall thickness and systolic function. No regional wall motion abnormalities are seen.
3. Follow up study performed and compared to 07/07/2025 echo (yesterday) and current study does not have any wall motion abnormality with normal ejection fraction.
4. No regional wall motion abnormalities.
MRI Brain
IMPRESSION:
No suspicious acute intracranial abnormality noted. Postoperative changes as described. Tiny residual focus of enhancement at the operative site likely reflects postoperative change, less likely residual/recurrent tumor although not definitely
excluded. Recommend specific attention on follow-up exams.
Was seen on day of discharge 07/11/2025. No new complaints. No acute overnight events.
NAD
Scleral Anicteric
MMM
No JVD
CTABL
RRR, S1/S2
Soft, NT, ND, BS+
Warm, Dry
AAOx3
Calm
More than 30 minutes spent in discharge including
Final examination of the patient
Summarizing hospital stay
Instructions for continuing care to all relevant caregivers
Preparation of discharge records, prescriptions, and referral forms
Total time spent (in minutes): 33mins
Discharge Plan
-
Patient Disposition: Home (Routine Discharge)
Discharge Diagnosis/Procedures: CAD multivessel disease s/p PCI to RCA, will need LAD pci scheduled
NSTEMI
Anemia - Normocytic
Condition: Good
Diet: As tolerated
Activity: As tolerated
Activity Restrictions/Additional Instructions:
Presented with headache vomiting fever along with chest discomfort and found to have a late presentation of an inferior STEMI with C demonstrating multivessel disease. Since this was a inferior STEMI culprit lesion of the RCA was stented and plan
to return to [facility] in the near future as a staged procedure for LAD PCI. Will continue aspirin 81 mg daily for life and Brilinta for at least 12 months of uninterrupted dual antiplatelet therapy given JASON implantation to mitigate the risk of
stent thrombosis. This is not to be stopped for any reason without the guidance of cardiology. Will need outpatient cardiology follow-up to plan for staged LAD PCI as an outpatient after ensuring toleration of dual antiplatelet therapy and after
discussion with neurosurgery. 2D echocardiogram was completed report as below. Was also evaluated by infectious diseases however did not recommend any further antibiotics and recommended to monitor off. If afebrile would not do any other
infectious workup and no antibiotics. Additionally should be noted found to have normocytic anemia without evidence of active bleeding. Will need continued outpatient PCP follow-up. Since started on dual antiplatelet therapy will need to continue
to monitor for bleeding and if present will need to return to the hospital and call PCP for emergent blood work.
Should be noted that she did have right toe/right lower extremity paraesthesias. Discussed case with cardiology, suspect related to access of right groin during the c causing nerve injury. MRI was obtained to rule out cva for which there was no
acute abnormality. MRI as below.
C
Inferior ST elevations status post cardiac catheterization finding 100% occlusion of the proximal RCA status post successful PTCA and placement of a 3/34 mm Medtronic [place] frontier drug-eluting stent 07/07/2025. During this procedure patient was
also noted to have focal 80% stenosis in the mid LAD just distal to the takeoff of D2. Ostial D2 has a 70% stenosis and a proximal 60 to 70% stenosis. Circumflex artery has mild diffuse disease.
with a 20% ostial stenosis.
CORONARY FINDINGS
Dominance: Right
Left Main Trunk (LMT): Large caliber vessel that gives rise to the LAD and LCx branches and is free of angiographic disease.
Left Anterior Descending Artery (LAD): Large caliber vessel that gives off 2 major diagonal branches as it courses along the anterior inter-ventricular groove before wrapping around the cardiac apex. Mid LAD just distal to the takeoff of D2 has a
focal 80% stenosis just distal to the takeoff of D2. D2 is a small to medium caliber vessel. Ostial D2 has a 70% stenosis and proximal D2 has 60 to 70% stenosis.
Left Circumflex Artery (LCx): Large caliber vessel that gives off 2 major obtuse marginal (OM) branches as it courses along the atrio-ventricular (AV) groove. Ostial left circumflex has a 20% stenosis. There is mild diffuse atherosclerotic plaque.
Right Coronary Artery (RCA): Large caliber dominant vessel that gives rise to the posterior descending artery (RPDA) and postero-lateral ventricular (RPLV) branches distally. The proximal RCA is 100% occluded with LIZET 0.
2d echo
SUMMARY
1. Left ventricular ejection fraction is normal with an ejection fraction of 57 % by Waters's biplane method of discs.
2. Normal left ventricular size, wall thickness and systolic function. No regional wall motion abnormalities are seen.
3. Follow up study performed and compared to 07/07/2025 echo (yesterday) and current study does not have any wall motion abnormality with normal ejection fraction.
4. No regional wall motion abnormalities.
MRI Brain
IMPRESSION:
No suspicious acute intracranial abnormality noted. Postoperative changes as described. Tiny residual focus of enhancement at the operative site likely reflects postoperative change, less likely residual/recurrent tumor although not definitely
excluded. Recommend specific attention on follow-up exams.
Referrals:
[facility] [Outside] - 07/23/25 1:00 pm
Referral Note: Cardiac Rehab Orientation appointment is on July 23 at 1pm.
The Cardiac Rehab gym is located on the first floor of the [facility].
Elgin Benítez DO [Family Provider, [facility]]
Prescriptions:
New
bisacodyl 10 mg Suppository
10 mg FL [id number] PRN (Reason: constipation) Qty: 15 0RF
pantoprazole 40 mg Tablet,Delayed Release (Dr/Ec)
40 mg PO DAILY Qty: 30 0RF
aspirin 81 mg Tablet,Chewable
81 mg PO DAILY Qty: 30 0RF
metoprolol succinate 25 mg Tablet Extended Release 24 Hr
12.5 mg PO DAILY Qty: 30 0RF
colchicine 0.6 mg Tablet
0.3 mg PO BID Qty: 60 0RF
rosuvastatin 20 mg Tablet
20 mg PO QPM Qty: 30 0RF
ticagrelor 90 mg Tablet
90 mg PO BID Qty: 60 0RF
Continued
rosuvastatin 10 MG tablet
10 mg PO QPM
ezetimibe [Zetia] 10 mg Tablet
10 mg PO DAILY
gabapentin 300 mg capsule
600 mg PO HS
levetiracetam 750 mg tablet
750 mg PO BID
clonazepam 0.5 mg Tablet,Disintegrating
0.5 mg PO DAILYPRN PRN (Reason: SEIZURES)
acetaminophen [Tylenol Extra Strength] 500 mg Tablet
1,000 mg PO Q6H PRN (Reason: MILD PAIN)
Discharge Orders:
Discharge Patient (As Directed); Ordered 07/11/25
Ordered By: Leander Presley
Care Plan Goals
Care Plan Goals:
Problem: Readiness for enhanced knowledge related to diagnosis and treatment plan
Goal: Understand your diagnosis and treatment plan needs, including medications if applicable.
Instructions: Know your diagnosis, underlying causes and treatment plan options, including medications if applicable. Consult with your health care team to learn about your diagnosis and treatment plan, including medications if applicable.
Discharge Date and Time
Print Language: KINYARWANDA
--- NOTE | 2025-07-11 15:12 | PTCARENOTE ---
MRI completed and patient ok for discharge home. Reviewed discharge instructions, new medications and follow up appointments with the patient and her and they state their understanding. Patient discharged home with her .
--- NOTE | 2025-07-12 10:10 | PN.CDI ---
CDI
- -
CDI:
Physician Documentation Request
Admit Date: 07/07/25 17:36
Dear Doctor/ PA,
Please review the following and provide your response in the progress notes.
Clinical Indicators:
Pt admitted with Nausea/Vomiting /chest pressure found to have Inferior wall MS
Progress note 07/10, ' ?HFpEF Cardiology started IV Lasix...'
Cardiology Progress note 07/10,' I think there may be an element of HFpEF will treat with IV Lasix. ...-Elevated proBNP 1740 with some mild shortness of breath. Weight overall stable and actually down a few pounds since admission. Lungs clear.
Give 1 dose of IV Lasix 20 mg now....
Please provide further specificity regarding the most likely acuity of CHF you are evaluating, treating or monitoring.
Acute Diastolic CHF
Acute on Chronic Diastolic CHF
Chronic Diastolic CHF
Other ( please specify)
Use of terms such as suspected, likely, concern for, or probable (associated with a specific diagnosis that is being evaluated, monitored, or treated as if it exists) are acceptable and can be coded in the inpatient setting, when documented at the
time of discharge.
Thank you,
Sary Melissa RN
CDI Specialist
[place] [employer]
Please use your independent medical judgment in providing your response.
== END 2025-07-11 15:16 | disposition home or self-care (01) | DRG 321 ==
LOC: IVU 17:36
PROVIDERS: Internal Medicine Cardiovascular Disease; Internal Medicine Interventional Cardiology; Nurse Practitioner Adult Health; Physician Assistant; Physician Assistant Medical; Registered Nurse; Student in an Organized Health Care Education/Training Program; ADMITTING PHYSICIAN Hospitalist; ATTENDING PHYSICIAN Hospitalist; CONSULT PHYSICIAN Internal Medicine Cardiovascular Disease; CONSULT PHYSICIAN Student in an Organized Health Care Education/Training Program; EMERGENCY PHYSICIAN Student in an Organized Health Care Education/Training Program; FAMILY PHYSICIAN Family Medicine
PROC: B240ZZ3 Ultrasonography of Single Coronary Artery, Intravascular (ICD-10-PCS; 2025-07-07)
PROC: 4A023N8 Measurement of Cardiac Sampling and Pressure, Bilateral, Percutaneous Approach (ICD-10-PCS; 2025-07-07)
PROC: 027034Z Dilation of Coronary Artery, One Artery with Drug-eluting Intraluminal Device, Percutaneous Approach (ICD-10-PCS; 2025-07-07)
PROC: B2111ZZ Fluoroscopy of Multiple Coronary Arteries using Low Osmolar Contrast (ICD-10-PCS; 2025-07-07)
DX: I21.4 Non-ST elevation (NSTEMI) myocardial infarction (principal); I50.31 Acute diastolic (congestive) heart failure; E87.20 Acidosis, unspecified; I31.9 Disease of pericardium, unspecified; I25.10 Atherosclerotic heart disease of native coronary artery without angina pectoris; R50.9 Fever, unspecified; I95.9 Hypotension, unspecified; D64.9 Anemia, unspecified; E78.5 Hyperlipidemia, unspecified; R56.9 Unspecified convulsions; R00.1 Bradycardia, unspecified; I49.1 Atrial premature depolarization; I07.1 Rheumatic tricuspid insufficiency; F41.9 Anxiety disorder, unspecified; S34.6XXA Injury of peripheral nerve(s) at abdomen, lower back and pelvis level, initial encounter; Y84.0 Cardiac catheterization as the cause of abnormal reaction of the patient, or of later complication, without mention of misadventure at the time of the procedure; R20.2 Paresthesia of skin; Z11.52 Encounter for screening for COVID-19; Z86.018 Personal history of other benign neoplasm; Z85.3 Personal history of malignant neoplasm of breast; Z82.49 Family history of ischemic heart disease and other diseases of the circulatory system
CPT/HCPCS: 70450; 70553; 71275; 80048; 80053; 80061; 81003; 81015; 82728; 83036; 83540; 83550; 83605; 83690; 83880; 84484; 85014; 85018; 85025; 85027; 85347; 85730; 86803; 87040; 87086; 87502; 87811; 92978; 93005; 93306; 93308; 93460; 96361; 96374; 96375; 99152; 99153; 99291; A9575; C1725; C1753; C1760; C1769; C1874; C1894; C9600; Q9967

== ENCOUNTER 2025-07-14 08:27 | Inpatient (IN) | payer OTHER, SELFPAY ==
[2025-07-12] VITALS (11 sets, daily range): BP systolic 125–145; BP diastolic 58–74; BMI 23.1
[2025-07-12 14:55] LABS: Hematocrit 36.0 % (37.0-47.0); Hemoglobin 12.7 g/dL (12.0-16.0); Mean Corp Hgb Conc. 35.3 g/dL (33.0-37.0); Mean Corpuscular Volume 86.7 fL (81.0-99.0); Nucleated Red Blood Cells % 0 %; Platelet Count 320 10^3/uL (130-400); Red Cell Dist. Width 11.9 % (11.5-14.5)
[2025-07-12 15:26] LABS: Blood Urea Nitrogen 30 mg/dl (7-17); Calcium 9.4 mg/dl (8.4-10.2); Carbon Dioxide 25 mmol/L (22-30); Chloride 105 mmol/L (98-107); Glucose 95 mg/dl (70-99); Sodium 137 mmol/L (135-145); eGFR > 60.00
--- NOTE | 2025-07-12 16:31 | ED.GENMED ---
History of Present Illness
General
Chief Complaint: Chest Pain
Time Seen by Provider: 07/12/25 14:37
Nursing documentation reviewed up to this point in time: agreed with
History of Present Illness
History of Present Illness:
65-year-old female presents to the ER for further evaluation of chest pressure and feeling of shortness of breath. Patient was admitted to the hospital last week and was diagnosed with a heart attack. She had stenting in her right coronary artery
and was advised that she would likely need to have stenting in her left coronary artery this week. Patient was discharged yesterday and admits that she was still having discomfort when she was discharged. She feels as though it has gotten worse
throughout the day prompting return to the ER today. Patient denies peripheral edema. She has been eating and drinking. She denies fevers. She denies pain with inspiration. She also has noted redness to her left upper extremity today.
Past History
Past History
ED Past Medical History: Other (Fibroids, diverticulosis)
ED Past Surgical History: Other (Neurosurgery at [facility] 2 resected meningioma on February 22.)
Social History
Tobacco: Non-smoker
Alcohol: Occasional
Drug: None
Personal:
Living: with family
Employment: Not employed
Family History
Family History: Other (Noncontributory)
Review of Systems
Review of Systems
Allergies reviewed?: Yes
Phy Exam
Physical Exam
Physical Exam:
Patient is awake, alert, appears fatigued but in no acute distress, head is NCAT, PERRL, EOMI mucous membranes moist, conjunctiva pink, heart regular rate and rhythm without murmurs or ectopy, lungs are clear to auscultation without wheezes rales or
rhonchi, no JVD, abdomen is soft and nontender on palpation, extremities without edema though multiple healing bruises, left upper extremity with linear erythema and blanching warmth present on the anterior upper arm, no palpable cord, GCS is 15, 2+
DP pulses present symmetric bilateral feet
Scores
Heart Score for Chest Pain Patients
STEMI patient?: No
History: Moderately Suspicious
ECG: Normal
Age: >45 - <65 years
Risk Factors: >/= 3 Risk Factors or History of CAD
Troponin: >/= 3 x Normal Limit
Heart Score for Chest Pain Patients: 6
Heart Score Risk: 20.3% MACE over next 6 weeks
Course
Orders/Labs/Results
Orders:
Orders
07/12/25 13:45
Electrocardiogram (*1) Urgent
Reason for Study: Chest Pain
EKG- Treatment ONCE
07/12/25 14:44
CR Chest - 2 Views Urgent
Comment:
Reason For Exam: chest pain
07/12/25 14:46
Basic Metabolic Panel Urgent
Complete Blood Count/With Diff Urgent
07/12/25 16:07
Troponin I Urgent
07/12/25 16:26
Periph Venous Upr Ext Left US [US Periph Venous UPPER Ext LT] Urgent
Comment:
Reason For Exam: pain
07/12/25 17:16
Echo Follow-up Study Routine
Reason for Study: limited echo to assess for pericardial effusion
07/12/25 17:54
Admit/Transfer Patient As Directed
Co-Sign Provider:
Level of Care: Observation services
Assign to:: IVU
Physician / Group: Htay
Diagnosis: Chest Pain
PRN Pain Medication Management As Directed
May give lesser potent ordered pain med per pt: Yes
preference::
Protocol:: Medication orders for pain may be administered in a
manner that supports deferring to patient preference
when the pt is:
- Requesting an ordered lesser potent pain medication.
Least to most potent pain medications are defined
as: acetaminophen < NSAID < tramadol < opioids
(morphine, oxycodone, hydromorphone).
- Requesting a lesser dose of the same medication IF
ORDERED.
- Requesting a less intrusive route of administration
if both routes are prescribed by the provider (PO <
IV).
07/12/25 17:56
Code Status As Directed
Resuscitation Status: Full Code
07/12/25 20:00
Levetiracetam [Keppra] 750 mg PO BID
07/12/25 22:00
Troponin I Q6H
07/13/25 04:00
Troponin I Q6H
07/13/25 Breakfast
NPO
Allow oral meds: Yes
Allow clear liquids: No
Abnormal Lab Results
07/12/25 07/12/25
14:46 16:07
RBC 4.15 L 10^6/uL
(4.20-5.40)
Hct 36.0 L %
(37.0-47.0)
Absolute Monos (auto) 0.8 H 10^3/uL
(0.1-0.6)
BUN 30 H mg/dl
(7-17)
Troponin I 5.430 H* ng/ml
07/12/25 14:46
07/12/25 14:46
Troponin significantly elevated, however this is improved compared to 37 from July 08. Hemoglobin within normal limits. Creatinine preserved
Vital Signs
Initial and Last Documented VS:
Initial Vital Signs
Temp Pulse Resp Pulse Ox
97.4 F 76 16 98
07/12/25 13:51 07/12/25 13:51 07/12/25 13:51 07/12/25 13:51
Last Documented Vital Signs
Temp Pulse Resp BP Pulse Ox
97.4 F 79 15 145/69 99
07/12/25 13:51 07/12/25 19:00 07/12/25 16:45 07/12/25 19:00 07/12/25 18:30
MDM/Problems Addressed
Differential Diagnosis Includes:
Differential diagnosis to consider but not limited to Tracy syndrome, ACS, arrhythmia, thrombophlebitis along with other etiologies considered
Chronic conditions affecting care:
CAD, hyperlipidemia, anxiety, meningioma, breast cancer
*Radiology
Radiology exam reviewed: preliminary read by ED provider (I dependently viewed interpreted two-view chest x-ray showing no acute process, no infiltrate. I reviewed radiology interpretation which is in agreement) and radiology read reviewed (I
reviewed left upper extremity ultrasound result with the radiologist showing occlusive thrombus in the cephalic vein)
*Pulse Oximetry
SaO2: 99
Oxygen Mode of Delivery: Room air
Patient hypoxic: no
*EKG
Interpreted by ED Provider?: Yes (I independently viewed and interpreted twelve-lead EKG showing normal sinus rhythm, rate 73, leftward axis, T wave inversions inferiorly, no ST elevations, this is an abnormal tracing with evidence of inferior
infarct, lower to prior from 07/10/2025)
*Forensics Team Director Interpretation
Rate: normal (I independently viewed and interpreted rhythm strip showing normal sinus rhythm, no ectopy)
*Critical Care Note
Total Time (30-74mins, 75-104mins- exclusive of procedures): Not Applicable
Update Note
Update Note:
Patient declined any need for analgesia at time of interview. Vital signs are within normal limits. She is not hypoxic. I discussed with her plan for screening labs and ultrasound of left upper extremity to rule out DVT/phlebitis from IV
placement.
I reviewed patient presentation and today's lab results with on-call system development manager, Dr. Tatum who would agree with plan for observation. I reviewed patient presentation with the hospitalist who accepts patient for admission.
ED Attending Note
-
Portions of this chart may have been created with voice recognition software.� Occasional wrong word or��sound alike� substitutions may have occurred due to the inherent limitations of voice recognition software.
Discharge Plan
Departure
Patient Disposition: Admit
Date of Disposition: 07/12/25
Time of Disposition: 17:37
Presentation/result/management discussed w/ accepting MD/DO: Hospitalist
Discharge Problem:
Chest pain, Elevated troponin I level, Acute thrombosis of superficial veins of left upper extremity
Interventions
Interventions:
*Risk Screen - Suicide Last Done: 07/12/25 13:51
*General Assessment Last Done: 07/12/25 13:51
*Neglect/Abuse Screening Last Done: 07/12/25 13:51
*ED COVID-19 Vaccine History Last Done: 07/12/25 13:51
*ED Influenza Vaccine History Last Done: 07/12/25 13:51
[facility] Fall Risk Assessment Tool Last Done: 07/12/25 14:50
ED- Cardiac Assessment Last Done: 07/12/25 14:50
[2025-07-12 16:42] LABS: Troponin I 5.430 ng/ml
--- NOTE | 2025-07-12 17:11 | W.PN.CARDCBS ---
Addendum entered and electronically signed by Mamie Bernardo DO 07/13/25 02:12:
I saw and examined the patient.
The Distribution Agent's note was reviewed and I agree with the note.
Comment: Patient seen and examined with cardiac PA in ED bed 8 along with her . Patient familiar with me from last hospitalization, discharged 07/11/2025. She presents back with concerns for ongoing chest discomfort/tightness and shortness
of breath that has been present since last admission. She denies fevers or chills. She denies palpitations, dizziness, syncope or near syncope. She does report pain in her left upper arm with a new rash. She also has bruising along right radial
cath site. No groin pain. She has been compliant with her medications including aspirin and Brilinta.
GEN: No distress, awake, alert, oriented x3
HEENT: mmm
LUNGS: Bronchovesicular breath sounds, clear bilaterally
CV: Regular. Positive S1-S2. No murmurs.
EXT: No edema. Positive ecchymosis without hematoma right radial. Right groin site without hematoma. Nonblanching nonpruritic focal rash on the inner portion of her left bicep.
Plan:
Medically complex 65-year-old female with readmission for ongoing concerns of chest discomfort, shortness of breath and fatigue with left arm pain and rash after discharge yesterday 07/11/2025. As you know she was admitted on 07/07/2025 with late
presenting inferior wall CT and a peak troponin of 90.9 status post 3 mm Marion drug-eluting stent to 100% proximal occlusion of the RCA with Post CT pericarditis. She also has a residual 80% mid LAD for a staged intervention, date to be determined.
-Doubt acute ACS or stent complication. Symptoms have been ongoing since CT and likely related to ongoing post CT pericarditis.
- Troponin downtrending, down to 5.4 on 07/12.
-Twelve-lead EKG sinus rhythm with inferior infarct. No acute ischemic changes.
- Continue colchicine. Will hold off on NSAIDs at this time
- Will check limited echo to assess for pericardial effusion
- She has been compliant with her Brilinta and aspirin. If continues with SOB, could consider switching Brilinta to alternative.
-Continue ezetimibe and rosuvastatin
-Continue metoprolol 12.5 mg daily
- She appears euvolemic;Continues on Lasix 20 mg MWF. Weight down 2 pounds compared to yesterday.
- Creatinine stable at 0.7.
- Will make n.p.o. and will discuss in AM with interventional cardiology timing for staged PCI, possibly tomorrow, or later this week.
Left upper extremity pain/swelling and rash on the inner portion of her left arm.
-She has a limb restriction on her right side secondary to prior breast cancer and I agree with the ER plan for upper extremity duplex.
History of recurrent meningioma status post right frontal craniotomy and radiation in 2013 and repeat craniotomy in October 2024 with CSF leak previously planned for repair on 07/13/2025 which was canceled.
Will follow with you.
Original Note:
Today's Communication / Plan
-
NPO in AM, timing of staged PCI TBD. will discuss w/ interventional cardiology
Continue aspirin, brilinta
Continue colchicine for post-CT pericarditis
Check limited echo
Impression / Plan
-
PCP: Dr. Benítez
Card: Dr. Leslie Anglin
Neurosurgeon: Dr. Hussein Biggs Franklin
Impression:
Presented with continuing chest pain, SOB 07/12/2025
Admitted with chest pain and elevated Troponin 07/07/25, discharged 07/11/2025
Late presentation of acute IWMI, peak troponin 90.9
CAD
s/p 3 mm Yusuf JASON to 100% proximal occlusion of the RCA 07/07/2025
Residual 80% mid LAD lesion by cardiac cath 07/07/2025
FH premature CAD with h/o calcium score of 66 05/31/23
Recurrent meningioma
s/p right frontal craniotomy and XRT at [facility] 2013
s/p repeat right frontal craniotomy at [facility] 10/2024
Focal seizures
following with neurology at [facility], symptoms are left arm paralysis and paresthesias
h/o right breast lumpectomy and XRT
Echo 08/02/23: EF 55-60%, no WMA, mild MR
Echo 07/07/25: EF 55 to 60%, normal LV size and function, no WMA, no significant change compared to echo 07/2023
ECHO 07/08/25: EF 57%, no regional wall motion abnormalities noted
Echo 07/12/2025: Study pending
Plan:
- Recent admission with acute IWMI 07/07/2025 to 07/11/2025. s/p PCI of RCA with plan for staged intervention of LAD lesion as outpatient.
- Continued with chest pain and shortness of breath overnight, similar to what she was experiencing during her admission following PCI, so presented back to ER.
- Troponin downtrending, down to 5.4 on 07/12.
- She continues on colchicine for suspected pericarditis post CT. Did discuss that this will cause some chest discomfort.
- Will check limited echo to assess for pericardial effusion
- She has been compliant with her Brilinta and aspirin. If continues with SOB, could consider switching Brilinta to alternative.
- Continues on Lasix 20 mg MWF. Volume status appears stable. Weight down 2 pounds compared to yesterday.
- Creatinine stable at 0.7.
- Will make n.p.o. and will discuss in AM with interventional cardiology timing for staged PCI, possibly tomorrow, or later this week.
- Continue Metoprolol 102.5mg daily. BP stable.
- Continue rosuvastatin and Zetia.
- Continues to note some tingling in her toes as well as soreness and rash on her left arm. Continue to follow. UE US ordered by ER physician.
HPI: Patient came to the ER today with chest pain and cardiology consulted for elevated Troponin. Patient's helps with bulk of HPI. Patient had initial right frontal craniotomy for meningioma in 2013 and had a recurrent craniotomy and
resection 10/2024. Patient's wound didn't heal well superficially and patient has had continued drainage of CSF so she is scheduled to have incision revision procedure at [facility] 07/13/25. Also since her last craniotomy patient developed focal seizures
with symptoms of paresthesias and paralysis of her LUE and sometimes face. Patient follows with a neurologist at [facility] and is now on Keppra. Patient started with one of her focal seizures yesterday afternoon, but she also had symptoms of central and
right sided chest pain. Symptoms lasted for hours and patient's noted that she was lethargic and not acting herself. This morning patient started with nausea and vomiting and so her called their care team at [facility], but didn't feel
comfortable driving her to [facility] ER so they came here. Initial ECG was concerning for inferior infarct. Initial Troponin 9.
Progress Note - Owner Manager
Subjective
Date of Service: July 12, 2025
Continues w/ chest tightness, SOB. Also w/ L arm soreness
Objective
Labs:
07/12/25 14:46
07/12/25 14:46
Labs
Hgb 12.7 g/dL (12.0-16.0) 07/12/25 14:46
Hct 36.0 % (37.0-47.0) L 07/12/25 14:46
Plt Count 320 10^3/uL (130-400) 07/12/25 14:46
Sodium 137 mmol/L (135-145) 07/12/25 14:46
Potassium mmol/L (3.5-5.1) 07/12/25 14:46
BUN 30 mg/dl (7-17) H 07/12/25 14:46
Creatinine 0.7 mg/dL (0.6-1.0) 07/12/25 14:46
Glucose 95 mg/dl (70-99) 07/12/25 14:46
Troponins
07/12/25 07/12/25
14:46 16:07
Troponin I Cancelled 5.430 H*
Vital Signs and I&O:
Vital Signs
Temp Pulse Resp BP Pulse Ox
97.4 F 75 20 139/61 99
07/12/25 13:51 07/12/25 16:15 07/12/25 16:15 07/12/25 16:00 07/12/25 16:34
Vital Signs
Temp Pulse Resp BP Pulse Ox
97.4 F 75 20 139/61 99
07/12/25 13:51 07/12/25 16:15 07/12/25 16:15 07/12/25 16:00 07/12/25 16:34
Physical Exam
Physical Exam
GEN: No distress, awake, alert, oriented x3
HEENT: anicteric, mmm
LUNGS: no wheezes
CV: SR on tele
EXT: No clubbing, cyanosis, or edema
NEURO: Gross non-focal
SKIN: area of erythema along LUE
--- NOTE | 2025-07-12 18:00 | HPS.HSE ---
Family Physician
-
Family Physician: Elgin Benítez
Chief Complaint
-
Persistent chest heaviness and shortness of breath
History of Present Illness
Patient is a 65 y/o female who was recently admitted to [facility] from 07/07 to 07/11 following a late presentation of an inferior wall NE. During that hospitalization she was found to have multi-vessel coronary artery disease and received a stent to the
RCA, with plans for stage PCI of residual LAD lesion. Patient reports persistent chest heaviness and shortness of breath. She also notes new onset pain in the left upper extremity associated with some slight erythema. She denies lower extremity
edema.
Medical History
Past Medical History
Past Medical History: Reports Other
Additional Past Medical History:
Multi-Vessel Coronary Artery Disease
Meningioma s/p Resection x 2 and Radiation
Focal Aware Seizure
Anxiety
Spinal Stenosis
Breast Cancer
Past Surgical History: Reports Other
Additional Past Surgical History:
Craniotomy / Meningioma Resection - 2013 and 2024
Right Lumpectomy
Social History
Tobacco: Non-smoker
Alcohol: None
Drug: None
Personal:
Living: With Family
Family History
Family History: Not pertinent
Allergies / Home Medications
Allergies reflects when Allergies were last updated in [employer].
Home Medications with original date entered in [employer]
Allergy/Medication List:
Allergies
Allergy/AdvReac Type Severity Reaction Status Date / Time
ampicillin Allergy Rash Verified 07/12/25 13:54
erythromycin base Allergy RASH,ITCHIN Verified 07/12/25 13:54
(Erythromycin Base) G
Latex, Natural Rubber Allergy Rash-nose Verified 07/12/25 13:54
red and
itchy
nitrofurantoin (From Allergy Shortness Verified 07/12/25 13:54
Macrobid) of Breath
nitrofurantoin Allergy Shortness Verified 07/12/25 13:54
macrocrystalline (From of Breath
Macrobid)
Penicillins Allergy RASH,ITCHIN Verified 07/12/25 13:54
G
Sulfa (Sulfonamide Allergy ITCHING,JEFERSON Verified 07/12/25 13:54
Antibiotics) (Sulfa H
(Sulfonamides))
Home Medications
ezetimibe 10 mg tablet (Zetia) 10 mg PO DAILY High Cholesterol 06/16/24
clonazepam 0.5 mg disintegrating tablet 0.5 mg PO DAILYPRN PRN SEIZURES 07/07/25
gabapentin 300 mg capsule 600 mg PO HS Neurological Condition 07/07/25
levetiracetam 750 mg tablet 750 mg PO BID Seizures 07/07/25
aspirin 81 mg chewable tablet 81 mg PO DAILY #30 tabs 07/11/25
colchicine 0.6 mg tablet 0.3 mg (1/2 x 0.6 mg) PO BID #60 tabs 07/11/25
metoprolol succinate 25 mg tablet,extended release 24 hr 12.5 mg (1/2 x 25 mg) PO DAILY #30 tabs 07/11/25
pantoprazole 40 mg tablet,delayed release 40 mg PO DAILY #30 tabs 07/11/25
ticagrelor 90 mg tablet 90 mg PO BID #60 tabs 07/11/25
rosuvastatin 20 mg tablet 20 mg PO QPM High Cholesterol 07/12/25
Review of Systems
-
A 12 point ROS was completed and negative except as noted: Yes
Constitutional: Denies Fever or Chills
Respiratory: Reports Trouble Breathing; Denies Cough
Cardiac: Reports Chest Pain
Physical Exam
Vital Signs
Vital Signs
Temp Pulse Resp BP Pulse Ox
97.4 F 78 15 142/74 99
07/12/25 13:51 07/12/25 17:48 07/12/25 16:45 07/12/25 17:48 07/12/25 17:48
Physical Exam
General: Comfortable and Conversant
HEENT: Anicteric and Moist mucous membranes
Respiratory: Clear and Non Labored Respirations
Cardiac: S1/S2 and Regular Rhythm; No Murmur
GI: Soft and Non Distended
Rectal: Deferred by Provider
Musculoskeletal: No Clubbing, No Cyanosis and No Edema
Skin: Warm, Dry and Other (Slight linear erythema left upper extremity)
Neuro: Awake, Alert, Oriented and Nonfocal/grossly intact
Psych: Calm
Laboratory Results
-
07/12/25 14:46
07/12/25 14:46
Laboratory Results
Total Bilirubin Cancelled 07/12/25 14:46
AST Cancelled 07/12/25 14:46
ALT Cancelled 07/12/25 14:46
Alkaline Phosphatase Cancelled 07/12/25 14:46
Troponin I 5.430 ng/ml H* 07/12/25 16:07
Peripheral Vascular US:
Occlusive thrombus within the left cephalic vein within the proximal, mid, and distal aspect of the left upper arm, extending to the antecubital region.
Left internal jugular, subclavian, axillary, brachial, and basilic veins appear patent.
Data Reviewed
-
Ultrasound: Report Reviewed by me
Lab Data: Labs Reviewed by me
Old Records: Reviewed
Impression/Plan
-
Persistent Chest Heaviness / Shortness of Breath, possibly related to residual LAD stenosis vs post-NE pericarditis
-Appreciate Cardiology consult
-Trend troponin
-Recheck echocardiogram
-NPO after midnight for possible cardiac cath pending evaluation by admissions counselor
-Continue aspirin and ticagrelor
-Continue colchicine
Occlusive Thrombus Left Cephalic Vein
-Trial usage of heat therapy
-Unable to use NSAIDs while on aspirin and ticagrelor
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
-Continue aspirin and ticagrelor
-Continue rosuvastatin and ezetimibe
Focal Aware Seizures
-Continue levetiracetam
--- NOTE | 2025-07-12 18:12 | W.PN.UPDATE ---
Update Note
Progress Note Update
This note serves as an addendum to the H&P by director of sales marketing Mukul ROBB
HPI�
65F with recent inferior STEMI with LHC demonstrating MV CAD, stented culprit lesion of the RCA and plan to return to [facility] in the near future as a staged procedure for LAD PCI.
PMHX: Meningioma s/p resection ( 2014 and october 2024) , focal Sz disorder , Breast CA, HLD
- evaluation for chest pressure and feeling of shortness of breath.
- discharged yesterday and admits that she was still having discomfort when she was discharged and gotten worse throughout the day prompting return to the ER today.
- denies peripheral edema
- denies fevers
- noted redness to her left upper extremity today.
PHX; as above
Relevant VS
Temp Pulse Resp BP Pulse Ox
97.4 F 78 15 142/74 99
07/12/25 13:51 07/12/25 17:48 07/12/25 16:45 07/12/25 17:48 07/12/25 17:48
PE
Gen: NAD , not toxic
HEENT: anicteric
Neck: supple
Lungs:CTA
Cor:RRR S1 S2
Abdomen:�benign
SILICA FILTER OPERATOR: AAO3, grossly normal
MS:Lt UEX linear erythema
Relevant Data
07/11/25 07/12/25
02:45 14:46
WBC 8.3 9.0
Hgb 11.4 L 12.7
Sodium 137
BUN 30 H
Creatinine 0.7
eGFR > 60.00
07/08/25 07/12/25 07/12/25
06:10 16:07 22:00
Troponin I 37.900 H* 5.430 H* Pending
EKG
NORMAL SINUS RHYTHM
MINIMAL VOLTAGE CRITERIA FOR LVH, MAY BE NORMAL VARIANT ( R in aVL )
INFERIOR INFARCT (CITED ON OR BEFORE 07-Jul-2025)
ABNORMAL ECG
WHEN COMPARED WITH ECG OF 10-Jul-2025 10:07,
CRITERIA FOR ANTERIOR INFARCT ARE NO LONGER PRESENT
NONSPECIFIC T WAVE ABNORMALITY HAS REPLACED INVERTED T WAVES IN ANTERIOR LEADS
Confirmed by MD CHAYA, BATSHEVA Alanis ([id number]) on 07/12/2025 2:41:30 PM
L UEx US
There is occlusive thrombus within the left cephalic vein within the proximal, mid, and distal aspect of the left upper arm, extending to the antecubital region.
The left internal jugular, subclavian, axillary, brachial, and basilic veins appear patent.
CXR
No evidence of active cardiopulmonary disease.
07/08/25 TTE
1. Left ventricular ejection fraction is normal with an ejection fraction of 57 % by Waters's biplane method of discs.
2. Normal left ventricular size, wall thickness and systolic function. No regional wall motion abnormalities are seen.
3. Follow up study performed and compared to 07/07/2025 echo (yesterday) and current study does not have any wall motion abnormality with normal ejection fraction.
4. No regional wall motion abnormalities.
Last hospitalist admission: 07/07/25 - 07/11/25
DC DX: inferior STEMI with [facility] demonstrating multivessel disease. Since this was a inferior STEMI culprit lesion of the RCA was stented and plan to return to [facility] in the near future as a staged procedure for LAD PCI.
ASSESSMENT & PLAN
Pending Rx reconciliation
Persistent Chest Heaviness / Shortness of Breath, possibly related to residual LAD stenosis vs post-MT pericarditis
- Significantly trending down TPNI
- Trend TPNI
- repeat TTE
- NPO after midnight for possible [facility] cardiac cath pending evaluation by quarter backer
- c/w ASA and ticagrelor
- c/w colchicine since last admission for post-MT pericarditis
Occlusive Thrombus Left Cephalic Vein suspect line realted
-Trial usage of heat therapy
-Unable to use NSAIDs while on aspirin and ticagrelor
Recent Inferior WallMI s/p JASON to RCA on 07/07/25
- on aspirin and ticagrelor
- on rosuvastatin and ezetimibe
Focal Aware Seizures
- on JAMMER HOOKER levetiracetam
DVT Px: SCD
Full code
OBS TLM
[2025-07-12] MEDS: KEPPRA 750 MG PO (19:10)
[2025-07-12] MEDS: BRILINTA 90 MG PO (21:21)
[2025-07-12] MEDS: COLCHICINE 0.3 MG PO (21:21)
[2025-07-12] MEDS: CRESTOR 20 MG PO (21:21)
[2025-07-12] MEDS: NEURONTIN 600 MG PO (21:21)
--- NOTE | 2025-07-12 21:51 | PTCARENOTE ---
Received patient from Gabriela in the ED. SR on the monitor, HR in the 70s, VSS on room air. No chest pain at this time, LUE with redness, heating pad applied. Oriented pt to room and plan of care, pt verbalizes understanding. NPO at midnight. Call
esparza within reach.
[2025-07-12] MEDS: ZETIA 10 MG PO (22:46)
[2025-07-12 23:09] LABS: Troponin I 4.340 ng/ml
[2025-07-13 04:10] VITALS: BP 133/58
[2025-07-13 04:21] VITALS: BMI 23.0
[2025-07-13 05:00] LABS: Blood Urea Nitrogen 23 mg/dl (7-17); Calcium 9.0 mg/dl (8.4-10.2); Carbon Dioxide 27 mmol/L (22-30); Chloride 108 mmol/L (98-107); Estimated Creatinine Clearance 72 ml/min; Glucose 95 mg/dl (70-99); Potassium 4.3 mmol/L (3.5-5.1); Sodium 138 mmol/L (135-145); eGFR > 60.00
[2025-07-13 05:13] LABS: Troponin I 3.970 ng/ml
[2025-07-13 07:59] VITALS: BP 128/71
[2025-07-13] MEDS: PROTONIX 40 MG PO (08:14)
[2025-07-13] MEDS: TOPROL XL 12.5 MG PO (08:14)
[2025-07-13] MEDS: LOW STRENGTH ASPIRIN 81 MG PO (08:15)
[2025-07-13] MEDS: BRILINTA 90 MG PO ×2 (08:15→19:44)
[2025-07-13] MEDS: COLCHICINE 0.3 MG PO ×2 (08:16→19:44)
[2025-07-13] MEDS: KEPPRA 750 MG PO ×2 (08:16→19:44)
--- NOTE | 2025-07-13 09:19 | PTCARENOTE ---
Pt c/o chest heaviness 11/12, which she said she had is but getting a little worse this morning. She is also very anxious. BP is 128/71. SR 60's. Ester Cunningham aware and is coming to see Pt, EKG obtained. Pt discomfort subsided on its own
--- NOTE | 2025-07-13 09:42 | W.PN.CARDCBS ---
Addendum entered and electronically signed by Kami Shearer MD 07/13/25 17:53:
I saw and examined the patient.
The Servomechanism Designer's note was reviewed and I agree with the note.
Comment: Patient is known to me from her recent admission for a late presenting inferior CT. She returned back yesterday with ongoing recurrent chest discomfort and was found to have a left occlusive thrombus within the left cephalic vein within
the proximal, mid and distal aspect of the left upper arm, extending to the antecubital region. Bilateral lower extremity Dopplers did not show any evidence of lower extremity DVTs.
She had been chest pain-free with troponins trending down.
On exam, patient appears very frustrated and fatigued, otherwise in no acute distress, regular rate, normal S1 and S2, no murmurs, rubs or gallops, lungs are clear to auscultation bilaterally, elevated JVD, abdomen is soft, nontender, nondistended
with active bowel sounds, warm extremities without significant edema.
Echocardiogram repeated today showed mildly reduced LV systolic function with LVEF of 40 to 45% with global hypokinesis and regional variations, mild MR and TR with trivial pericardial effusion. Normal RV size and function.
Recommendations:
1. Extensive discussion was had with patient and at bedside explaining reasoning for delaying heart catheterization today until we had ruled out lower extremity DVTs and make sure that she is tolerating IV heparin along with the aspirin and
Plavix for recent RCA PCI given her prior craniotomy history. IV heparin has been initiated without a bolus.
2. Given off-and-on recurrent chest discomfort with mild troponin elevation, plan for tentative heart catheterization and possible staged PCI to the LAD in the next 24 to 48 hours as long as nothing unexpected, and patient seems to be tolerating
triple therapy for now.
3. In the interim we will continue with optimization of goal-directed medical therapy.
4. Educated in regards to importance of a high-fiber Mediterranean type diet and pursuing cardiac rehab as an outpatient when she is stable for discharge.
5. Explained all of the above to at bedside who relayed understanding.
Kami Shearer MD, FACC, [facility]
Total time spent: 52 minutes
Original Note:
Today's Communication / Plan
-
Bilateral lower extremity ultrasound, urgent
Follow-up echo study
Add on proBNP
Start IV heparin, no bolus if echo without significant pericardial effusion
NPO, will need to discuss timing of cath
Impression / Plan
-
PCP: Dr. Benítez
Card: Dr. Leslie Anglin
Neurosurgeon: Dr. Hussein Biggs, [facility]
Impression:
Presented with continuing chest pain, SOB 07/12/2025
Admitted with chest pain and elevated Troponin 07/07/25, discharged 07/11/2025
Late presentation of acute IWMI, peak troponin 90.9
CAD
s/p 3 mm [place] JASON to 100% proximal occlusion of the RCA 07/07/2025
Residual 80% mid LAD lesion by cardiac cath 07/07/2025
FH premature CAD with h/o calcium score of 66 05/31/23
Recurrent meningioma
s/p right frontal craniotomy and XRT at [facility] 2013
s/p repeat right frontal craniotomy at [facility] 10/2024
Focal seizures
following with neurology at [facility], symptoms are left arm paralysis and paresthesias
h/o right breast lumpectomy and XRT
Echo 08/02/23: EF 55-60%, no WMA, mild MR
Echo 07/07/25: EF 55 to 60%, normal LV size and function, no WMA, no significant change compared to echo 07/2023
ECHO 07/08/25: EF 57%, no regional wall motion abnormalities noted
Echo 07/12/2025: Study pending
Plan:
- Medically complex
- Recent admission with acute IWMI 07/07/2025 to 07/11/2025. s/p PCI of RCA with plan for staged intervention of LAD lesion as outpatient.
- Presented back 07/12 due to constant chest pain and shortness of breath, similar to symptoms leading to last admission
- Troponin continues to downtrend
- Was noted to have left upper extremity swelling and underwent ultrasound which showed occlusive thrombus involving left cephalic vein
- She is also with right lower extremity swelling as well as numbness and tingling, and is ordered for urgent bilateral lower extremity ultrasound this morning.
- check proBNP in addition. on po lasix 20mg MWF as OP
- She did undergo chest CTA 07/07 which was without evidence of PE
- will plan to start IV heparin, no bolus so long as echo without significant effusion
- Continue outpatient aspirin, Brilinta. If she requires OAC as expected given above findings, will likely need to transition her Brilinta to Plavix. This will also further complicate things from a neurosurgical standpoint
- She is n.p.o., as we were initially discussing plan for cath today for LAD PCI, however as now with upper extremity and possible lower extremity DVT, may need to hold off and discuss timing with primary service
- Continue low-dose Toprol, Crestor, Zetia
- She continues on colchicine for suspected pericarditis post CT.
- Will check limited echo to assess for pericardial effusion
- Given her increasing complexity, may need to consider transfer to [facility]. Case was previously discussed with her outpatient neurosurgeon, Dr. Biggs, who expressed he would accept her if needed
- d/w nursing. d/w patient and at bedside
HPI: Patient came to the ER today with chest pain and cardiology consulted for elevated Troponin. Patient's helps with bulk of HPI. Patient had initial right frontal craniotomy for meningioma in 2013 and had a recurrent craniotomy and
resection 10/2024. Patient's wound didn't heal well superficially and patient has had continued drainage of CSF so she is scheduled to have incision revision procedure at [facility] 07/13/25. Also since her last craniotomy patient developed focal seizures
with symptoms of paresthesias and paralysis of her LUE and sometimes face. Patient follows with a neurologist at [facility] and is now on Keppra. Patient started with one of her focal seizures yesterday afternoon, but she also had symptoms of central and
right sided chest pain. Symptoms lasted for hours and patient's noted that she was lethargic and not acting herself. This morning patient started with nausea and vomiting and so her called their care team at [facility], but didn't feel
comfortable driving her to [facility] ER so they came here. Initial ECG was concerning for inferior infarct. Initial Troponin 9.
Progress Note - Stretcher Drier Operator
Subjective
Date of Service: July 13, 2025
Reports feeling of constant mild chest discomfort and shortness of breath. Reports right lower extremity swelling and some numbness tingling in toes
Objective
Labs:
07/12/25 14:46
07/13/25 04:00
Labs
Hgb 12.7 g/dL (12.0-16.0) 07/12/25 14:46
Hct 36.0 % (37.0-47.0) L 07/12/25 14:46
Plt Count 320 10^3/uL (130-400) 07/12/25 14:46
Sodium 138 mmol/L (135-145) 07/13/25 04:00
Potassium 4.3 mmol/L (3.5-5.1) 07/13/25 04:00
BUN 23 mg/dl (7-17) H 07/13/25 04:00
Creatinine 0.6 mg/dL (0.6-1.0) 07/13/25 04:00
Glucose 95 mg/dl (70-99) 07/13/25 04:00
Troponins
07/12/25 07/12/25 07/12/25
14:46 16:07 22:29
Troponin I Cancelled 5.430 H* 4.340 H*
07/13/25
04:00
Troponin I 3.970 H*
Vital Signs and I&O:
Vital Signs
Temp Pulse Resp BP Pulse Ox
97.3 F 67 18 128/71 98
07/13/25 08:13 07/13/25 08:14 07/13/25 08:13 07/13/25 08:14 07/13/25 04:20
Vital Signs
Temp Pulse Resp BP Pulse Ox
97.3 F 67 18 128/71 98
07/13/25 08:13 07/13/25 08:14 07/13/25 08:13 07/13/25 08:14 07/13/25 04:20
Physical Exam
Physical Exam
GEN: No distress, awake, alert, oriented x3
HEENT: supple, anicteric, mmm, EOMI
LUNGS: CTA bilaterally, no wheezes/rales
CV: Reg, S1/S2, no murmur
ABD: soft, BS+, NT/ND
EXT: No cyanosis, clubbing, edema
NEURO: Gross non-focal
SKIN: Warm, pink, dry. No rash
[2025-07-13 10:33] LABS: APTT 29.2 Sec (23.4-35.0)
--- NOTE | 2025-07-13 10:35 | CM ---
Chart reviewed. Patient is independent of ADLS, lives with her in a 2 STH, 1 RAFA, 0 DME. Plan is for the patient to return home. CM to follow.
[2025-07-13 11:58] VITALS: BP 124/64
[2025-07-13] MEDS: HEPARIN 25000 UNITS/250 ML IV (13:35)
--- NOTE | 2025-07-13 15:47 | W.PN.HOSP.TC ---
Today's Communication/Plan
-
Continue with IV heparin per cardiac protocol
Continue with antiplatelet agents
Await repeat cardiac cath and intervention
Assessment / Plan
Assessment / Plan
Persistent Chest Heaviness / Shortness of Breath, possibly related to residual LAD stenosis vs post-MS pericarditis
CAD with recent coronary PCI
-Asymptomatic without chest pain. No clinical evidence of heart failure. Troponins compared to recent peak are trending down without any increase.
-Repeat echo shows EF of 45 to 50%
-Continue aspirin and ticagrelor
-Continue colchicine
- Await cardiology plan
- Patient on IV heparin for cardiac reasons
Occlusive Thrombus Left Cephalic Vein
-Trial usage of heat therapy
-Unable to use NSAIDs while on aspirin and ticagrelor
- Clinically Thrombophlebitis of cephalic vein with no concern of abscess. Continue with conservative treatments.
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
-Continue aspirin and ticagrelor
-Continue rosuvastatin and ezetimibe
Focal Aware Seizures
-Continue levetiracetam
Discussed with the at bedside
Discussed with RN
Anticipated Discharge: > 48 hours
Subjective/Interval History
-
Date of Service: July 13, 2025
Denies any chest pain or shortness of breath.
Objective Data
-
Labs:
Laboratory Results
07/13/25 07/13/25
04:00 10:09
APTT 29.2
Sodium 138
Potassium 4.3
Chloride 108 H
Carbon Dioxide 27
BUN 23 H
Creatinine 0.6
Glucose 95
Calcium 9.0
Vital Signs:
Vital Signs
Temp Pulse Resp BP Pulse Ox
98 F 69 18 124/64 97
07/13/25 12:18 07/13/25 15:30 07/13/25 12:18 07/13/25 11:58 07/13/25 12:18
Physical Exam
-
General: No Apparent Distress
Respiratory: Clear to Auscultation and Non Labored Respirations; Negative Accessory Resp Muscle Use
Cardiac: Regular Rhythm and S1/S2
Musculoskeletal: No Edema and Other (no swelling of left arm; mild tenderness in lateral aspect of arm coursing on cephalic vein course but no redness evident nor any focal swelling. Improved apparently per pt.)
Neuro: AO x 3
Psych: Calm; Negative Confused
Data Reviewed
-
Labs: Labs Reviewed by me
[2025-07-13 17:05] VITALS: BP 155/66
[2025-07-13] MEDS: CRESTOR 20 MG PO (17:13)
--- NOTE | 2025-07-13 17:13 | VATNOTE ---
VAT in receipt of midline order from Dr. Coles for basilic vein use. This VAT RN saw pt's left arm in ED last evening and started peripheral IV in left forearm. Removed once thrombus confirmed in left cephalic vein of entire left upper arm. TT with
Dr. Coles; a this VAT RN not comfortable placing midline in left arm and further IV access would need to be pursued via IR in preparation for 07/14 cath.
[2025-07-13 19:26] VITALS: BP 140/73
[2025-07-13] MEDS: NEURONTIN 600 MG PO (19:45)
[2025-07-13] MEDS: ZETIA 10 MG PO (19:46)
[2025-07-13 19:56] LABS: APTT 44.4 Sec (23.4-35.0)
[2025-07-13 22:27] VITALS: BP 131/50
--- NOTE | 2025-07-13 22:41 | PTCARENOTE ---
Received patient at change of shift. SR on the monitor, HR in the 70s. Heparin running as per protocol, see documentation. HS medications administered early as per pt request. No complaints from pt at this time, call esparza within reach.
[2025-07-14] VITALS (25 sets, daily range): BP systolic 64–154; BP diastolic 49–77; BMI 22.9
[2025-07-14 02:36] LABS: APTT 144.3 Sec (23.4-35.0)
[2025-07-14] MEDS: LOW STRENGTH ASPIRIN 81 MG PO (08:25)
[2025-07-14] MEDS: KEPPRA 750 MG PO ×2 (08:25→19:52)
[2025-07-14] MEDS: TOPROL XL 12.5 MG PO (08:26)
[2025-07-14] MEDS: PROTONIX 40 MG PO (08:26)
[2025-07-14] MEDS: BRILINTA 90 MG PO ×2 (08:27→22:17)
[2025-07-14] MEDS: COLCHICINE 0.3 MG PO ×2 (08:27→19:52)
--- NOTE | 2025-07-14 09:30 | W.PN.HOSP.TC ---
Today's Communication/Plan
-
Continue with antiplatelet agents.
Continue IV heparin for cardiac reasons
Await repeat coronary PCI plan
Assessment / Plan
Assessment / Plan
Persistent Chest Heaviness / Shortness of Breath, possibly related to residual LAD stenosis vs post-DC pericarditis
CAD with recent coronary PCI
-Asymptomatic without chest pain. No clinical evidence of heart failure. Troponins compared to recent peak are trending down without any increase.
-Repeat echo shows EF of 45 to 50%
-Continue aspirin and ticagrelor
-Continue colchicine
- Patient on IV heparin for cardiac reasons
- Cardiology following
Occlusive Thrombus Left Cephalic Vein
The occlusive thrombus within the left cephalic vein within the proximal, mid, and distal aspect of the left upper arm, extending to the antecubital region.
- She currently has discomfort and tenderness in the course of the left cephalic vein in the arm. No swelling in the arm or elbow or in the hand.
- Continue with trial usage of heat therapy
- Unable to use NSAIDs while on aspirin and ticagrelor
- Clinically Thrombophlebitis of cephalic vein with no concern of abscess. Continue with conservative treatments.
- Since the proximal part of the cephalic vein is involved if still symptomatic repeat ultrasound in a week.
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
-Continue aspirin and ticagrelor
-Continue rosuvastatin and ezetimibe
Focal Aware Seizures
-Continue levetiracetam
Discussed with the at bedside
Discussed with RN
DW Cards
Anticipated Discharge: 24 - 48 hours
Subjective/Interval History
-
Date of Service: July 14, 2025
No chest pain or shortness of breath.
Still with mild discomfort in the left arm laterally. No swelling in the arm. No fever or chills.
Objective Data
-
Labs:
Laboratory Results
07/14/25 07/14/25 07/14/25
02:08 06:00 09:45
WBC Pending
Hgb Pending
Hct Pending
Plt Count Pending
APTT 144.3 H Pending
Sodium Pending
Potassium Pending
Chloride Pending
Carbon Dioxide Pending
BUN Pending
Creatinine Pending
Glucose Pending
Calcium Pending
Vital Signs:
Vital Signs
Temp Pulse Resp BP Pulse Ox
98.0 F 69 15 111/64 97
07/14/25 08:31 07/14/25 08:26 07/14/25 08:31 07/14/25 08:26 07/14/25 08:31
Physical Exam
-
General: No Apparent Distress
Respiratory: Clear to Auscultation and Non Labored Respirations; Negative Accessory Resp Muscle Use
Cardiac: Regular Rhythm and S1/S2
GI: Soft and Nontender
Musculoskeletal: Other (Left arm without swelling. Mild tenderness in the left cephalic vein distribution in the arm. No redness or swelling.)
Neuro: AO x 3
Psych: Calm
Data Reviewed
-
Labs: Labs Reviewed by me
[2025-07-14 10:40] LABS: Hematocrit 34.8 % (37.0-47.0); Hemoglobin 11.7 g/dL (12.0-16.0); Mean Corp Hgb Conc. 33.6 g/dL (33.0-37.0); Mean Corpuscular Volume 89.5 fL (81.0-99.0); Platelet Count 342 10^3/uL (130-400); Red Cell Dist. Width 12.0 % (11.5-14.5)
[2025-07-14 10:51] LABS: APTT 100.3 Sec (23.4-35.0)
--- NOTE | 2025-07-14 11:04 | CM ---
Chart reviewed. Patient is going for a staged PCI today. Patient is independent of ADLS, lives with her in a 2 STH, 1 RAFA, 0 DME. Plan is for the patient to return home. CM to follow
[2025-07-14 11:20] LABS: Blood Urea Nitrogen 22 mg/dl (7-17); Calcium 9.1 mg/dl (8.4-10.2); Carbon Dioxide 25 mmol/L (22-30); Chloride 108 mmol/L (98-107); Estimated Creatinine Clearance 62 ml/min; Glucose 91 mg/dl (70-99); Potassium 4.2 mmol/L (3.5-5.1); Sodium 138 mmol/L (135-145); eGFR > 60.00
[2025-07-14] MEDS: HEPARIN 25000 UNITS/250 ML IV (11:45)
--- NOTE | 2025-07-14 12:35 | ITS.CL.CATH ---
Product Info Specialist - Catheterization
Cardiac Catheterization
Procedure Report:
LEFT HEART CATHETERIZATION
Date of Procedure: July 14, 2025
Referring: Torito Loyola MD
PROCEDURES:
1. Left heart catheterization, coronary angiogram.
2. Moderate sedation.
3. Successful percutaneous coronary artery intervention of 80% mid LAD stenosis with one 2.5 x 26 mm Medtronic Yusuf frontier drug-eluting stent, postdilated using IVUS guidance with a 2.5 x 20 mm NC balloon at high pressures with an excellent
angiographic and IVUS based result
4. Intravascular Ultrasound (IVUS).
INDICATION: Deanna is a 65-year-old female with a complex medical history including recurrent meningioma s/p craniotomy in October 2024 at [facility], and recent admission in the last 2-week for a late presenting inferior PR status post
RCA PCI on aspirin and Brilinta, discharged on July 12, 2025. Reportedly she has been having ongoing intermittent chest discomfort/pressure and shortness of breath post PCI as well as after discharge which made her come back on July 13, 2025.
With left upper extremity and lower extremity swelling she underwent ultrasounds which showed a new DVT in the left upper extremity for which she was initiated on heparin. Thankfully her lower extremity ultrasounds were negative for DVT and CTA
for PE protocol did not show any evidence of a thrombus. Her troponins were elevated at 5 and downtrending. With ongoing chest pain despite PCI decision was made to proceed with repeat heart catheterization to take a look and make sure the RCA
stents were okay and also proceed with staged PCI of the LAD which was going to happen in the near future anyway.
ACCESS:Left common femoral arterial access was obtained using a 6 [place] sheath and a micropuncture kit under ultrasound guidance.
HEMODYNAMICS : (mmHg)
AO (s/d) : 159/77
LVEDP : 22
No significant gradient across the aortic valve to suggest aortic stenosis.
CORONARY FINDINGS
Dominance: Right
Left Main Trunk (LMT): Large caliber vessel that gives rise to the LAD and LCx branches and is free of angiographic disease.
Left Anterior Descending Artery (LAD): Large caliber vessel that gives off 2 major diagonal branches as it courses along the anterior inter-ventricular groove before wrapping around the cardiac apex. Mid LAD just distal to the takeoff of D2 has a
focal 80% stenosis just distal to the takeoff of D2. D2 is a small to medium caliber vessel. Ostial D2 has a 70-80% stenosis and proximal D2 has 70-80% stenosis.
Left Circumflex Artery (LCx): Large caliber vessel that gives off 2 major obtuse marginal (OM) branches as it courses along the atrio-ventricular (AV) groove. Ostial left circumflex has a 20% stenosis. There is mild diffuse atherosclerotic plaque.
Right Coronary Artery (RCA): Large caliber dominant vessel that gives rise to the posterior descending artery (RPDA) and postero-lateral ventricular (RPLV) branches distally. The proximal RCA stent from last week is widely patent with LIZET-3 flow
into the distal vessel
CORONARY INTERVENTION: Decision was made to proceed with mid LAD PCI. The left coronary artery was selectively engaged using a 6 [place] EBU 3.5 guide catheter. Additional heparin was given to maintain therapeutic ACT throughout the case. A 180 cm
0.014' run-through wire was carefully navigated across the mid LAD stenosis into the distal vessel. The lesion was predilated using a 2.5 x 15 mm semicompliant balloon with full expansion. The lesion was subsequently stented using a 2.5 x 26 mm
Medtronic Yusuf frontier drug-eluting stent just distal to the diagonal branch in the hopes to not jailed the diagonal branch and compromise it given ostial D2 lesion. Based on IVUS guidance the stent was postdilated using a 2.5 mm NC balloon at
high pressures with an excellent angiographic and IVUS based result. Post PCI IVUS did not show any evidence of proximal or distal stent edge dissections. The stent was well opposed and well-expanded.
SEDATION: 57 minutes of procedural sedation was utilized. IV Midazolam and IV Fentanyl were administered. An independent medical office asst was present to assist with and help manage the patient's level of consciousness and physiologic status.
Closure Device: Limited femoral angiography on the left side showed a very high bifurcation with arteriotomy in the left SFA and therefore decision was made to not proceed with closure device and instead perform a manual hold once the ACT is below
170 ms
CONCLUSIONS
1. Successful percutaneous coronary artery intervention of 80% mid LAD stenosis with one 2.5 x 26 mm Medtronic Yusuf frontier drug-eluting stent, postdilated using IVUS guidance with a 2.5 x 20 mm NC balloon at high pressures with an excellent
angiographic and IVUS based result.
2. Elevated LVEDP at 22 mmHg.
3. Widely patent RCA stent from last week
RECOMMENDATIONS
1. Bedrest per protocol post groin access. Left groin sheath from the artery will be pulled with plan for manual pressure once ACT is below 170 ms
2. Continue aggressive medical therapy for mild ischemic cardiomyopathy and risk factor modification for secondary CAD prevention. IV diuresis tomorrow given LVEDP of 22 mmHg.
3. Now, given need for Eliquis given new DVT in the left upper extremity we will plan to switch to Plavix tomorrow and initiate Eliquis as long as there are no groin issues overnight. Plan to resume heparin without a bolus about 6 hours after the
left femoral sheath is pulled. Plan for triple therapy with aspirin Plavix and Eliquis while in the hospital and discharged home on Plavix and Eliquis
4. Hydrate with normal saline to mitigate the risk of contrast-induced acute kidney injury.
5. Referral for outpatient cardiac rehab.
Kami Shearer MD, [facility], [facility]
Copy to: Leslie Anglin MD
--- NOTE | 2025-07-14 12:36 | W.PN.UPDATE ---
Update Note
Progress Note Update
called and spoke with Faiza with Dr. Biggs's office (neurosurg). Updated on finding of LUE DVT and plan for LAD stenting today with likely need for regimen of plavix, eliquis due to stenting and DVT. Obviously not ideal in setting of her
craniotomy issues however given necessity, they expressed understanding and were appreciative of update. Advised to call with any questions and provided call back number.
--- NOTE | 2025-07-14 14:48 | W.PN.CARDCBS ---
Today's Communication / Plan
-
Plan:
- Medically very complex
- Recent admission with acute IWMI 07/07/2025 to 07/11/2025. s/p PCI of RCA with plan for staged intervention of LAD lesion as outpatient.
- Presented back 07/12 due to intermittent chest pain and shortness of breath, similar to symptoms leading to last admission
- Troponin at ~5, continues to downtrend
- Was noted to have left upper extremity swelling and underwent ultrasound which showed occlusive thrombus involving left cephalic vein, therefore was started on IV heparin with need for eventual Eliquis. Bilateral lower extremity ultrasounds
negative for DVT.
- She did undergo chest CTA 07/07 which was without evidence of PE
-With eventual Eliquis, plan will be to likely downgrade Brilinta to Plavix to minimize risk for bleeding especially with prior history of craniotomies. Discussed with neurosurgery team who feel like we should do what ever is needed from a cardiac
standpoint
- She continues on colchicine for suspected pericarditis post [place].
- Repeat limited echocardiogram showing mild LV dysfunction.
- Reviewed risk and benefits of repeat heart catheterization again today in extensive detail with both and , given recurrent chest pain since the [place] plan is to relook at everything and hopefully if the RCA stent is unchanged plan to
proceed with PCI to mid LAD.
Impression / Plan
-
PCP: Dr. Benítez
Card: Dr. Leslie Anglin
Neurosurgeon: Dr. Hussein Biggs [facility]
Impression:
Presented with continuing chest pain, SOB 07/12/2025
Admitted with chest pain and elevated Troponin 07/07/25, discharged 07/11/2025
Late presentation of acute IWMI, peak troponin 90.9
CAD
s/p 3 mm Yusuf JASON to 100% proximal occlusion of the RCA 07/07/2025
Residual 80% mid LAD lesion by cardiac cath 07/07/2025
FH premature CAD with h/o calcium score of 66 05/31/23
Recurrent meningioma
s/p right frontal craniotomy and XRT at [facility] 2013
s/p repeat right frontal craniotomy at [facility] 10/2024
Focal seizures
following with neurology at [facility], symptoms are left arm paralysis and paresthesias
h/o right breast lumpectomy and XRT
Echo 08/02/23: EF 55-60%, no WMA, mild MR
Echo 07/07/25: EF 55 to 60%, normal LV size and function, no WMA, no significant change compared to echo 07/2023
ECHO 07/08/25: EF 57%, no regional wall motion abnormalities noted
Echo 07/12/2025: Study pending
Plan:
- Medically very complex
- Recent admission with acute IWMI 07/07/2025 to 07/11/2025. s/p PCI of RCA with plan for staged intervention of LAD lesion as outpatient.
- Presented back 07/12 due to intermittent chest pain and shortness of breath, similar to symptoms leading to last admission
- Troponin at ~5, continues to downtrend
- Was noted to have left upper extremity swelling and underwent ultrasound which showed occlusive thrombus involving left cephalic vein, therefore was started on IV heparin with need for eventual Eliquis. Bilateral lower extremity ultrasounds
negative for DVT.
- She did undergo chest CTA 07/07 which was without evidence of PE
-With eventual Eliquis, plan will be to likely downgrade Brilinta to Plavix to minimize risk for bleeding especially with prior history of craniotomies. Discussed with neurosurgery team who feel like we should do what ever is needed from a cardiac
standpoint
- She continues on colchicine for suspected pericarditis post [place].
- Repeat limited echocardiogram showing mild LV dysfunction.
- Reviewed risk and benefits of repeat heart catheterization again today in extensive detail with both and , given recurrent chest pain since the [place] plan is to relook at everything and hopefully if the RCA stent is unchanged plan to
proceed with PCI to mid LAD.
HPI: Patient came to the ER today with chest pain and cardiology consulted for elevated Troponin. Patient's helps with bulk of HPI. Patient had initial right frontal craniotomy for meningioma in 2013 and had a recurrent craniotomy and
resection 10/2024. Patient's wound didn't heal well superficially and patient has had continued drainage of CSF so she is scheduled to have incision revision procedure at [facility] 07/13/25. Also since her last craniotomy patient developed focal seizures
with symptoms of paresthesias and paralysis of her LUE and sometimes face. Patient follows with a neurologist at [facility] and is now on Keppra. Patient started with one of her focal seizures yesterday afternoon, but she also had symptoms of central and
right sided chest pain. Symptoms lasted for hours and patient's noted that she was lethargic and not acting herself. This morning patient started with nausea and vomiting and so her called their care team at [facility], but didn't feel
comfortable driving her to [facility] ER so they came here. Initial ECG was concerning for inferior infarct. Initial Troponin 9.
Progress Note - Supervisor [employer]
Subjective
Date of Service: July 14, 2025
Status post right IJ access with interventional radiology. Off-and-on chest pain overnight.
Objective
Labs:
07/14/25 10:14
07/14/25 10:14
Labs
Hgb 11.7 g/dL (12.0-16.0) L 07/14/25 10:14
Hct 34.8 % (37.0-47.0) L 07/14/25 10:14
Plt Count 342 10^3/uL (130-400) 07/14/25 10:14
APTT 100.3 Sec (23.4-35.0) H 07/14/25 10:14
Sodium 138 mmol/L (135-145) 07/14/25 10:14
Potassium 4.2 mmol/L (3.5-5.1) 07/14/25 10:14
BUN 22 mg/dl (7-17) H 07/14/25 10:14
Creatinine 0.7 mg/dL (0.6-1.0) 07/14/25 10:14
Glucose 91 mg/dl (70-99) 07/14/25 10:14
Troponins
07/12/25 07/12/25 07/12/25
14:46 16:07 22:29
Troponin I Cancelled 5.430 H* 4.340 H*
07/13/25
04:00
Troponin I 3.970 H*
Vital Signs and I&O:
Vital Signs
Temp Pulse Resp BP Pulse Ox
98.2 F 68 14 154/66 100
07/14/25 11:43 07/14/25 12:30 07/14/25 12:30 07/14/25 12:30 07/14/25 12:00
Vital Signs
Temp Pulse Resp BP Pulse Ox
98.2 F 68 14 154/66 100
07/14/25 11:43 07/14/25 12:30 07/14/25 12:30 07/14/25 12:30 07/14/25 12:00
Physical Exam
Physical Exam
GEN: No distress, awake, alert, oriented x3
HEENT: supple, anicteric, mmm, EOMI
LUNGS: CTA bilaterally, no wheezes/rales
CV: Reg, S1/S2, no murmur
ABD: soft, BS+, NT/ND
EXT: No cyanosis, clubbing, edema
NEURO: Gross non-focal
SKIN: Warm, pink, dry. No rash
[2025-07-14 16:02] LABS: ACT-LR - POC 310 Seconds (116-155)
[2025-07-14 17:16] LABS: ACT-LR - POC 244 Seconds (116-155)
[2025-07-14] MEDS: CRESTOR 20 MG PO (17:37)
[2025-07-14 17:59] LABS: ACT-LR - POC 186 Seconds (116-155)
--- NOTE | 2025-07-14 19:09 | W.PN.CARD.SR ---
Sheath/IABP Sheath Removal
Sheath Removal
Left Arterial Femoral:
Site appearance prior to sheath removal: Intact
Sheath removed by:: Physician assistant hairstylist (Nurse practitioner)
Name of associate removing sheath: coleman LUO
Time of sheath removal: 18:40
Time hemostasis achieved: 18:55
Site appearance post sheath removal: Intact
Method of Hemostasis Post Sheath Removal: Manual Pressure
Dressing dry and intact?: Yes
--- NOTE | 2025-07-14 19:32 | PTCARENOTE ---
Pt had triple lumen RIJ device placed in IRAD. Pt went to [facility], stent placed via left femoral artery, sheath in place. Some oozing noted around insertion site , ACT 186 @17:53. notified and responded @18:22. Femoral sheath removed at
18:41 by PEDRITO Pate, manual pressure held for 15 minutes, sandbag placed over femoral site. No hematoma noted, very slight ooze on dressing. Will monitor closely. Pt on bedrest for 4 hours. Pt unable to void prior to sheath removal. Telemetry
today showed sinus rhythm.
[2025-07-14] MEDS: NEURONTIN 600 MG PO (19:52)
[2025-07-14] MEDS: ZETIA 10 MG PO (19:52)
--- NOTE | 2025-07-14 23:40 | PTCARENOTE ---
Pt.'s left groin slowly oozing since sheath removal at 1840; no hematoma, pedal pulse palpable. Sandbag on and then manual pressure held x 30 minute at 2100, dressing changed and hemostasis pad placed by Francesca MAJOR. New dressing currently has
some bloody drainage but appears to have stopped (okay to give Brillinta per Tsilina). Pt. has no complaints of chest pain, VSS, NSR on the monitor. Unable to void using bedpan earlier. Bladder scan showing [address] cathed for 700 ml clear
yellow urine. Pt. resting quietly.
[2025-07-15] VITALS (21 sets, daily range): BP systolic 91–140; BP diastolic 45–83; BMI 23.0
[2025-07-15 04:00] LABS: Hematocrit 34.0 % (37.0-47.0); Hemoglobin 11.5 g/dL (12.0-16.0); Mean Corp Hgb Conc. 33.8 g/dL (33.0-37.0); Mean Corpuscular Volume 87.6 fL (81.0-99.0); Platelet Count 314 10^3/uL (130-400); Red Cell Dist. Width 12.0 % (11.5-14.5)
[2025-07-15 04:28] LABS: Blood Urea Nitrogen 20 mg/dl (7-17); Calcium 8.9 mg/dl (8.4-10.2); Carbon Dioxide 24 mmol/L (22-30); Chloride 107 mmol/L (98-107); Estimated Creatinine Clearance 62 ml/min; Glucose 106 mg/dl (70-99); Potassium 4.2 mmol/L (3.5-5.1); Sodium 137 mmol/L (135-145); eGFR > 60.00
[2025-07-15 07:40] LABS: ACT-LR - POC 339 Seconds (116-155)
[2025-07-15 07:40] LABS: ACT-LR - POC 242 Seconds (116-155)
[2025-07-15 07:40] LABS: ACT-LR - POC 285 Seconds (116-155)
[2025-07-15] MEDS: KEPPRA 750 MG PO ×2 (08:52→19:51)
[2025-07-15] MEDS: LOW STRENGTH ASPIRIN 81 MG PO (08:53)
[2025-07-15] MEDS: COLCHICINE 0.3 MG PO ×2 (08:54→19:51)
[2025-07-15] MEDS: TOPROL XL 12.5 MG PO (08:54)
[2025-07-15] MEDS: PROTONIX 40 MG PO (08:54)
[2025-07-15] MEDS: PLAVIX 600 MG PO (08:54)
[2025-07-15] MEDS: LASIX 20 MG IV (08:55)
--- NOTE | 2025-07-15 08:58 | VATNOTE ---
Patient for potential discharge later today. RIJ redress held at this time.
--- NOTE | 2025-07-15 09:10 | CM ---
Pricing on [place] through the patient's [employer], ID#[id number], is a $0 copay. I will also place a free 30 day for the patient to use at the start of the year.
--- NOTE | 2025-07-15 11:14 | CM ---
Chart reviewed. Patient is independent of ADLS, ambulating in the halls with her . Patient lives in a [address] [facility], with her , 1 RAFA, 0 DME. Plan is for the patient to return home. CM to follow
--- NOTE | 2025-07-15 12:32 | W.PN.CARDCBS ---
Addendum entered and electronically signed by Kami Shearer MD 07/15/25 22:37:
I saw and examined the patient.
The Sea Foam Kiss Maker's note was reviewed and I agree with the note.
Comment: Patient is s/p staged LAD PCI on 07/14/25, stable vitals, still with ongoing chest pressure this AM, though mild and intermittent SOB. No issues at left groin site overnight though some oozing initially. at bedside.
On exam, patient is well appearing but still down that some chest pressure is ongoing, otherwise in no acute distress, regular rate, normal S1 and S2, no murmurs, rubs or gallops, lungs are clear to auscultation bilaterally, elevated JVD, abdomen is
soft, nontender, nondistended with active bowel sounds, warm extremities without significant edema. No issues at either groin access sites, no hematoma or bruit.
Echocardiogram repeat this admission showed mildly reduced LV systolic function with LVEF of 40 to 45% with global hypokinesis and regional variations, mild MR and TR with trivial pericardial effusion. Normal RV size and function.
Recommendations:
1. s/p LAD PCI that was going to be staged anyway. RCA PCI with no issues and looks excellent. We had downgraded brilinta to plavix which was loaded this AM given we were told pt would also need eliquis but now there is apparently no indication for
eliquis as thrombus in LUE not deemed to be DVTs. Given atypical SOB complaints, favor maintaining plavix over brilinta given possible side effect of SOB from brilinta possibly.
2. Extensive discussion had with patient and at bedside that at this point, chest pressure possible could be from component of heart failure in setting of LVEDP 22 so will trial IV diuresis but beyond that, also quesiton non-cardiac causes?
CTA PE negative upon admission.
3. In the interim we will continue with optimization of goal-directed medical therapy for ischemic CM.
4. Educated in regards to importance of a high-fiber Mediterranean type diet and pursuing cardiac rehab as an outpatient when she is stable for discharge.
5. Outpt cardiac rehab referral.
6. Explained all of the above to patient and at bedside who relayed understanding.
Kami Shearer MD, [facility], [facility]
Total time spent: 52 minutes
Original Note:
Today's Communication / Plan
-
IV lasix
ambulate
for now, continue asa, plavix. awaiting heme eval of need for OAC re DVT
hopefully DC in AM
Impression / Plan
-
PCP: Dr. Benítez
Card: Dr. Leslie Anglin
Neurosurgeon: Dr. Hussein Biggs, [place]
Impression:
Presented with continuing chest pain, SOB 07/12/2025
Admitted with chest pain and elevated Troponin 07/07/25, discharged 07/11/2025
Late presentation of acute IWMI, peak troponin 90.9
CAD
s/p 3 mm Yusuf JASON to 100% proximal occlusion of the RCA 07/07/2025
Residual 80% mid LAD lesion by cardiac cath 07/07/2025
FH premature CAD with h/o calcium score of 66 05/31/23
Recurrent meningioma
s/p right frontal craniotomy and XRT at [place] 2013
s/p repeat right frontal craniotomy at [place] 10/2024
Focal seizures
following with neurology at [place], symptoms are left arm paralysis and paresthesias
h/o right breast lumpectomy and XRT
Echo 08/02/23: EF 55-60%, no WMA, mild MR
Echo 07/07/25: EF 55 to 60%, normal LV size and function, no WMA, no significant change compared to echo 07/2023
ECHO 07/08/25: EF 57%, no regional wall motion abnormalities noted
Echo 07/12/2025: EF 45-50%, global hypokinesis, mild MR, mild TR, trivial pericardial effusion
Plan:
- Medically very complex
- Recent admission with acute IWMI 07/07/2025 to 07/11/2025. s/p PCI of RCA with plan for staged intervention of LAD lesion as outpatient.
- Presented back 07/12 due to intermittent chest pain and shortness of breath, similar to symptoms leading to last admission
- Troponin peaked at 5 on admission and downtrended
- diagnosed with occlusive thrombus of L cephalic vein. hematology evaluating need for OAC
- chest CTA negative for PE
- s/p staged LAD PCI 07/14. B/L groin sites stable
- was transitioned from brilinta to plavix 07/15 due to concern for need for OAC. if no need for OAC, would continue asa, plavix. if needs OAC, would plan for eliquis, plavix. Discussed with neurosurgery team 07/14 who feel like we should do what
ever is needed from a cardiac standpoint
- reports remains with some chest pressure, which has not significantly changed even from prior admission. suspect noncardiac, but attempting to diurese. proBNP 1330. received 20mg IV lasix this morning, will assess response
- She continues on colchicine for suspected pericarditis post [place].
- Repeat limited echocardiogram showed EF 45-50%. continue toprol. GDMT as able
- in SR on review of tele overnight
- ambulate
- for possible DC in AM
- d/w nursing. d/w patient and at bedside. d/w hospitalist
HPI: Patient came to the ER today with chest pain and cardiology consulted for elevated Troponin. Patient's helps with bulk of HPI. Patient had initial right frontal craniotomy for meningioma in 2013 and had a recurrent craniotomy and
resection 10/2024. Patient's wound didn't heal well superficially and patient has had continued drainage of CSF so she is scheduled to have incision revision procedure at [place] 07/13/25. Also since her last craniotomy patient developed focal seizures
with symptoms of paresthesias and paralysis of her LUE and sometimes face. Patient follows with a neurologist at [place] and is now on Keppra. Patient started with one of her focal seizures yesterday afternoon, but she also had symptoms of central and
right sided chest pain. Symptoms lasted for hours and patient's noted that she was lethargic and not acting herself. This morning patient started with nausea and vomiting and so her called their care team at [place], but didn't feel
comfortable driving her to [place] ER so they came here. Initial ECG was concerning for inferior infarct. Initial Troponin 9.
Progress Note - Agency Recruiter
Subjective
Date of Service: July 15, 2025
Reports remains with some chest pressure which is largely unchanged since presentation last admission
Objective
Labs:
07/15/25 03:17
07/15/25 03:17
Labs
Hgb 11.5 g/dL (12.0-16.0) L 07/15/25 03:17
Hct 34.0 % (37.0-47.0) L 07/15/25 03:17
Plt Count 314 10^3/uL (130-400) 07/15/25 03:17
APTT Cancelled 07/14/25 16:15
Sodium 137 mmol/L (135-145) 07/15/25 03:17
Potassium 4.2 mmol/L (3.5-5.1) 07/15/25 03:17
BUN 20 mg/dl (7-17) H 07/15/25 03:17
Creatinine 0.7 mg/dL (0.6-1.0) 07/15/25 03:17
Glucose 106 mg/dl (70-99) H 07/15/25 03:17
Troponins
07/12/25 07/12/25 07/12/25
14:46 16:07 22:29
Troponin I Cancelled 5.430 H* 4.340 H*
07/13/25
04:00
Troponin I 3.970 H*
Vital Signs and I&O:
Vital Signs
Temp Pulse Resp BP Pulse Ox
98.1 F 77 18 140/60 99
07/15/25 11:40 07/15/25 12:15 07/15/25 11:40 07/15/25 11:39 07/15/25 11:40
Vital Signs
Temp Pulse Resp BP Pulse Ox
98.1 F 77 18 140/60 99
07/15/25 11:40 07/15/25 12:15 07/15/25 11:40 07/15/25 11:39 07/15/25 11:40
Intake & Output
07/13/25 07/14/25 07/15/25 07/16/25
07:59 07:59 07:59 07:59
Intake Total 1130 / 1130
Output Total 700 / 700 500 / 500
Balance 430 / 430 -500 / -500
Physical Exam
Physical Exam
GEN: No distress, awake, alert, oriented x3
HEENT: supple, anicteric, mmm, EOMI
LUNGS: CTA bilaterally, no wheezes/rales
CV: Reg, S1/S2, no murmur
ABD: soft, BS+, NT/ND
EXT: No cyanosis, clubbing, edema
NEURO: Gross non-focal
SKIN: Warm, pink, dry. No rash. B/L groin sites soft, NTTP
--- NOTE | 2025-07-15 12:54 | W.PN.HOSP.TC ---
Addendum entered and electronically signed by Percy Coles MD 07/22/25 14:51:
Acute CHFmrEF decompensation
Original Note:
Today's Communication/Plan
-
Continue with diuretics
Continue DAPT
No indication for anticoagulation from left upper extremity cephalic vein thrombosis
Assessment / Plan
Assessment / Plan
Persistent Chest Heaviness / Shortness of Breath, possibly related to residual LAD stenosis vs post-[place] pericarditis
CAD with recent coronary PCI
-Asymptomatic without chest pain. No clinical evidence of heart failure. Troponins compared to recent peak are trending down without any increase.
-Repeat echo shows EF of 45 to 50%
-Continue aspirin and ticagrelor
-Continue colchicine
- Cardiology following
Acute CHF decompensation
Cath showed LV end-diastolic pressures was 22
Patient started on diuretics-follow weights
Occlusive Thrombus Left Cephalic Vein
The occlusive thrombus within the left cephalic vein within the proximal, mid, and distal aspect of the left upper arm, extending to the antecubital region.
- No swelling in the arm or elbow or in the hand. Improved pain and tenderness.
- Continue with trial usage of heat therapy
- Unable to use NSAIDs while on aspirin and ticagrelor
- Clinically Thrombophlebitis of cephalic vein with no concern of abscess. Continue with conservative treatments.
- No indication for anticoagulation -discussed with hematology bus person dishwasher as well today
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
-Continue aspirin and ticagrelor
-Continue rosuvastatin and ezetimibe
Focal Aware Seizures
-Continue levetiracetam
Discussed with the at bedside
Discussed with Cardiology team
DC when okay from cardiology standpoint
Anticipated Discharge: 24 - 48 hours
Subjective/Interval History
-
Date of Service: July 15, 2025
No shortness of breath but feels some nonspecific chest discomfort. Able to walk to the bathroom without any worsening.
No nausea vomiting. No dizziness. Left arm feels better.
Objective Data
-
Labs:
Laboratory Results
07/15/25
03:17
WBC 7.6
Hgb 11.5 L
Hct 34.0 L
Plt Count 314
Sodium 137
Potassium 4.2
Chloride 107
Carbon Dioxide 24
BUN 20 H
Creatinine 0.7
Glucose 106 H
Calcium 8.9
Vital Signs:
Vital Signs
Temp Pulse Resp BP Pulse Ox
98.1 F 77 18 140/60 99
07/15/25 11:40 07/15/25 12:15 07/15/25 11:40 07/15/25 11:39 07/15/25 11:40
I&O
07/14/25 07/15/25 07/16/25
06:59 06:59 06:59
Intake Total 1130 / 1130
Output Total 700 / 700 500 / 500
Balance 430 / 430 -500 / -500
Physical Exam
-
General: No Apparent Distress
HEENT: Moist Mucous Membranes
Respiratory: Clear to Auscultation and Non Labored Respirations; Negative Accessory Resp Muscle Use
Cardiac: Regular Rhythm and S1/S2
GI: Soft
Musculoskeletal: Negative Edema, Left Upper Extrem
Neuro: AO x 3
Psych: Calm
Data Reviewed
-
Labs: Labs Reviewed by me
[2025-07-15] MEDS: CRESTOR 20 MG PO (18:09)
--- NOTE | 2025-07-15 18:22 | PTCARENOTE ---
Left femoral groin site with dry and intact dressing, no sign of bleeding or hematoma. Pt walking in halls with her without difficulty. At 13:35 this RN checked on pt who stated she had one of her 'focal aware seizures which lasted 15
minutes and had been over for awhile'. Pt reported her 'usual speech garbling with weak arms and legs', completely resolved when she told this RN. Pt 's states she has experienced these episodes at least 20 times since October of this year.
notified , plan to continue Brea.
[2025-07-15] MEDS: ZETIA 10 MG PO (19:52)
[2025-07-15] MEDS: NEURONTIN 600 MG PO (19:53)
--- NOTE | 2025-07-15 22:59 | PTCARENOTE ---
Received patient at change of shift. SR on the monitor HR in the 80s. HS medications given early as per pt request. R groin TAYA, intact. L groin dressing CDI. No complaints from pt at this time, call esparza within reach.
[2025-07-16 04:15] VITALS: BP 129/50
[2025-07-16 04:28] VITALS: BMI 22.7
[2025-07-16 06:20] LABS: Blood Urea Nitrogen 19 mg/dl (7-17); Calcium 9.0 mg/dl (8.4-10.2); Carbon Dioxide 26 mmol/L (22-30); Chloride 103 mmol/L (98-107); Estimated Creatinine Clearance 62 ml/min; Glucose 97 mg/dl (70-99); Potassium 3.9 mmol/L (3.5-5.1); Sodium 137 mmol/L (135-145); eGFR > 60.00
[2025-07-16 07:14] VITALS: BP 133/40
[2025-07-16] MEDS: KEPPRA 750 MG PO (07:54)
[2025-07-16] MEDS: PLAVIX 75 MG PO (07:54)
[2025-07-16] MEDS: TOPROL XL 12.5 MG PO (07:54)
[2025-07-16] MEDS: LOW STRENGTH ASPIRIN 81 MG PO (07:54)
[2025-07-16] MEDS: PROTONIX 40 MG PO (07:54)
[2025-07-16] MEDS: FLUSH (NSS) 1 FLUSH IV (07:55)
[2025-07-16] MEDS: COLCHICINE 0.3 MG PO (07:55)
[2025-07-16] MEDS: FLUSH (NSS) 2 FLUSH IV ×2 (08:03→11:15)
--- NOTE | 2025-07-16 09:23 | W.PN.CARDCBS ---
Addendum entered and electronically signed by Kami Shearer MD 07/16/25 22:45:
I saw and examined the patient.
The Pallet Repairer's note was reviewed and I agree with the note.
Comment: Patient is s/p staged LAD PCI on 07/14/25, stable vitals, better chest pressure and SOB.
On exam, patient is well appearing but still down that some chest pressure is ongoing, otherwise in no acute distress, regular rate, normal S1 and S2, no murmurs, rubs or gallops, lungs are clear to auscultation bilaterally, mildly elevated JVD,
abdomen is soft, nontender, nondistended with active bowel sounds, warm extremities without significant edema. No issues at either groin access sites, no hematoma or bruit.
Echocardiogram repeat this admission showed mildly reduced LV systolic function with LVEF of 40 to 45% with global hypokinesis and regional variations, mild MR and TR with trivial pericardial effusion. Normal RV size and function.
Recommendations:
1. s/p LAD PCI which went well. RCA PCI with no issues and looks excellent. We had downgraded brilinta to plavix given atypical SOB.
2. Another dose of IV lasix.
3. Continue with optimization of goal-directed medical therapy for ischemic CM.
4. Educated in regards to importance of a high-fiber Mediterranean type diet and pursuing cardiac rehab as an outpatient when she is stable for discharge.
5. Outpt cardiac rehab referral.
6. Explained all of the above to patient and at bedside who relayed understanding.
stable for DC and outpt cards follow up.
Kami Shearer MD, [facility], [facility]
Total time spent: 32 minutes
Original Note:
Today's Communication / Plan
-
IV lasix 20mg x1 again today
Aspirin 81 mg daily
Colchicine 0.3 mg p.o. twice daily
Toprol 12.5 mg p.o. daily
Protonix 40 mg p.o. daily
Crestor 20 mg p.o. every afternoon
Zetia 10 mg p.o. nightly
Plavix 75 mg p.o. daily
lisinopril 2.5mg daily
BMP/proBNP in 1 week
Cardiac rehab
Outpatient cardiac follow-up arranged
Outpatient follow-up with neurosurgery
Okay for discharge
Impression / Plan
-
PCP: Dr. Benítez
Card: Dr. Leslie Anglin
Neurosurgeon: Dr. Hussein Biggs, [place]
Impression:
Presented with continuing chest pain, SOB 07/12/2025
Admitted with chest pain and elevated Troponin 07/07/25, discharged 07/11/2025
Late presentation of acute IWMI, peak troponin 90.9
CAD
s/p 3 mm [place] JASON to 100% proximal occlusion of the RCA 07/07/2025
Residual 80% mid LAD lesion by cardiac cath 07/07/2025
FH premature CAD with h/o calcium score of 66 05/31/23
Recurrent meningioma
s/p right frontal craniotomy and XRT at [place] 2013
s/p repeat right frontal craniotomy at [place] 10/2024
Focal seizures
following with neurology at [place], symptoms are left arm paralysis and paresthesias
h/o right breast lumpectomy and XRT
Echo 08/02/23: EF 55-60%, no WMA, mild MR
Echo 07/07/25: EF 55 to 60%, normal LV size and function, no WMA, no significant change compared to echo 07/2023
ECHO 07/08/25: EF 57%, no regional wall motion abnormalities noted
Echo 07/12/2025: EF 45-50%, global hypokinesis, mild MR, mild TR, trivial pericardial effusion
Plan:
- she is feeling well and states she is ready for DC
- Status post acute inferior wall DC earlier this month resulting in RCA PCI followed by staged intervention of LAD 07/14
- She was found to have acute thrombus of left cephalic vein and there was initial concern for need for OAC, however discussed with hematology, and no indication for OAC
- Continue dual antiplatelet therapy with aspirin, Plavix
- Bilateral groin sites remain stable. Hemoglobin stable at 11.5
- Does feel mildly improved status post 20 mg IV Lasix 07/15, will give additional dose today. proBNP 1330. Would not discharge on standing diuretic therapy
- She continues on colchicine 0.3mg BID for suspected pericarditis post DC, would continue for 4 week total duration, started 07/10/25
- Repeat limited echocardiogram showed EF 45-50%. continue toprol. will add lisinopril 2.5mg daily. consider addition of SGLT2 inhibitor as OP
- BMP/proBNP in 1 week
- in SR on review of tele overnight
- ambulating around unit without difficulty
- for DC today
- OP cardiac follow up arranged
- cardiac rehab
- updated Faiza with neurosurgery on plan above 07/16/25
- d/w patient and at bedside. d/w hospitalist
HPI: Patient came to the ER today with chest pain and cardiology consulted for elevated Troponin. Patient's helps with bulk of HPI. Patient had initial right frontal craniotomy for meningioma in 2013 and had a recurrent craniotomy and
resection 10/2024. Patient's wound didn't heal well superficially and patient has had continued drainage of CSF so she is scheduled to have incision revision procedure at [place] 07/13/25. Also since her last craniotomy patient developed focal seizures
with symptoms of paresthesias and paralysis of her LUE and sometimes face. Patient follows with a neurologist at [place] and is now on Keppra. Patient started with one of her focal seizures yesterday afternoon, but she also had symptoms of central and
right sided chest pain. Symptoms lasted for hours and patient's noted that she was lethargic and not acting herself. This morning patient started with nausea and vomiting and so her called their care team at [place], but didn't feel
comfortable driving her to [place] ER so they came here. Initial ECG was concerning for inferior infarct. Initial Troponin 9.
Progress Note - Fiberglass Roller
Subjective
Date of Service: July 16, 2025
feeling well. eager for DC
Objective
Labs:
07/15/25 03:17
07/16/25 04:21
Labs
Hgb 11.5 g/dL (12.0-16.0) L 07/15/25 03:17
Hct 34.0 % (37.0-47.0) L 07/15/25 03:17
Plt Count 314 10^3/uL (130-400) 07/15/25 03:17
APTT Cancelled 07/14/25 16:15
Sodium 137 mmol/L (135-145) 07/16/25 04:21
Potassium 3.9 mmol/L (3.5-5.1) 07/16/25 04:21
BUN 19 mg/dl (7-17) H 07/16/25 04:21
Creatinine 0.7 mg/dL (0.6-1.0) 07/16/25 04:21
Glucose 97 mg/dl (70-99) 07/16/25 04:21
Vital Signs and I&O:
Vital Signs
Temp Pulse Resp BP Pulse Ox
97.6 F 68 16 133/40 94
07/16/25 07:11 07/16/25 07:30 07/16/25 07:11 07/16/25 07:14 07/16/25 07:11
Vital Signs
Temp Pulse Resp BP Pulse Ox
97.6 F 68 16 133/40 94
07/16/25 07:11 07/16/25 07:30 07/16/25 07:11 07/16/25 07:14 07/16/25 07:11
Intake & Output
07/14/25 07/15/25 07/16/25 07/17/25
07:59 07:59 07:59 07:59
Intake Total 1130 / 1130
Output Total 700 / 700 1250 / 1250
Balance 430 / 430 -1250 / -1250
Physical Exam
Physical Exam
GEN: No distress, awake, alert, oriented x3
HEENT: supple, anicteric, mmm, EOMI
LUNGS: CTA bilaterally, no wheezes/rales
CV: Reg, S1/S2, no murmur
ABD: soft, BS+, NT/ND
EXT: No cyanosis, clubbing, edema
NEURO: Gross non-focal
SKIN: Warm, pink, dry. No rash. B/L groin sites soft, NTTP
--- NOTE | 2025-07-16 10:20 | PN.CDI ---
CDI
- -
CDI:
Physician Documentation Request
Admit Date: 07/14/25 08:27
Dear Doctor,
Please review the following and provide your response in the progress notes.
Clinical Indicators:
Pt admitted with post op pericarditis /recent STEMI
Cardiac Cath report 07/14,' 2. Continue aggressive medical therapy for mild ischemic cardiomyopathy and risk factor modification for secondary CAD prevention. IV diuresis tomorrow given LVEDP of 22 mmHg...'
Cardiology note 07/15,' Extensive discussion had with patient and at bedside that at this point, chest pressure possible could be from component of heart failure in setting of LVEDP 22 so will trial IV diuresis but beyond that, also
question non-cardiac causes?..'
Hospitalist progress note 07/15,' Acute CHF decompensationCath showed LV end-diastolic pressures was 22Patient started on diuretics-follow weights..'
ECHO 07/13, ' 1. Left ventricular systolic function is mildly reduced; LVEF 45-50%..'
Please provide further specificity regarding the most likely type CHF you are evaluating, treating or monitoring.
Acute Systolic CHF
Acute Diastolic CHF
Other ( please specify)
Use of terms such as suspected, likely, concern for, or probable (associated with a specific diagnosis that is being evaluated, monitored, or treated as if it exists) are acceptable and can be coded in the inpatient setting, when documented at the
time of discharge.
Thank you,
Sary Melissa RN
CDI Specialist
[place] [facility]
Please use your independent medical judgment in providing your response.
[2025-07-16] MEDS: ZESTRIL 2.5 MG PO (11:14)
[2025-07-16 11:15] VITALS: BP 142/60
[2025-07-16] MEDS: LASIX 20 MG IV (11:15)
--- NOTE | 2025-07-16 11:35 | CM ---
Chart reviewed. Patient is independent of ADLS, lives with her in a 2 STH, 1 RAFA, 0 DME. Plan is for the patient to return home. CM to follow
--- NOTE | 2025-07-16 12:12 | W.DCSUMMARY ---
Discharge Summary
Discharge Data
Date of Admission: 07/14/25
Date of Discharge: 07/16/25
-
Pending Results: No
Hospital Course
Primary diagnosis:
Coronary artery disease
Recent non-ST elevation MS
Recent coronary stent RCA
Left anterior descending artery coronary stent on this admission
Ischemic cardiomyopathy with EF of 40 to 45%
Left cephalic vein occlusive thrombus secondary to thrombophlebitis
Secondary diagnosis:
Focal aware seizures
Meningioma status post prior resection
Hospital course:
Patient with recent late presentation of acute inferior wall MS this month had a PCI to RCA and had a planned staged intervention of LAD lesion presented back with intermittent chest pain and shortness of breath. She had PCI to LAD on this
admission. Echocardiogram showed mildly reduced LV systolic function with EF of 40 to 45% with global hypokinesis and regional variation.
LV EDP was 22 on current catheterization. She was given brief diuresis. She had clinical improvement with resolution of her symptoms. On recent admission CTA PE study was negative. Creatinine was normal post cardiac catheterization. She was
continued on aspirin but was switched to Plavix instead of Brilinta. She finished her diuretics prior to discharge. She was started on low-dose KWESI inhibitors with lisinopril. She remained on beta-heidi.
On second presentation she also complained about pain in the left upper extremity associated with mild erythema. She had prior IV access to the cephalic vein in the cubital fossa in the left elbow. Ultrasound showed occlusive thrombus within the
left cephalic vein within the proximal, mid and distal aspect of left upper arm extending into the antecubital region. No evidence of DVT in the left arm noted. Suspected thrombophlebitis. Was treated symptomatically. No indication of
anticoagulation. She had clinical improvement prior to discharge.
Today patient without chest pain or shortness of breath. Afebrile. Saturating well on room air. Pulse was 66 regular. Blood pressure 140/60. Chest was clear. Abdomen was benign. Left arm cephalic vein thrombophlebitis area with much
improvement in the pain and discomfort.
She was then medically stable for discharge and follow-up as an outpatient with cardiology.
Consultants on board:
Cardiology-Kami Shepherd
Portions of this chart may have been created with voice recognition software. Occasional wrong word or 'sound alike' substitutions may have occurred due to the inherent limitations of voice recognition software.
Discharge Plan
-
Patient Disposition: Home (Routine Discharge)
Discharge Diagnosis/Procedures: CAD ;Angioplasty and stent to Left Anterior Descending artery (07/14);Left arm cephalic vein thrombophlebitis
Diet: Low Cholesterol
Activity: As tolerated
Driving Restrictions: Not until seen by your Dr
Bathing Restrictions: None
Blood Work: BMP in 1 week
Other Services: Cardiac Rehab
Specialty Instructions: Weigh Daily- Call MD for wt gain/loss 3 lbs overnight/5 lbs in 1 week
Stand Alone Forms: DC Instructions- Cath/EP Lab
Referrals:
Maryanne Fernández PA-C [Specified Professional Personl, Cardiology] - 07/27/25 3:20 pm
Referral Note: You have a cardiology follow-up appointment at the [place] office with Dr. Nelson's physician rn first assistant, Maryanne. Please call with questions
Elgin Benítez, DO [Family Provider, Family Practice] - in less than 1 week
Prescriptions:
New
clopidogrel 75 mg Tablet
75 mg PO DAILY Qty: 30 0RF
lisinopril 2.5 mg Tablet
2.5 mg PO DAILY Qty: 30 0RF
Continued
ezetimibe [Zetia] 10 mg Tablet
10 mg PO DAILY
gabapentin 300 mg capsule
600 mg PO HS
levetiracetam 750 mg tablet
750 mg PO BID
clonazepam 0.5 mg Tablet,Disintegrating
0.5 mg PO DAILYPRN PRN (Reason: SEIZURES)
pantoprazole 40 mg Tablet,Delayed Release (Dr/Ec)
40 mg PO DAILY Qty: 30 0RF
aspirin 81 mg Tablet,Chewable
81 mg PO DAILY Qty: 30 0RF
metoprolol succinate 25 mg Tablet Extended Release 24 Hr
12.5 mg PO DAILY Qty: 30 0RF
colchicine 0.6 mg Tablet
0.3 mg PO BID Qty: 60 0RF
rosuvastatin 20 mg tablet
20 mg PO QPM
Discontinued
ticagrelor 90 mg Tablet
90 mg PO BID Qty: 60 0RF
Discharge Orders:
Discharge Patient (As Directed); Ordered 07/16/25
Ordered By: Percy Coles
Care Plan Goals
Care Plan Goals:
Problem: Readiness for enhanced knowledge related to diagnosis and treatment plan
Goal: Understand your diagnosis and treatment plan needs, including medications if applicable.
Instructions: Know your diagnosis, underlying causes and treatment plan options, including medications if applicable. Consult with your health care team to learn about your diagnosis and treatment plan, including medications if applicable.
Discharge Date and Time
Print Language: ECUADOREAN
--- NOTE | 2025-07-16 12:33 | PTCARENOTE ---
The patient is aaox3. Her vital signs are stable. NSR is noted on the monitor. Her left groin site is c/d/i. I removed her dressing and educated her on post cath care. Her right upper arm is red but not warm or painful. She does have a 'heaviness'
feeling in her chest that's tolerable. She is anticipating on being discharged today.
== END 2025-07-16 13:59 | disposition home or self-care (01) | DRG 321 ==
LOC: IVU 08:27
PROVIDERS: Emergency Medicine; Internal Medicine Cardiovascular Disease; Internal Medicine Interventional Cardiology; Nurse Practitioner; Nurse Practitioner Family; Physician Assistant; Physician Assistant Medical; Radiology Diagnostic Radiology; ADMITTING PHYSICIAN Internal Medicine; ATTENDING PHYSICIAN Internal Medicine; EMERGENCY PHYSICIAN Emergency Medicine; FAMILY PHYSICIAN Family Medicine
PROC: B2111ZZ Fluoroscopy of Multiple Coronary Arteries using Low Osmolar Contrast (ICD-10-PCS; 2025-07-14)
PROC: B5181ZA Fluoroscopy of Superior Vena Cava using Low Osmolar Contrast, Guidance (ICD-10-PCS; 2025-07-14)
PROC: 02H633Z Insertion of Infusion Device into Right Atrium, Percutaneous Approach (ICD-10-PCS; 2025-07-14)
PROC: 027034Z Dilation of Coronary Artery, One Artery with Drug-eluting Intraluminal Device, Percutaneous Approach (ICD-10-PCS; 2025-07-14)
PROC: 4A023N7 Measurement of Cardiac Sampling and Pressure, Left Heart, Percutaneous Approach (ICD-10-PCS; 2025-07-14)
PROC: B240ZZ3 Ultrasonography of Single Coronary Artery, Intravascular (ICD-10-PCS; 2025-07-14)
DX: I25.10 Atherosclerotic heart disease of native coronary artery without angina pectoris (principal); I21.19 ST elevation (STEMI) myocardial infarction involving other coronary artery of inferior wall; I50.21 Acute systolic (congestive) heart failure; I82.612 Acute embolism and thrombosis of superficial veins of left upper extremity; I25.5 Ischemic cardiomyopathy; I80.8 Phlebitis and thrombophlebitis of other sites; I25.2 Old myocardial infarction; M48.00 Spinal stenosis, site unspecified; Z85.3 Personal history of malignant neoplasm of breast; Z86.018 Personal history of other benign neoplasm; F41.9 Anxiety disorder, unspecified; Z88.0 Allergy status to penicillin; Z88.3 Allergy status to other anti-infective agents; Z88.2 Allergy status to sulfonamides; Z79.82 Long term (current) use of aspirin; E78.5 Hyperlipidemia, unspecified; K57.30 Diverticulosis of large intestine without perforation or abscess without bleeding
CPT/HCPCS: 36556; 71046; 76937; 77001; 80048; 83880; 84484; 85025; 85027; 85347; 85730; 92978; 93005; 93308; 93970; 93971; 99152; 99153; 99285; C1725; C1753; C1769; C1874; C1894; C9600; Q9967

== ENCOUNTER → 2025-07-23 11:35 | Outpatient (REF) | payer OTHER, SELFPAY ==
[2025-07-23 12:22] LABS: Hematocrit 37.9 % (37.0-47.0); Hemoglobin 12.7 g/dL (12.0-16.0); Mean Corp Hgb Conc. 33.5 g/dL (33.0-37.0); Mean Corpuscular Volume 89.4 fL (81.0-99.0); Nucleated Red Blood Cells % 0 %; Platelet Count 292 10^3/uL (130-400); Red Cell Dist. Width 12.2 % (11.5-14.5)
[2025-07-23 14:19] LABS: Glucose - Point of Care 104 mg/dl (70-99)
[2025-07-23 16:41] LABS: Blood Urea Nitrogen 17 mg/dl (7-17); Calcium 9.6 mg/dl (8.4-10.2); Carbon Dioxide 28 mmol/L (22-30); Chloride 101 mmol/L (98-107); Glucose 89 mg/dl (70-99); Potassium 4.2 mmol/L (3.5-5.1); Sodium 138 mmol/L (135-145); eGFR > 60.00
== END ==
LOC: REG 11:35
PROVIDERS: ATTENDING PHYSICIAN Internal Medicine Cardiovascular Disease; FAMILY PHYSICIAN Family Medicine; OTHER PHYSICIAN Family Medicine; OTHER PHYSICIAN Physician Assistant Medical
DX: I25.5 Ischemic cardiomyopathy (principal); D64.9 Anemia, unspecified
CPT/HCPCS: 36415; 80048; 82962; 83880; 85025

== ENCOUNTER 2025-07-23 14:28 | Emergency (ER) | payer OTHER, SELFPAY ==
[2025-07-23 14:31] VITALS: BP 196/94
--- NOTE | 2025-07-23 15:43 | ED.GENMED ---
History of Present Illness
General
Chief Complaint: Seizure
Source: patient, records and spouse
Time Seen by Provider: 07/23/25 14:54
History of Present Illness
History of Present Illness:
65-year-old female presenting to the emergency department for evaluation as a rapid response from cardiac rehab where she had a witnessed focal seizure that lasted for approximately 15 minutes, fully resolved by time of arrival to the ER. Family
states that this has been an ongoing issue for many years, had a meningioma removal back in October and since that time has had increased occurrences of the seizure, managed on Keppra 750 mg twice daily and uses Klonopin for rescue (had attempted
Klonopin given to her today but it was unsure if she had gotten much of the medication). Patient's spouse had been reaching out to patient's neurologist at the [facility], Dr. Jurado, but no changes to treatment plan were noted. Of
note, patient was recently admitted to this hospital earlier in the month for an NSTEMI status post stent placement and this was her first day at cardiac rehab.
Past History
Past History
ED Past Medical History: CAD, Hypercholesterolemia, [place], Other (Fibroids, diverticulosis) and Other (Meningioma)
ED Past Surgical History: Brain, Cardiac and Other (Neurosurgery at [facility] 2 resected meningioma on February 22.)
Social History
Tobacco: Non-smoker
Alcohol: Occasional
Drug: None
Personal:
Living: with family
Employment: Not employed
Family History
Family History: Other (Noncontributory)
Review of Systems
Review of Systems
All Other Systems: ROS reviewed and negative except as documented in HPI and ROS
Phy Exam
Physical Exam
Physical Exam:
GENERAL: Alert , in no apparent distress
EYE: conjunctiva clear
Head: Normocephalic atraumatic
NECK: Supple,
ENT: mmm.
LUNGS: no acute respiratory distress
NEUROLOGICAL: Alert and oriented
SKIN: Warm and dry, skin intact.
MUSCULOSKELETAL: well perfused.
PSYCH: Normal and appropriate interaction.
Scores
Heart Failure Risk
Heart Failure Risk Score: Not Applicable
Heart Score for Chest Pain Patients
STEMI patient?: Not applicable
Withdrawal Assessment of Alcohol
Withdrawal Assessment Completed?: Not applicable
Course
Vital Signs
Initial and Last Documented VS:
Initial Vital Signs
Temp Pulse Resp BP Pulse Ox
97.7 F 92 19 196/94 99
07/23/25 14:31 07/23/25 14:31 07/23/25 14:31 07/23/25 14:31 07/23/25 14:31
Last Documented Vital Signs
Temp Pulse Resp BP Pulse Ox
97.7 F 92 19 196/94 99
07/23/25 14:31 07/23/25 14:31 07/23/25 14:31 07/23/25 14:31 07/23/25 15:44
MDM/Problems Addressed
Differential Diagnosis Includes:
Breakthrough seizure
Syncope
Orthostasis
Cardiac Arrhythmia
Hypoglycemia
MDM/Problems Addressed:
65-year-old female presenting to the emergency department for evaluation following a breakthrough seizure, history of similar, follows with [facility] neurology. No focal neurologic deficits on exam. Will observe patient in the ER. Will attempt to
discuss case with patient's neurologist to discuss possible medication changes. Disposition pending
Chronic conditions affecting care: Neurological disorder
Acute Exacerbation and/or Progression of Chronic Illness: Neurological disorder
*Pulse Oximetry
SaO2: 99
Oxygen Mode of Delivery: Room air
Patient hypoxic: no
*Critical Care Note
Total Time (30-74mins, 75-104mins- exclusive of procedures): Not Applicable
Patient Management
Discussion with other providers: Pharmacy Technician Inpatient
Escalation/DeEscalation of care consider admission/obs:
While awaiting callback from patient's neurologist both the patient and expressed wishes to be discharged home. I do think this is reasonable as patient has known seizure history and is otherwise stable. Following discharge I did speak
with a nurse from patient's office who states that they will notify the neurologist and ensure close follow-up with the patient as well as if any medications will be changed.
ED Attending Note
-
Portions of this chart may have been created with voice recognition software.� Occasional wrong word or��sound alike� substitutions may have occurred due to the inherent limitations of voice recognition software.
Discharge Plan
Departure
Patient Disposition: Home (Routine Discharge)
Date of Disposition: 07/23/25
Time of Disposition: 15:43
Patient with high blood pressure during this ER visit?: Yes
Discharge Problem:
Seizure
Instructions: Seizures, Adult (DC)
Prescriptions:
No Action
ezetimibe [Zetia] 10 mg Tablet
10 mg PO DAILY
gabapentin 300 mg capsule
600 mg PO HS
levetiracetam 750 mg tablet
750 mg PO BID
clonazepam 0.5 mg Tablet,Disintegrating
0.5 mg PO DAILYPRN PRN (Reason: SEIZURES)
pantoprazole 40 mg Tablet,Delayed Release (Dr/Ec)
40 mg PO DAILY Qty: 30 0RF
aspirin 81 mg Tablet,Chewable
81 mg PO DAILY Qty: 30 0RF
metoprolol succinate 25 mg Tablet Extended Release 24 Hr
12.5 mg PO DAILY Qty: 30 0RF
colchicine 0.6 mg Tablet
0.3 mg PO BID Qty: 60 0RF
rosuvastatin 20 mg tablet
20 mg PO QPM
clopidogrel 75 mg Tablet
75 mg PO DAILY Qty: 30 0RF
lisinopril 2.5 mg Tablet
2.5 mg PO DAILY Qty: 30 0RF
Referrals:
Elgin Benítez DO [Family Provider, Family Practice]
Interventions
Interventions:
*General Assessment Last Done: 07/23/25 14:33
*ED COVID-19 Vaccine History Last Done: 07/23/25 14:33
*ED Influenza Vaccine History Last Done: 07/23/25 14:33
*Risk Screen - Suicide (C-SSRS) Last Done: 07/23/25 14:33
*Nursing Disposition Last Done: 07/23/25 16:02
ED- Cardiac Assessment Last Done: 07/23/25 15:22
ED- Neurological Assessment Last Done: 07/23/25 15:22
ED- Pulmonary Assessment Last Done: 07/23/25 15:22
Discharge Date and Time
Discharge Date/Time: 07/23/25 16:02
Print Language: FIJIAN
== END 2025-07-23 16:02 | disposition home or self-care (01) ==
LOC: EMR 14:28
PROVIDERS: EMERGENCY PHYSICIAN Student in an Organized Health Care Education/Training Program; FAMILY PHYSICIAN Family Medicine
DX: G40.909 Epilepsy, unspecified, not intractable, without status epilepticus (principal); E78.00 Pure hypercholesterolemia, unspecified; I25.10 Atherosclerotic heart disease of native coronary artery without angina pectoris; I25.2 Old myocardial infarction; Z86.011 Personal history of benign neoplasm of the brain; Z95.5 Presence of coronary angioplasty implant and graft
CPT/HCPCS: 99283

== ENCOUNTER 2025-07-23 17:04 | Outpatient (RCR) | payer OTHER, SELFPAY | END 2025-07-23 23:59 | disposition home or self-care (01) | LOC: CRHB 17:04 | PROVIDERS: ATTENDING PHYSICIAN Internal Medicine Cardiovascular Disease | DX: I25.10 Atherosclerotic heart disease of native coronary artery without angina pectoris (principal); Z95.5 Presence of coronary angioplasty implant and graft; I25.2 Old myocardial infarction | CPT/HCPCS: G0422; G0423 ==

== ENCOUNTER → 2025-08-04 07:13 | Outpatient (REF) | payer OTHER, SELFPAY ==
[2025-08-04 08:23] LABS: D-Dimer 0.38 ug/mlFEU (0.00-0.50)
[2025-08-04 08:41] LABS: Hematocrit 39.6 % (37.0-47.0); Hemoglobin 13.3 g/dL (12.0-16.0); Mean Corp Hgb Conc. 33.6 g/dL (33.0-37.0); Mean Corpuscular Volume 89.4 fL (81.0-99.0); Nucleated Red Blood Cells % 0 %; Platelet Count 244 10^3/uL (130-400); Red Cell Dist. Width 11.9 % (11.5-14.5)
[2025-08-04 08:58] LABS: ALT (SGPT) 22 U/L (0-35); AST (SGOT) 24 U/L (14-36); Albumin 4.7 g/dl (3.5-5.0); Alkaline Phosphatase 83 U/L (38-126); Blood Urea Nitrogen 31 mg/dl (7-17); Calcium 9.4 mg/dl (8.4-10.2); Carbon Dioxide 29 mmol/L (22-30); Chloride 98 mmol/L (98-107); Glucose 94 mg/dl (70-99); Iron 143 ug/dl (37-170); Potassium 4.2 mmol/L (3.5-5.1); Sodium 137 mmol/L (135-145); Total Protein 7.4 g/dl (6.3-8.2); eGFR > 60.00
[2025-08-04 09:07] LABS: Total Iron Binding Capacity 370 ug/dl (265-497)
[2025-08-04 09:11] LABS: TSH 4.94 uIU/ml (0.47-4.68)
[2025-08-04 09:15] LABS: Ferritin 23.5 ng/ml (11.1-264.0)
[2025-08-04 09:46] LABS: Folate 14.1 ng/ml (2.76-20); Vitamin B12 998 pg/ml (239-931)
[2025-08-06 06:34] LABS: ANA, IgG Reflex to HEp-2 Detected (None Detected)
[2025-08-06 21:44] LABS: Albumin 4.15 g/dL (3.75-5.01); SPEP IFE Reflex Not Done; Total Protein-Electrophoresis 7.0 g/dL (6.3-8.2)
== END ==
LOC: EMG 07:13
PROVIDERS: ATTENDING PHYSICIAN Family Medicine
DX: R20.2 Paresthesia of skin (principal); R20.0 Anesthesia of skin
CPT/HCPCS: 36415; 80053; 82607; 82728; 82746; 83540; 83550; 84155; 84165; 84443; 85025; 85379; 86038; 86618; 95886; 95910